=== PATIENT | male | born 1970 | race Caucasian/White ===

== ENCOUNTER 2017-11-09 10:47 | Inpatient (IN) | payer SELFPAY ==
[~2017-11-09] VITALS: Ht 175.3 cm; Wt 60.7 kg
--- NOTE | ~2017-11-09 | OP ---
PATIENT NAME: ELIE MARIA MEDICAL RECORD: [id number] :66 LOCATION:D.M2 D.2106 ADMISSION DATE:11/09/17 SURGEON: NOÉ VILLALTA MD DATE OF OPERATION: 11/14/2017 PREOPERATIVE DIAGNOSES: 1. Right foot necrosis with cellulitis. 2. Diabetes mellitus. 3. Tobacco-dependence syndrome. POSTOPERATIVE DIAGNOSES: 1. Right foot necrosis with cellulitis. 2. Diabetes mellitus. 3. Tobacco-dependence syndrome. PROCEDURE: Right BKA. SURGEON: Noé Villalta MD REPORT OF PROCEDURE: The patient's right lower extremity was prepped and draped in sterile fashion. The area was marked on the right mid calf. Using sharp dissection, we came through the skin, and then using electrocautery we came through the fascia and subcutaneous tissue. We removed any of the muscle tissue, which was present leaving a posterior flap of the gastrocnemius muscle. The three vascular bundles were found and these were ligated with 3-0 silk ties. Once the bone was completely exposed and it was transected using an oscillating saw. There was no sign of any active bleeding anywhere from the wound. We then irrigated out the wound with normal saline. The posterior flap was sutured to the anterior fascial layer using interrupted 2-0 Vicryls. A Clari drain was then placed in the subcutaneous tissue overlying the muscle. The subcutaneous tissues were then reapproximated with interrupted 3-0 Vicryls and the skin was closed with laila. COMPLICATIONS: None. CONDITION: Stable. ANESTHESIA: General endotracheal. BLOOD LOSS: 100 mL. TRANSINT:[id number] Voice Confirmation ID: [id number] DOCUMENT ID: [id number] NOÉ VILLALTA MD at 1539 CC: [id number] DICTATION DATE: 11/14/17 1335 CERTIFIED ORTHOTIST PRACTICE MANAGER: 11/14/17 1403 ADM IN [place] [id number] [place] [address]
[~2017-11-09 10:47] MED LIST: GLIMEPIRIDE4 MG PO; GLUCOPHAGE500 MG PO; HYDROCODONE-APA1 TAB PO; LEVAQUIN500 MG PO; TUMS500 MG PO
[2017-11-09] MEDS ORDERED: IBUPROFEN800 MG PO (11:46)
[2017-11-09 11:47] VITALS: BP 132/73; BMI 17.6
[2017-11-09 12:07] LABS: BASOPHILS 0.1 % (0-2); EOSINOPHILS 0.4 % (0-7); HEMATOCRIT 37.4 % (42.0-54.0); HEMOGLOBIN 12.9 g/dL (13.5-17.5); IMMATURE GRANULOCYTES 0.3 % (0-5); LYMPHOCYTES 7.5 % (15-50); MCH 32.9 pg (26.0-34.0); MCHC 34.5 g/dL (31.0-37.0); MCV 95.4 fL (80.0-100.0); MEAN PLATELET VOLUME 9.3 fL (7.4-10.4); MONOCYTES 7.8 % (2-11); NEUTROPHILS 83.9 % (40-80); PLATELET COUNT 284 10x3/uL (130-400); RBC 3.92 10x6/uL (4.20-6.10); RDW 12.4 % (11.5-14.5)
[2017-11-09 12:29] LABS: ALBUMIN 2.1 g/dL (3.4-5.0); ALKALINE PHOSPHATASE 172 U/L (46-116); ALT (SGPT) 20 U/L (10-68); CALCIUM 8.6 mg/dL (8.5-10.1); CARBON DIOXIDE 27.3 mmol/L (21.0-32.0); CHLORIDE - SERUM 91 mmol/L (98-107); CREATININE - SERUM 0.8 mg/dL (0.6-1.3); POTASSIUM - SERUM 3.8 mmol/L (3.5-5.1); PROTEIN - SERUM 6.5 g/dL (6.4-8.2); SODIUM 131 mmol/L (136-145); UREA NITROGEN 11 mg/dL (7-18); eGFR NON AFRICAN AMERICAN > 90 mL/min (90-120)
[2017-11-09 12:33] LABS: CALC OSMOLALITY 289 mosm/kg (275-300)
[2017-11-09 12:35] LABS: GLUCOSE 602 mg/dL (74-106)
[2017-11-09 19:00] VITALS: BP 91/62
[2017-11-10 04:00] VITALS: BP 103/62
[2017-11-10 05:25] LABS: BASOPHILS 0.2 % (0-2); EOSINOPHILS 2.2 % (0-7); HEMATOCRIT 34.4 % (42.0-54.0); HEMOGLOBIN 12.1 g/dL (13.5-17.5); IMMATURE GRANULOCYTES 0.6 % (0-5); LYMPHOCYTES 15.3 % (15-50); MCH 32.9 pg (26.0-34.0); MCHC 35.2 g/dL (31.0-37.0); MCV 93.5 fL (80.0-100.0); MEAN PLATELET VOLUME 9.3 fL (7.4-10.4); MONOCYTES 10.1 % (2-11); NEUTROPHILS 71.6 % (40-80); PLATELET COUNT 261 10x3/uL (130-400); RBC 3.68 10x6/uL (4.20-6.10); RDW 12.2 % (11.5-14.5); WBC 16.3 10x3/uL (4.8-10.8)
[2017-11-10 06:33] LABS: ALBUMIN 1.8 g/dL (3.4-5.0); ALKALINE PHOSPHATASE 170 U/L (46-116); ALT (SGPT) 24 U/L (10-68); CALCIUM 8.2 mg/dL (8.5-10.1); CARBON DIOXIDE 30.6 mmol/L (21.0-32.0); CHLORIDE - SERUM 95 mmol/L (98-107); SODIUM 132 mmol/L (136-145); UREA NITROGEN 11 mg/dL (7-18)
[2017-11-10 06:36] LABS: CALC OSMOLALITY 265 mosm/kg (275-300); CREATININE - SERUM 0.4 mg/dL (0.6-1.3); GLUCOSE 142 mg/dL (74-106); POTASSIUM - SERUM 3.1 mmol/L (3.5-5.1); eGFR NON AFRICAN AMERICAN > 90 mL/min (90-120)
[2017-11-10 08:55] VITALS: BP 116/71
[2017-11-10 11:46] VITALS: BP 112/74
[2017-11-10 13:09] VITALS: Ht 175.3 cm; Wt 60.7 kg
[2017-11-10 15:46] VITALS: BP 99/59
[2017-11-10 21:04] VITALS: BP 98/59
[2017-11-11 00:52] VITALS: BP 100/64
[2017-11-11 05:21] VITALS: BP 103/60
[2017-11-11 06:55] LABS: BASOPHILS 0.1 % (0-2); EOSINOPHILS 0.7 % (0-7); HEMATOCRIT 35.8 % (42.0-54.0); HEMOGLOBIN 12.3 g/dL (13.5-17.5); IMMATURE GRANULOCYTES 0.6 % (0-5); LYMPHOCYTES 10.3 % (15-50); MCH 32.5 pg (26.0-34.0); MCHC 34.4 g/dL (31.0-37.0); MCV 94.7 fL (80.0-100.0); MEAN PLATELET VOLUME 9.7 fL (7.4-10.4); MONOCYTES 9.1 % (2-11); NEUTROPHILS 79.2 % (40-80); PLATELET COUNT 318 10x3/uL (130-400); RBC 3.78 10x6/uL (4.20-6.10); RDW 12.4 % (11.5-14.5); WBC 16.3 10x3/uL (4.8-10.8)
[2017-11-11 07:28] LABS: ALBUMIN 1.8 g/dL (3.4-5.0); ALKALINE PHOSPHATASE 182 U/L (46-116); ALT (SGPT) 25 U/L (10-68); BILIRUBIN - TOTAL 0.38 mg/dL (0.2-1.3); CALC OSMOLALITY 267 mosm/kg (275-300); CALCIUM 8.1 mg/dL (8.5-10.1); CARBON DIOXIDE 30.9 mmol/L (21.0-32.0); CHLORIDE - SERUM 96 mmol/L (98-107); GLUCOSE 144 mg/dL (74-106); POTASSIUM - SERUM 3.3 mmol/L (3.5-5.1); SODIUM 133 mmol/L (136-145); UREA NITROGEN 11 mg/dL (7-18)
[2017-11-11 07:31] LABS: CREATININE - SERUM 0.6 mg/dL (0.6-1.3); eGFR NON AFRICAN AMERICAN > 90 mL/min (90-120)
[2017-11-11 08:00] VITALS: BP 102/61
[2017-11-11 12:00] VITALS: BP 105/78
[2017-11-11 20:00] VITALS: BP 103/63
[2017-11-12 04:00] VITALS: BP 114/78
[2017-11-12 05:38] LABS: BASOPHILS 0.1 % (0-2); EOSINOPHILS 0.8 % (0-7); HEMATOCRIT 34.4 % (42.0-54.0); HEMOGLOBIN 11.8 g/dL (13.5-17.5); IMMATURE GRANULOCYTES 0.6 % (0-5); LYMPHOCYTES 9.7 % (15-50); MCH 32.6 pg (26.0-34.0); MCHC 34.3 g/dL (31.0-37.0); MEAN PLATELET VOLUME 9.4 fL (7.4-10.4); MONOCYTES 8.3 % (2-11); NEUTROPHILS 80.5 % (40-80); PLATELET COUNT 303 10x3/uL (130-400); RBC 3.62 10x6/uL (4.20-6.10); RDW 12.5 % (11.5-14.5); WBC 16.4 10x3/uL (4.8-10.8)
[2017-11-12 06:01] LABS: ALBUMIN 1.7 g/dL (3.4-5.0); ALKALINE PHOSPHATASE 191 U/L (46-116); ALT (SGPT) 25 U/L (10-68); CALCIUM 8.4 mg/dL (8.5-10.1); CARBON DIOXIDE 28.8 mmol/L (21.0-32.0); CHLORIDE - SERUM 98 mmol/L (98-107); CREATININE - SERUM 0.5 mg/dL (0.6-1.3); POTASSIUM - SERUM 3.9 mmol/L (3.5-5.1); SODIUM 134 mmol/L (136-145); UREA NITROGEN 11 mg/dL (7-18); eGFR NON AFRICAN AMERICAN > 90 mL/min (90-120)
[2017-11-12 06:04] LABS: CALC OSMOLALITY 273 mosm/kg (275-300); GLUCOSE 230 mg/dL (74-106)
[2017-11-12 08:00] VITALS: BP 109/72
[2017-11-12 12:00] VITALS: BP 118/80
[2017-11-12 16:00] VITALS: BP 109/68
[2017-11-12 20:00] VITALS: BP 99/65
[2017-11-13] VITALS: BP 102/58; BP 93/57
[2017-11-13 05:48] LABS: BASOPHILS 0.2 % (0-2); EOSINOPHILS 1.6 % (0-7); HEMATOCRIT 33.7 % (42.0-54.0); HEMOGLOBIN 11.4 g/dL (13.5-17.5); IMMATURE GRANULOCYTES 0.6 % (0-5); LYMPHOCYTES 11.5 % (15-50); MCH 32.3 pg (26.0-34.0); MCHC 33.8 g/dL (31.0-37.0); MCV 95.5 fL (80.0-100.0); MEAN PLATELET VOLUME 9.2 fL (7.4-10.4); MONOCYTES 8.3 % (2-11); NEUTROPHILS 77.8 % (40-80); PLATELET COUNT 329 10x3/uL (130-400); RBC 3.53 10x6/uL (4.20-6.10); RDW 12.4 % (11.5-14.5); WBC 14.7 10x3/uL (4.8-10.8)
[2017-11-13 06:16] LABS: ALBUMIN 1.6 g/dL (3.4-5.0); ALKALINE PHOSPHATASE 189 U/L (46-116); ALT (SGPT) 21 U/L (10-68); CALC OSMOLALITY 271 mosm/kg (275-300); CALCIUM 8.1 mg/dL (8.5-10.1); CHLORIDE - SERUM 99 mmol/L (98-107); CREATININE - SERUM 0.5 mg/dL (0.6-1.3); POTASSIUM - SERUM 3.7 mmol/L (3.5-5.1); PROTEIN - SERUM 5.9 g/dL (6.4-8.2); SODIUM 134 mmol/L (136-145); UREA NITROGEN 10 mg/dL (7-18); eGFR NON AFRICAN AMERICAN > 90 mL/min (90-120)
[2017-11-13 06:17] LABS: GLUCOSE 180 mg/dL (74-106)
[2017-11-13 07:58] VITALS: BP 104/70
[2017-11-13 12:22] VITALS: BP 114/75
[2017-11-13 16:35] VITALS: BP 109/70
[2017-11-13 22:39] VITALS: BP 110/63
[2017-11-14 05:20] LABS: BASOPHILS 0.1 % (0-2); HEMOGLOBIN 10.8 g/dL (13.5-17.5); IMMATURE GRANULOCYTES 0.6 % (0-5); LYMPHOCYTES 13.7 % (15-50); MCH 32.4 pg (26.0-34.0); MCHC 33.8 g/dL (31.0-37.0); MCV 96.1 fL (80.0-100.0); MEAN PLATELET VOLUME 9.4 fL (7.4-10.4); MONOCYTES 10.1 % (2-11); NEUTROPHILS 73.5 % (40-80); PLATELET COUNT 362 10x3/uL (130-400); RBC 3.33 10x6/uL (4.20-6.10); RDW 12.5 % (11.5-14.5); WBC 13.8 10x3/uL (4.8-10.8)
[2017-11-14 05:38] LABS: ALBUMIN 1.6 g/dL (3.4-5.0); ALKALINE PHOSPHATASE 181 U/L (46-116); ALT (SGPT) 20 U/L (10-68); CALC OSMOLALITY 272 mosm/kg (275-300); CALCIUM 8.3 mg/dL (8.5-10.1); CARBON DIOXIDE 29.2 mmol/L (21.0-32.0); CHLORIDE - SERUM 99 mmol/L (98-107); CREATININE - SERUM 0.5 mg/dL (0.6-1.3); GLUCOSE 161 mg/dL (74-106); POTASSIUM - SERUM 3.8 mmol/L (3.5-5.1); PROTEIN - SERUM 5.8 g/dL (6.4-8.2); SODIUM 135 mmol/L (136-145); UREA NITROGEN 12 mg/dL (7-18); eGFR NON AFRICAN AMERICAN > 90 mL/min (90-120)
[2017-11-14 06:16] VITALS: BP 95/59
[2017-11-14 07:54] VITALS: BP 112/73
[2017-11-14 14:36] VITALS: BP 115/74
[2017-11-14 21:12] VITALS: BP 104/68
[2017-11-15 00:48] VITALS: BP 108/68
[2017-11-15 05:33] VITALS: BP 109/73
[2017-11-15 07:46] VITALS: BP 112/67
[2017-11-15 12:51] VITALS: BP 123/83
[2017-11-15 15:48] VITALS: BP 120/83
[2017-11-15 21:02] VITALS: BP 109/71
[2017-11-16 00:13] VITALS: BP 102/63
[2017-11-16 06:19] LABS: BASOPHILS 0.3 % (0-2); EOSINOPHILS 1.6 % (0-7); HEMATOCRIT 30.7 % (42.0-54.0); HEMOGLOBIN 10.3 g/dL (13.5-17.5); IMMATURE GRANULOCYTES 0.9 % (0-5); LYMPHOCYTES 14.6 % (15-50); MCH 31.9 pg (26.0-34.0); MCHC 33.6 g/dL (31.0-37.0); MEAN PLATELET VOLUME 8.8 fL (7.4-10.4); MONOCYTES 8.9 % (2-11); NEUTROPHILS 73.7 % (40-80); RBC 3.23 10x6/uL (4.20-6.10); RDW 12.1 % (11.5-14.5); WBC 11.6 10x3/uL (4.8-10.8)
[2017-11-16 06:24] LABS: CALC OSMOLALITY 268 mosm/kg (275-300); CALCIUM 7.7 mg/dL (8.5-10.1); CARBON DIOXIDE 28.3 mmol/L (21.0-32.0); CHLORIDE - SERUM 100 mmol/L (98-107); CREATININE - SERUM 0.5 mg/dL (0.6-1.3); GLUCOSE 182 mg/dL (74-106); POTASSIUM - SERUM 3.4 mmol/L (3.5-5.1); SODIUM 132 mmol/L (136-145); UREA NITROGEN 9 mg/dL (7-18); eGFR NON AFRICAN AMERICAN > 90 mL/min (90-120)
[2017-11-16 06:43] LABS: PLATELET COUNT 459 10x3/uL (130-400)
[2017-11-16 12:09] VITALS: BP 107/72
[2017-11-16] MEDS ORDERED: LISINOPRIL5 MG PO (13:40)
== END 2017-11-16 18:08 | disposition home health service (06) | DRG 617 ==
LOC: D.SDCHOLD 10:47 → D.M2 10:47
PROVIDERS: Emergency Medicine; Family Medicine; Surgery
PROC: 0Y6H0Z2 Detachment at Right Lower Leg, Mid, Open Approach (ICD-10-PCS; principal; 2017-11-14 12:30)
DX: E11.628 Type 2 diabetes mellitus with other skin complications (principal); L03.115 Cellulitis of right lower limb; F17.203 Nicotine dependence unspecified, with withdrawal; E11.65 Type 2 diabetes mellitus with hyperglycemia; Z91.14 Patient's other noncompliance with medication regimen; G54.6 Phantom limb syndrome with pain

== ENCOUNTER → 2018-01-15 18:14 | Outpatient (CLI) | payer SELFPAY ==
[2017-11-10 13:09] VITALS: BMI 17.5
[~2018-01-15 18:14] MED LIST changes: +IBUPROFEN800 MG PO; +LISINOPRIL5 MG PO
== END | disposition home or self-care (01) ==
LOC: D.LABREF 18:14
DX: Z89.511 Acquired absence of right leg below knee (principal)

== ENCOUNTER → 2018-02-26 14:54 | Outpatient (CLI) | payer MEDICAID ==
[2017-11-10 13:09] VITALS: BMI 17.5
[~2018-02-26 14:54] MED LIST changes: +BAYER CHEWABLE81 MG PO; +COLACE100 MG PO; +K-DUR20 MEQ PO; +LASIX40 MG PO; +LEVAQUIN750 MG PO; +PERCOCET 10/3251 TA1 PO; +PROTONIX I40 MG/VIAL IV; +QUESTRAN PACK4 G/PKT PO; +SYNTHROID50 MCG PO
== END | disposition home or self-care (01) ==
LOC: D.LABREF 14:54
DX: L02.91 Cutaneous abscess, unspecified (principal); Z98.890 Other specified postprocedural states

== ENCOUNTER 2018-03-13 09:57 | Inpatient (IN) | payer MEDICAID ==
[~2018-03-13] VITALS: Ht 175.3 cm; Wt 53.6 kg
--- NOTE | ~2018-03-13 | OP ---
PATIENT NAME: ELIE MARIA MEDICAL RECORD: [id number] :68 LOCATION:D.MS Fleming2230 ADMISSION DATE:03/13/18 SURGEON: NOÉ VILLALTA MD DATE OF OPERATION: 03/20/2018 PREOPERATIVE DIAGNOSES: 1. Osteomyelitis of the right lower extremity. 2. Right below-knee amputation stump abscess. 3. Sepsis. 4. Diabetes mellitus. 5. Tobacco dependence syndrome. POSTOPERATIVE DIAGNOSES: 1. Osteomyelitis of the right lower extremity. 2. Right below-knee amputation stump abscess. 3. Sepsis. 4. Diabetes mellitus. 5. Tobacco dependence syndrome. PROCEDURE: 1. Left upper extremity PICC line placement with fluoroscopic interpretation. 2. Incision and debridement of right lower extremity abscess. SURGEON: Noé Villalta MD REPORT OF PROCEDURE: The patient's left upper extremity was prepped and draped in sterile fashion. Using ultrasound guidance, a needle was used to cannulate the left brachial vein and a guidewire was advanced with ease. Fluoro was used to note that the wire was in good position in the venous system. The dilator trocar device was placed over the wire. The PICC line was then cut with a beveled tip at 42 cm. The catheter was advanced over the wire and resting in good position at the right atrial superior vena caval junction. The dilator was then removed. The catheter aspirated nonpulsatile dark blood and flushed easily with heparinized saline. This was sutured into place with 3-0 Prolenes and dressed appropriately. The right lower extremity was then prepped and draped in sterile fashion. We began irrigating out the wound with peroxide and saline solution and there was not still noted to be purulent material present. I did a digital manipulation of the tissue and was never able to find any other pockets present. Eventually just extended the incisions on the posterior aspect of the thigh and calf. This allowed me to see more clearly inside the wound and performed debridement of some of the surrounding fatty tissue, no robbie purulent pockets were noted, and the underlying fascia and muscular tissues all appeared to be viable. We irrigated out the wound again with peroxide solution and then packed the wound with Kerlix dipped in peroxide. We then dressed the area with 4 x 4s and Felice Souzax. COMPLICATIONS: None. CONDITION: Stable. ANESTHESIA: General endotracheal. BLOOD LOSS: 30 mL. TRANSINT:[id number] Voice Confirmation ID: [id number] DOCUMENT ID: [id number] OPERATIVE REPORT [id number] ELIE MARIA CHRISTIAN MD at 0804 CC: [id number] DICTATION DATE: 03/20/18 1541 VFX ARTIST: 03/20/18 1605 DIS IN 03/21/18 [place] [address] [place] [id number]
--- NOTE | ~2018-03-13 | OP ---
PATIENT NAME: ELIE MARIA MEDICAL RECORD: [id number] :68 LOCATION:D.MS Fleming2230 ADMISSION DATE:03/13/18 SURGEON: NOÉ VILLALTA MD DATE OF OPERATION: 03/15/2018 PREOPERATIVE DIAGNOSES: 1. Right BKA stump infection. 2. Right lower extremity abscess. 3. Diabetes mellitus. 4. Tobacco dependence syndrome. 5. Sepsis. POSTOPERATIVE DIAGNOSES: 1. Right BKA stump infection. 2. Right lower extremity abscess. 3. Diabetes mellitus. 4. Tobacco dependence syndrome. 5. Sepsis. PROCEDURE: I&D of the right lower extremity. SURGEON: Noé Villalta MD REPORT OF PROCEDURE: The patient's right lower extremity was prepped and draped in sterile fashion. The patient had an opening at the stump incision where pus was draining. We probed this area or able to extend a suction catheter into the posterior aspect of the leg. A longitudinal incision was made in this area and we found a large amount of pus. We continued to probe up the leg and on the posterior aspect of the thigh, we reached the extent of the abscess pocket. Another opening was made over this area and there was a large amount of pus, there are 2. We irrigated out these areas with normal saline followed by peroxide and saline solution. At the conclusion of the case, we packed the wound with a 2-inch Kerlix had been dipped in peroxide and dressed it with 4 x 4's and Kerlix. COMPLICATIONS: None. CONDITION: Stable. ANESTHESIA: General endotracheal. BLOOD LOSS: Minimal. TRANSINT:[id number] Voice Confirmation ID: [id number] DOCUMENT ID: [id number] NOÉ VILLALTA MD at 0804 CC: SUSAN CASTELAN MD [id number] DICTATION DATE: 03/15/18 1237 CATHEAD WORKER: 03/15/18 1248 DIS IN 03/21/18 [place] [id number]
[~2018-03-13 09:57] MED LIST changes: -BAYER CHEWABLE81 MG PO; -COLACE100 MG PO; -K-DUR20 MEQ PO; -LASIX40 MG PO; -LEVAQUIN750 MG PO; -PERCOCET 10/3251 TA1 PO; -PROTONIX I40 MG/VIAL IV; -QUESTRAN PACK4 G/PKT PO; -SYNTHROID50 MCG PO
[2018-03-13 12:34] LABS: HEMATOCRIT 38.6 % (42.0-54.0); HEMOGLOBIN 13.8 g/dL (13.5-17.5); MCH 32.6 pg (26.0-34.0); MCHC 35.8 g/dL (31.0-37.0); MCV 91.3 fL (80.0-100.0); MEAN PLATELET VOLUME 9.5 fL (7.4-10.4); PLATELET COUNT 375 10x3/uL (130-400); RBC 4.23 10x6/uL (4.20-6.10); RDW 13.4 % (11.5-14.5); WBC 22.3 10x3/uL (4.8-10.8)
[2018-03-13 12:41] LABS: CALC OSMOLALITY 277 mosm/kg (275-300); CALCIUM 8.5 mg/dL (8.5-10.1); CARBON DIOXIDE 29.8 mmol/L (21.0-32.0); CHLORIDE - SERUM 90 mmol/L (98-107); CREATININE - SERUM 0.4 mg/dL (0.6-1.3); POTASSIUM - SERUM 5.9 mmol/L (3.5-5.1); SODIUM 129 mmol/L (136-145); UREA NITROGEN 12 mg/dL (7-18); eGFR NON AFRICAN AMERICAN > 90 mL/min (90-120)
[2018-03-13 12:42] LABS: GLUCOSE 432 mg/dL (74-106)
[2018-03-13 13:10] LABS: LYMPHOCYTES 13 % (15-50); MONOCYTES 3 % (2-11); NEUTROPHILS 62 % (40-80); PLATELET ESTIMATE NORMAL
[2018-03-13 13:43] LABS: ERYTHROCYTE SEDIMENTATION RATE 61 mm/hr (0-20)
[2018-03-13] MEDS ORDERED: GLIMEPIRIDE4 MG PO (16:17)
[2018-03-13] MEDS ORDERED: PERCOCET 10/3251 TA1 PO (16:19)
[2018-03-13 18:18] VITALS: BP 114/75
[2018-03-13 20:00] VITALS: BP 100/57
[2018-03-14 04:00] VITALS: BP 96/56
[2018-03-14 07:00] LABS: BASOPHILS 0.1 % (0-2); EOSINOPHILS 0.5 % (0-7); HEMATOCRIT 37.7 % (42.0-54.0); HEMOGLOBIN 13.2 g/dL (13.5-17.5); IMMATURE GRANULOCYTES 0.4 % (0-5); LYMPHOCYTES 9.7 % (15-50); MCH 31.5 pg (26.0-34.0); MONOCYTES 6.7 % (2-11); NEUTROPHILS 82.6 % (40-80); RBC 4.19 10x6/uL (4.20-6.10); RDW 13.3 % (11.5-14.5); WBC 19.5 10x3/uL (4.8-10.8)
[2018-03-14 07:01] LABS: PLATELET COUNT 289 10x3/uL (130-400)
[2018-03-14 07:33] LABS: CALC OSMOLALITY 267 mosm/kg (275-300); CALCIUM 7.9 mg/dL (8.5-10.1); CARBON DIOXIDE 32.8 mmol/L (21.0-32.0); CHLORIDE - SERUM 95 mmol/L (98-107); CREATININE - SERUM 0.4 mg/dL (0.6-1.3); GLUCOSE 139 mg/dL (74-106); POTASSIUM - SERUM 3.2 mmol/L (3.5-5.1); SODIUM 133 mmol/L (136-145); UREA NITROGEN 13 mg/dL (7-18); eGFR NON AFRICAN AMERICAN > 90 mL/min (90-120)
[2018-03-14 08:46] VITALS: BP 111/70
[2018-03-14 13:37] VITALS: BMI 17.5
[2018-03-14 16:33] VITALS: BP 124/84
[2018-03-14 20:00] VITALS: BP 109/60
[2018-03-15] VITALS (13 sets, daily range): BP systolic 90–134; BP diastolic 54–86
[2018-03-15] MEDS ORDERED: SYNTHROID50 MCG PO ×2 (01:10→01:12)
[2018-03-15] MEDS ORDERED: BAYER CHEWABLE81 MG PO (01:12)
[2018-03-15] MEDS ORDERED: COLACE100 MG PO (01:14)
[2018-03-15 05:18] LABS: BASOPHILS 0.1 % (0-2); EOSINOPHILS 0.8 % (0-7); HEMATOCRIT 34.5 % (42.0-54.0); HEMOGLOBIN 11.8 g/dL (13.5-17.5); IMMATURE GRANULOCYTES 0.4 % (0-5); LYMPHOCYTES 10.9 % (15-50); MCH 30.9 pg (26.0-34.0); MCHC 34.2 g/dL (31.0-37.0); MCV 90.3 fL (80.0-100.0); MEAN PLATELET VOLUME 8.9 fL (7.4-10.4); MONOCYTES 7.5 % (2-11); NEUTROPHILS 80.3 % (40-80); PLATELET COUNT 275 10x3/uL (130-400); RBC 3.82 10x6/uL (4.20-6.10); RDW 13.3 % (11.5-14.5)
[2018-03-15 05:33] LABS: WBC 13.7 10x3/uL (4.8-10.8)
[2018-03-15 05:36] LABS: ALBUMIN 1.6 g/dL (3.4-5.0); ALKALINE PHOSPHATASE 169 U/L (46-116); ALT (SGPT) 16 U/L (10-68); CALCIUM 7.5 mg/dL (8.5-10.1); CARBON DIOXIDE 29.4 mmol/L (21.0-32.0); CHLORIDE - SERUM 98 mmol/L (98-107); CREATININE - SERUM 0.5 mg/dL (0.6-1.3); GLUCOSE 181 mg/dL (74-106); PROTEIN - SERUM 5.4 g/dL (6.4-8.2); SODIUM 135 mmol/L (136-145); eGFR NON AFRICAN AMERICAN > 90 mL/min (90-120)
[2018-03-15 05:43] LABS: CALC OSMOLALITY 273 mosm/kg (275-300); UREA NITROGEN 9 mg/dL (7-18)
[2018-03-15 05:44] LABS: POTASSIUM - SERUM 2.9 mmol/L (3.5-5.1)
[2018-03-15 11:15] LABS: MAGNESIUM - SERUM 1.6 mg/dL (1.8-2.4); PHOSPHOROUS 2.9 mg/dL (2.5-4.9)
[2018-03-16] VITALS (7 sets, daily range): BP systolic 93–115; BP diastolic 55–76; Ht 175.3 cm; Wt 53.6 kg
[2018-03-16 05:32] LABS: BASOPHILS 0.1 % (0-2); EOSINOPHILS 0.7 % (0-7); HEMATOCRIT 34.1 % (42.0-54.0); HEMOGLOBIN 11.5 g/dL (13.5-17.5); IMMATURE GRANULOCYTES 0.6 % (0-5); LYMPHOCYTES 9.8 % (15-50); MCH 30.7 pg (26.0-34.0); MCHC 33.7 g/dL (31.0-37.0); MCV 91.2 fL (80.0-100.0); MEAN PLATELET VOLUME 8.8 fL (7.4-10.4); MONOCYTES 6.8 % (2-11); PLATELET COUNT 274 10x3/uL (130-400); RBC 3.74 10x6/uL (4.20-6.10); RDW 13.5 % (11.5-14.5); WBC 13.6 10x3/uL (4.8-10.8)
[2018-03-16 05:56] LABS: ALBUMIN 1.4 g/dL (3.4-5.0); ALKALINE PHOSPHATASE 156 U/L (46-116); ALT (SGPT) 14 U/L (10-68); CALCIUM 7.3 mg/dL (8.5-10.1); CARBON DIOXIDE 27.4 mmol/L (21.0-32.0); CHLORIDE - SERUM 100 mmol/L (98-107); CREATININE - SERUM 0.6 mg/dL (0.6-1.3); PROTEIN - SERUM 5.2 g/dL (6.4-8.2); SODIUM 134 mmol/L (136-145); UREA NITROGEN 8 mg/dL (7-18); eGFR NON AFRICAN AMERICAN > 90 mL/min (90-120)
[2018-03-16 05:57] LABS: CALC OSMOLALITY 277 mosm/kg (275-300); GLUCOSE 312 mg/dL (74-106); POTASSIUM - SERUM 3.5 mmol/L (3.5-5.1)
[2018-03-17 04:36] VITALS: BP 109/70
[2018-03-17 04:40] VITALS: BP 129/67
[2018-03-17 07:14] LABS: BASOPHILS 0.1 % (0-2); EOSINOPHILS 1.3 % (0-7); HEMATOCRIT 33.6 % (42.0-54.0); HEMOGLOBIN 11.3 g/dL (13.5-17.5); IMMATURE GRANULOCYTES 0.5 % (0-5); LYMPHOCYTES 10.9 % (15-50); MCH 30.7 pg (26.0-34.0); MCHC 33.6 g/dL (31.0-37.0); MCV 91.3 fL (80.0-100.0); MEAN PLATELET VOLUME 8.7 fL (7.4-10.4); MONOCYTES 6.8 % (2-11); NEUTROPHILS 80.4 % (40-80); PLATELET COUNT 261 10x3/uL (130-400); RBC 3.68 10x6/uL (4.20-6.10); RDW 13.8 % (11.5-14.5); WBC 12.8 10x3/uL (4.8-10.8)
[2018-03-17 07:53] LABS: ALBUMIN 1.4 g/dL (3.4-5.0); ALKALINE PHOSPHATASE 184 U/L (46-116); ALT (SGPT) 16 U/L (10-68); BILIRUBIN - TOTAL 0.34 mg/dL (0.2-1.3); CALC OSMOLALITY 276 mosm/kg (275-300); CALCIUM 7.3 mg/dL (8.5-10.1); CARBON DIOXIDE 27.7 mmol/L (21.0-32.0); CHLORIDE - SERUM 100 mmol/L (98-107); CREATININE - SERUM 0.5 mg/dL (0.6-1.3); GLUCOSE 269 mg/dL (74-106); PROTEIN - SERUM 5.3 g/dL (6.4-8.2); SODIUM 135 mmol/L (136-145); UREA NITROGEN 7 mg/dL (7-18); eGFR NON AFRICAN AMERICAN > 90 mL/min (90-120)
[2018-03-17 08:03] LABS: POTASSIUM - SERUM 3.6 mmol/L (3.5-5.1)
[2018-03-17 09:09] VITALS: BP 114/75
[2018-03-17 12:30] VITALS: BP 130/85
[2018-03-17 15:58] VITALS: BP 93/60
[2018-03-17 20:00] VITALS: BP 108/69
[2018-03-18] VITALS: BP 105/72
[2018-03-18 04:00] VITALS: BP 117/76
[2018-03-18 05:42] LABS: BASOPHILS 0.1 % (0-2); EOSINOPHILS 1.4 % (0-7); HEMATOCRIT 33.6 % (42.0-54.0); HEMOGLOBIN 11.3 g/dL (13.5-17.5); IMMATURE GRANULOCYTES 0.6 % (0-5); LYMPHOCYTES 14.5 % (15-50); MCH 30.5 pg (26.0-34.0); MCHC 33.6 g/dL (31.0-37.0); MCV 90.8 fL (80.0-100.0); MEAN PLATELET VOLUME 8.4 fL (7.4-10.4); MONOCYTES 8.1 % (2-11); NEUTROPHILS 75.3 % (40-80); PLATELET COUNT 279 10x3/uL (130-400); RDW 13.7 % (11.5-14.5); WBC 10.8 10x3/uL (4.8-10.8)
[2018-03-18 06:09] LABS: ALBUMIN 1.4 g/dL (3.4-5.0); ALKALINE PHOSPHATASE 166 U/L (46-116); ALT (SGPT) 12 U/L (10-68); BILIRUBIN - TOTAL 0.33 mg/dL (0.2-1.3); CALC OSMOLALITY 272 mosm/kg (275-300); CALCIUM 7.5 mg/dL (8.5-10.1); CARBON DIOXIDE 26.7 mmol/L (21.0-32.0); CHLORIDE - SERUM 100 mmol/L (98-107); CREATININE - SERUM 0.4 mg/dL (0.6-1.3); POTASSIUM - SERUM 3.9 mmol/L (3.5-5.1); PROTEIN - SERUM 5.4 g/dL (6.4-8.2); SODIUM 134 mmol/L (136-145); UREA NITROGEN 7 mg/dL (7-18); eGFR NON AFRICAN AMERICAN > 90 mL/min (90-120)
[2018-03-18 06:10] LABS: GLUCOSE 221 mg/dL (74-106)
[2018-03-18 08:57] VITALS: BP 119/71
[2018-03-18 12:22] VITALS: BP 108/71
[2018-03-18 16:39] VITALS: BP 120/83
[2018-03-18 20:00] VITALS: BP 100/63
[2018-03-19] VITALS: BP 98/59
[2018-03-19 04:00] VITALS: BP 105/64
[2018-03-19 06:12] LABS: BASOPHILS 0.1 % (0-2); EOSINOPHILS 1.2 % (0-7); HEMOGLOBIN 11.2 g/dL (13.5-17.5); IMMATURE GRANULOCYTES 0.6 % (0-5); LYMPHOCYTES 16.9 % (15-50); MCH 30.9 pg (26.0-34.0); MCHC 33.9 g/dL (31.0-37.0); MCV 90.9 fL (80.0-100.0); MEAN PLATELET VOLUME 8.5 fL (7.4-10.4); MONOCYTES 10.4 % (2-11); NEUTROPHILS 70.8 % (40-80); RBC 3.63 10x6/uL (4.20-6.10); RDW 13.7 % (11.5-14.5); WBC 10.5 10x3/uL (4.8-10.8)
[2018-03-19 06:29] LABS: PLATELET COUNT 346 10x3/uL (130-400)
[2018-03-19 07:24] LABS: ALBUMIN 1.3 g/dL (3.4-5.0); ALKALINE PHOSPHATASE 150 U/L (46-116); ALT (SGPT) 9 U/L (10-68); BILIRUBIN - TOTAL 0.32 mg/dL (0.2-1.3); CALCIUM 7.5 mg/dL (8.5-10.1); CARBON DIOXIDE 29.3 mmol/L (21.0-32.0); CHLORIDE - SERUM 101 mmol/L (98-107); CREATININE - SERUM 0.4 mg/dL (0.6-1.3); PROTEIN - SERUM 5.5 g/dL (6.4-8.2); SODIUM 137 mmol/L (136-145); UREA NITROGEN 8 mg/dL (7-18); eGFR NON AFRICAN AMERICAN > 90 mL/min (90-120)
[2018-03-19 07:25] LABS: CALC OSMOLALITY 270 mosm/kg (275-300); GLUCOSE 87 mg/dL (74-106); POTASSIUM - SERUM 3.2 mmol/L (3.5-5.1)
[2018-03-19 08:27] VITALS: BP 127/71
[2018-03-19 12:29] VITALS: BP 119/82
[2018-03-19 16:48] VITALS: BP 102/63
[2018-03-19 20:00] VITALS: BP 92/64
[2018-03-20 04:00] VITALS: BP 118/76
[2018-03-20 07:30] LABS: BASOPHILS 0.2 % (0-2); EOSINOPHILS 1.1 % (0-7); HEMATOCRIT 32.5 % (42.0-54.0); LYMPHOCYTES 16.2 % (15-50); MCH 30.6 pg (26.0-34.0); MCHC 33.8 g/dL (31.0-37.0); MCV 90.5 fL (80.0-100.0); MEAN PLATELET VOLUME 8.3 fL (7.4-10.4); MONOCYTES 6.7 % (2-11); NEUTROPHILS 74.8 % (40-80); PLATELET COUNT 370 10x3/uL (130-400); RBC 3.59 10x6/uL (4.20-6.10); RDW 13.5 % (11.5-14.5)
[2018-03-20 07:38] LABS: ALBUMIN 1.4 g/dL (3.4-5.0); ALKALINE PHOSPHATASE 151 U/L (46-116); ALT (SGPT) 9 U/L (10-68); C-REACTIVE PROTEIN 7.2 mg/dL (0.0-0.9); CALCIUM 7.6 mg/dL (8.5-10.1); CARBON DIOXIDE 28.4 mmol/L (21.0-32.0); CHLORIDE - SERUM 102 mmol/L (98-107); CREATININE - SERUM 0.5 mg/dL (0.6-1.3); POTASSIUM - SERUM 3.7 mmol/L (3.5-5.1); PROTEIN - SERUM 5.6 g/dL (6.4-8.2); SODIUM 136 mmol/L (136-145); UREA NITROGEN 9 mg/dL (7-18); eGFR NON AFRICAN AMERICAN > 90 mL/min (90-120)
[2018-03-20 07:44] LABS: CALC OSMOLALITY 275 mosm/kg (275-300); GLUCOSE 192 mg/dL (74-106)
[2018-03-20 08:34] LABS: ERYTHROCYTE SEDIMENTATION RATE 60 mm/hr (0-20)
[2018-03-20 09:15] VITALS: BP 117/72
[2018-03-20 14:25] VITALS: BP 96/60
[2018-03-20 20:00] VITALS: BP 92/60
[2018-03-21 04:00] VITALS: BP 93/54
[2018-03-21 07:25] LABS: ALBUMIN 1.3 g/dL (3.4-5.0); ALKALINE PHOSPHATASE 120 U/L (46-116); CALCIUM 7.6 mg/dL (8.5-10.1); CHLORIDE - SERUM 105 mmol/L (98-107); CREATININE - SERUM 0.5 mg/dL (0.6-1.3); GLUCOSE 152 mg/dL (74-106); POTASSIUM - SERUM 3.3 mmol/L (3.5-5.1); PROTEIN - SERUM 5.3 g/dL (6.4-8.2); SODIUM 140 mmol/L (136-145); eGFR NON AFRICAN AMERICAN > 90 mL/min (90-120)
[2018-03-21 07:32] LABS: ALT (SGPT) 12 U/L (10-68); CALC OSMOLALITY 281 mosm/kg (275-300); UREA NITROGEN 12 mg/dL (7-18)
[2018-03-21 07:40] LABS: BASOPHILS 0.2 % (0-2); EOSINOPHILS 0.6 % (0-7); HEMATOCRIT 30.4 % (42.0-54.0); HEMOGLOBIN 10.1 g/dL (13.5-17.5); IMMATURE GRANULOCYTES 0.9 % (0-5); LYMPHOCYTES 22.1 % (15-50); MCH 30.6 pg (26.0-34.0); MCHC 33.2 g/dL (31.0-37.0); MCV 92.1 fL (80.0-100.0); MEAN PLATELET VOLUME 8.4 fL (7.4-10.4); MONOCYTES 5.9 % (2-11); NEUTROPHILS 70.3 % (40-80); PLATELET COUNT 390 10x3/uL (130-400); RDW 13.6 % (11.5-14.5); WBC 11.1 10x3/uL (4.8-10.8)
[2018-03-21] MEDS ORDERED: PERCOCET 10/3251 TA1 PO (08:53)
[2018-03-21 09:30] VITALS: BP 127/87
== END 2018-03-21 11:00 | disposition home health service (06) | DRG 500 ==
LOC: D.SDCHOLD 09:57 → D.MS 09:57
PROVIDERS: Family Medicine; Surgery
PROC: 0JDN0ZZ Extraction of Right Lower Leg Subcutaneous Tissue and Fascia, Open Approach (ICD-10-PCS; principal; 2018-03-15 14:00)
PROC: 02HV33Z Insertion of Infusion Device into Superior Vena Cava, Percutaneous Approach (ICD-10-PCS; 2018-03-20)
PROC: B5181ZA Fluoroscopy of Superior Vena Cava using Low Osmolar Contrast, Guidance (ICD-10-PCS; 2018-03-20)
PROC: 0JDN0ZZ Extraction of Right Lower Leg Subcutaneous Tissue and Fascia, Open Approach (ICD-10-PCS; 2018-03-20 14:15)
DX: T87.43 Infection of amputation stump, right lower extremity (principal); A41.9 Sepsis, unspecified organism; M86.9 Osteomyelitis, unspecified; L03.115 Cellulitis of right lower limb; E87.1 Hypo-osmolality and hyponatremia; F17.203 Nicotine dependence unspecified, with withdrawal; Z68.1 Body mass index [BMI] 19.9 or less, adult; L02.415 Cutaneous abscess of right lower limb; E11.69 Type 2 diabetes mellitus with other specified complication; E11.65 Type 2 diabetes mellitus with hyperglycemia; Z91.19 Patient's noncompliance with other medical treatment and regimen; E87.5 Hyperkalemia; R63.6 Underweight

== ENCOUNTER → 2018-03-26 21:54 | Outpatient (CLI) | payer MEDICAID ==
[2018-03-16 03:56] VITALS: BMI 17.4
[~2018-03-26 21:54] MED LIST changes: +BAYER CHEWABLE81 MG PO; +COLACE100 MG PO; +K-DUR20 MEQ PO; +LASIX40 MG PO; +LEVAQUIN750 MG PO; +PERCOCET 10/3251 TA1 PO; +PROTONIX I40 MG/VIAL IV; +QUESTRAN PACK4 G/PKT PO; +SYNTHROID50 MCG PO
[2018-03-26 23:41] LABS: BASOPHILS 0.4 % (0-2); EOSINOPHILS 0.8 % (0-7); HEMOGLOBIN 10.4 g/dL (13.5-17.5); IMMATURE GRANULOCYTES 0.5 % (0-5); LYMPHOCYTES 15.6 % (15-50); MCH 31.7 pg (26.0-34.0); MCHC 33.5 g/dL (31.0-37.0); MCV 94.5 fL (80.0-100.0); MEAN PLATELET VOLUME 8.4 fL (7.4-10.4); MONOCYTES 6.9 % (2-11); NEUTROPHILS 75.8 % (40-80); PLATELET COUNT 434 10x3/uL (130-400); RBC 3.28 10x6/uL (4.20-6.10); RDW 14.1 % (11.5-14.5); WBC 13.1 10x3/uL (4.8-10.8)
[2018-03-26 23:53] LABS: C-REACTIVE PROTEIN 6.4 mg/dL (0.0-0.9); CREATININE - SERUM 0.6 mg/dL (0.6-1.3)
[2018-03-27 00:45] LABS: ERYTHROCYTE SEDIMENTATION RATE 55 mm/hr (0-20)
== END | disposition home or self-care (01) ==
LOC: D.LAB 21:54
PROVIDERS: Surgery
DX: T87.89 Other complications of amputation stump (principal)

== ENCOUNTER 2018-03-27 21:48 | Inpatient (IN) | payer MEDICAID ==
[~2018-03-27] VITALS: Ht 175.3 cm; Wt 66.8 kg
[~2018-03-27 21:48] MED LIST changes: -K-DUR20 MEQ PO; -LASIX40 MG PO; -LEVAQUIN750 MG PO; -PROTONIX I40 MG/VIAL IV; -QUESTRAN PACK4 G/PKT PO
[2018-03-27 23:42] LABS: HEMATOCRIT 30.3 % (42.0-54.0); HEMOGLOBIN 10.5 g/dL (13.5-17.5); LYMPHOCYTES 16.3 % (15-50); MCH 31.7 pg (26.0-34.0); MCHC 34.7 g/dL (31.0-37.0); MCV 91.5 fL (80.0-100.0); MEAN PLATELET VOLUME 7.3 fL (7.4-10.4); NEUTROPHILS 74.5 % (40-80); PLATELET COUNT 561 10x3/uL (130-400); RBC 3.31 10x6/uL (4.20-6.10); RDW 15.3 % (11.5-14.5); WBC 12.6 10x3/uL (4.8-10.8)
[2018-03-27 23:50] LABS: ALBUMIN 1.3 g/dL (3.4-5.0); ALKALINE PHOSPHATASE 135 U/L (46-116); ALT (SGPT) 10 U/L (10-68); CALC OSMOLALITY 287 mosm/kg (275-300); CALCIUM 7.3 mg/dL (8.5-10.1); CARBON DIOXIDE 28.9 mmol/L (21.0-32.0); CHLORIDE - SERUM 104 mmol/L (98-107); CREATININE - SERUM 0.5 mg/dL (0.6-1.3); GLUCOSE 373 mg/dL (74-106); POTASSIUM - SERUM 3.2 mmol/L (3.5-5.1); PROTEIN - SERUM 5.7 g/dL (6.4-8.2); SODIUM 138 mmol/L (136-145); eGFR NON AFRICAN AMERICAN > 90 mL/min (90-120)
[2018-03-27 23:51] LABS: UREA NITROGEN 4 mg/dL (7-18)
[2018-03-27 23:57] LABS: PRO BNP 3270 pg/mL (0-125)
[2018-03-28 19:00] VITALS: BP 114/68
[2018-03-29 02:22] VITALS: Ht 175.3 cm; Wt 66.8 kg
[2018-03-29 04:00] VITALS: BP 119/75
[2018-03-29 06:56] LABS: BASOPHILS 0.3 % (0-2); HEMATOCRIT 29.5 % (42.0-54.0); HEMOGLOBIN 9.9 g/dL (13.5-17.5); IMMATURE GRANULOCYTES 0.5 % (0-5); LYMPHOCYTES 12.9 % (15-50); MCHC 33.6 g/dL (31.0-37.0); MCV 92.5 fL (80.0-100.0); MEAN PLATELET VOLUME 8.2 fL (7.4-10.4); NEUTROPHILS 79.3 % (40-80); RBC 3.19 10x6/uL (4.20-6.10); RDW 14.6 % (11.5-14.5); WBC 11.6 10x3/uL (4.8-10.8)
[2018-03-29 07:03] LABS: ALBUMIN 1.2 g/dL (3.4-5.0); ALKALINE PHOSPHATASE 99 U/L (46-116); ALT (SGPT) 8 U/L (10-68); CALCIUM 7.4 mg/dL (8.5-10.1); CARBON DIOXIDE 25.7 mmol/L (21.0-32.0); CHLORIDE - SERUM 103 mmol/L (98-107); CREATININE - SERUM 0.6 mg/dL (0.6-1.3); PROTEIN - SERUM 5.4 g/dL (6.4-8.2); SODIUM 138 mmol/L (136-145); eGFR NON AFRICAN AMERICAN > 90 mL/min (90-120)
[2018-03-29 07:05] LABS: CALC OSMOLALITY 279 mosm/kg (275-300); GLUCOSE 215 mg/dL (74-106); UREA NITROGEN 7 mg/dL (7-18)
[2018-03-29 07:09] LABS: PLATELET COUNT 404 10x3/uL (130-400)
[2018-03-29 08:44] VITALS: BP 121/65
[2018-03-29 11:50] VITALS: BP 140/71
[2018-03-29] MEDS ORDERED: LEVAQUIN750 MG PO (13:29)
== END 2018-03-29 17:41 | disposition home or self-care (01) | DRG 564 ==
LOC: D.ER 21:48 → D.EDHOLD 23:04 → D.M2 23:04
PROVIDERS: Family Medicine; Physician Assistant Medical
DX: T87.43 Infection of amputation stump, right lower extremity (principal); J18.9 Pneumonia, unspecified organism; F17.203 Nicotine dependence unspecified, with withdrawal; M86.661 Other chronic osteomyelitis, right tibia and fibula; Y83.8 Other surgical procedures as the cause of abnormal reaction of the patient, or of later complication, without mention of misadventure at the time of the procedure; E11.65 Type 2 diabetes mellitus with hyperglycemia; E87.6 Hypokalemia; E11.69 Type 2 diabetes mellitus with other specified complication

== ENCOUNTER → 2018-04-02 19:10 | Outpatient (CLI) | payer MEDICAID ==
[2018-03-29 02:22] VITALS: BMI 19.1
[~2018-04-02 19:10] MED LIST changes: +K-DUR20 MEQ PO; +LASIX40 MG PO; +LEVAQUIN750 MG PO; +PROTONIX I40 MG/VIAL IV; +QUESTRAN PACK4 G/PKT PO
[2018-04-02 20:10] LABS: BASOPHILS 0.5 % (0-2); EOSINOPHILS 2.2 % (0-7); HEMATOCRIT 25.7 % (42.0-54.0); HEMOGLOBIN 8.8 g/dL (13.5-17.5); IMMATURE GRANULOCYTES 0.3 % (0-5); LYMPHOCYTES 25.7 % (15-50); MCH 32.1 pg (26.0-34.0); MCHC 34.2 g/dL (31.0-37.0); MCV 93.8 fL (80.0-100.0); MEAN PLATELET VOLUME 8.7 fL (7.4-10.4); MONOCYTES 7.5 % (2-11); NEUTROPHILS 63.8 % (40-80); RBC 2.74 10x6/uL (4.20-6.10); WBC 5.9 10x3/uL (4.8-10.8)
[2018-04-02 20:13] LABS: PLATELET COUNT 197 10x3/uL (130-400)
[2018-04-02 20:20] LABS: CREATININE - SERUM 0.4 mg/dL (0.6-1.3)
[2018-04-02 21:47] LABS: ERYTHROCYTE SEDIMENTATION RATE 38 mm/hr (0-20)
== END | disposition home or self-care (01) ==
LOC: D.LABREF 19:10
PROVIDERS: Surgery
DX: T87.40 Infection of amputation stump, unspecified extremity (principal)

== ENCOUNTER 2018-04-09 12:02 | Inpatient (IN) | payer MEDICAID ==
[~2018-04-09] VITALS: Ht 175.3 cm; Wt 65.0 kg
--- NOTE | ~2018-04-09 | CN ---
PATIENT NAME:ELIE MARIA MEDICAL RECORD: [id number] : 66 LOCATION:D.MS Fleming2230 ADMIT DATE: 04/09/18 ACCOUNT: [id number] CONSULTING PHYSICIAN: SHAUN TOMLINSON MD REFERRING PHYSICIAN: JEY HUNTER MD DATE OF CONSULTATION: 04/11/2018 REQUESTING PHYSICIAN: Dr. Jey Hunter REASON FOR CONSULTATION: Questionable pneumonia, pleural effusion. HISTORY OF PRESENT ILLNESS: Mr. Maria is a 48-year-old gentleman who was just admitted in February over here, he was visited by the home health care nurse and noted that he is gaining weight and he was swollen all over. He got some shortness of breath. Denies any fever and chill. There is cough with very little sputum production. The patient came into the ER. Workup showed that he has a positive D-dimer and the CTA was negative for PE. He has generalized anasarca and with pleural effusion and atelectasis, possible pneumonia. REVIEW OF SYSTEMS: As in the history of present illness. PAST MEDICAL HISTORY: 1. Diabetes mellitus. 2. Hypothyroidism. PAST SURGICAL HISTORY: He had left below-knee amputation. ALLERGIES: No known drug allergies. MEDICATIONS: Summay is reviewed. PERSONAL AND SOCIAL HISTORY: He is a drinker. FAMILY HISTORY: Not known. PHYSICAL EXAMINATION: GENERAL: Now, the patient is sitting in bed. He is not in acute distress. VITAL SIGNS: The blood pressure is 106/67, pulse is 117, respiration is 20, temperature 99.9, SpO2 is 97% on 6 liters nasal cannula. HEENT: Conjunctivae are pink. Sclerae are not icteric. NECK: Supple, no JVD. CHEST: The chest excursion is minimal on both sides. Dullness on percussion at the right base. There are crackles. HEART: Rhythm regular, normal sound, no murmur. ABDOMEN: Soft, bowel sounds present. No hepatosplenomegaly. RECTAL: Deferred. EXTREMITIES: No cyanosis, no clubbing, no pedal edema. SKIN: Warm, normal turgor. CENTRAL NERVOUS SYSTEM: The patient is awake and alert. There are no obvious skin abnormalities. The gait was not tested. IMAGING: CTA Of The Chest: There are no pulmonary embolisms, but there are bilateral pleural effusions with compressive atelectasis. There is septal thickening, ground-glass attenuation in the lungs secondary to edema. There were also a generalized anasarca and chest wall thickening due to edema. CONSULT REPORT [id number] ELIE MARIA LABORATORY DATA: CBC: WBC is 11.2, hemoglobin is 10, hematocrit is 30.6 with a platelet count of 282. Chemistry: Sodium 140, potassium 3.5, BUN is 8, creatinine 0.5. The proBNP is 3482. ABG on admission, the pH was 7.42, pCO2 is 40.2, the pO2 was 48. IMPRESSION: 1. Acute hypoxic respiratory failure secondary to pulmonary edema. 2. Pulmonary edema. 3. Bilateral pleural effusions, right more than the left lung. 4. Congestive heart failure, possible chronic diastolic dysfunction. 5. Pneumonia, possible compressive atelectasis. 6. Tobacco dependence syndrome, suspect chronic obstructive pulmonary disease. 7. Leukocytosis. RECOMMENDATIONS: 1. Start on Levaquin, continue albuterol and ipratropium nebulizer. Start on Brovana and budesonide nebulizer. 2. We will proceed with thoracentesis and start him on Lasix. 3. Follow up labs and chest radiographs. Dr. Hunter thank you for involving me in the care of Mr. Maria. TRANSINT:[id number] Voice Confirmation ID: [id number] DOCUMENT ID: [id number] SHAUN TOMLINSON MD CC: JEY HUNTER [id number] DICTATION DATE: 04/11/181700 WATER PUMPER: 04/12/18 0156 ADM IN [address] [place] [id number]
--- NOTE | ~2018-04-09 | EC ---
PATIENT:ELIE MAIRA DATE OF SERVICE: 04/09/18 SEX: M MEDICAL RECORD: [id number] DATE OF : 66 LOCATION:D.MS Head AGE OF PATIENT: 48 ADMISSION DATE: 04/09/18 REFERRING PHYSICIAN: INTERPRETING PHYSICIAN: PRERNA PABON MD ECHOCARDIOGRAM REPORT ECHO CHARGES 4 ECHO COMPLETE Date: 04/12 CLINICAL DIAGNOSIS: CHF,PLEURAL EFFUISON ECHOCARDIOGRAPHIC MEASUREMENTS (adult normal given) AC root (d.<3.7cm) 3.3 cm LV Septum d (<1.2 cm> 1.0 cm Valve Excursion 2.1 cm LV Septum (systole) 1.1 cm Left Atria (s.<4.0cm> 3.7 cm LVPW d(<1.2cm) 1.1 cm RV (d.<2.3cm) 3.0 cm LVPW (sytole) 1.6 cm LV diastole(<5.6CM) 5.8 cm MV E-F(>70mm/sec) cm LV systole 4.6 cm LVOT Diameter cm MV exc.(>10mm) cm Est.ejection fraction (50-75%) % DOPPLER: LVIT cm/sec A 112 cm/sec E 74.0 cm/sec LA cm/sec RVSP 20 mmHg LVOT 84 cm/sec AOP1/2T m/s Asc. Ao 131 cm/sec RVOT 80 cm/sec RA cm/sec PA 100 cm/sec AV Gradient Peak 6.86 mmHg AV Mean 3.64 mmHg AV Area 1.9 cm MV Gradient Peak 6.02 mmHg MV Mean 2.31 mmHg MV Area cm COMMENTS: Blast Furnace Checker: Walter FERGUSON Cover Operator: 1 Dr. Pabon TAPE# PACS Pericardial Effusion Y DATE OF SERVICE: 04/12/2018 PROCEDURE: Echocardiogram. FINDINGS: 1. Left ventricular chamber size is mildly dilated. Left ventricular systolic function is mild to moderately reduced, overall ejection fraction 35% to 40%. 2. Left atrium is within normal limits at 3.7 cm. Right atrium and right ventricle chamber sizes are mildly dilated. 3. Valvular structures have normal structure and motion. ECHOCARDIOGRAM REPORT [id number] ELIE MARIA 4. Doppler interrogation reveals mild mitral regurgitation, trace tricuspid regurgitation, no other valvular insufficiency or stenosis. Pulmonary systolic pressure is estimated at 20 mmHg. 5. No evidence of pericardial effusion or left ventricular thrombus. TRANSINT:[id number] Voice Confirmation ID: [id number] DOCUMENT ID: [id number] PRERNA PABON MD at 1445 CC: [id number] DICTATION DATE: 04/12/18 1130 SPREADER OPERATOR: 04/12/18 1502 ADM IN [facility] [address] [place] [id number]
--- NOTE | ~2018-04-09 | EC ---
PATIENT:ELIE MARIA DATE OF SERVICE: 04/09/18 SEX: M MEDICAL RECORD: [id number] DATE OF : 66 LOCATION:D.MS Head AGE OF PATIENT: 48 ADMISSION DATE: 04/09/18 REFERRING PHYSICIAN: INTERPRETING PHYSICIAN: LUKE TARANGO MD ECHOCARDIOGRAM REPORT ECHO CHARGES 7 ECHO w/CONTRAST Date: 04/16 CLINICAL DIAGNOSIS: CHF ECHOCARDIOGRAPHIC MEASUREMENTS (adult normal given) AC root (d.<3.7cm) 0 cm LV Septum d (<1.2 cm> 0 cm Valve Excursion 0 cm LV Septum (systole) 0 cm Left Atria (s.<4.0cm> 0 cm LVPW d(<1.2cm) 0 cm RV (d.<2.3cm) 0 cm LVPW (sytole) 0 cm LV diastole(<5.6CM) 0 cm MV E-F(>70mm/sec) 0 cm LV systole 0 cm LVOT Diameter 0 cm MV exc.(>10mm) 0 cm Est.ejection fraction (50-75%) 0 % DOPPLER: LVIT 0 cm/sec A 0 cm/sec E 0 cm/sec LA 0 cm/sec RVSP 0 mmHg LVOT 0 cm/sec AOP1/2T 0 m/s Asc. Ao 0 cm/sec RVOT 0 cm/sec RA 0 cm/sec PA 0 cm/sec AV Gradient Peak 0 mmHg AV Mean 0 mmHg AV Area 0 cm MV Gradient Peak 0 mmHg MV Mean 0 mmHg MV Area 0 cm COMMENTS: LIMITED ECHO WITH CONTRAST Drafter Mechanical: Oni OROZCOOE Media Director: 4 Dr. Tarango TAPE# PACS Pericardial Effusion Y DATE OF SERVICE: The patient had a contrast enhanced echocardiogram limited to her LV function. There is regional wall motion abnormalities demonstrated. The anterior and anterior septal wall is hypokinetic. There is dilatation of the left ventricular structure. There is hyperdynamic function in the lateral wall. Overall, ejection fraction appears to be 20% to 25%. TRANSINT:[id number] Voice Confirmation ID: [id number] DOCUMENT ID: [id number] ECHOCARDIOGRAM REPORT [id number] ELIE MARIA LUKE TARANGO MD at 3721 CC: [id number] DICTATION DATE: 04/17/18 0654 TELEMEDICINE PHYSICIAN: 04/17/18 1330 DIS IN 04/18/18 [place] [id number] [facility]
[~2018-04-09 12:02] MED LIST changes: -K-DUR20 MEQ PO; -LASIX40 MG PO; -PROTONIX I40 MG/VIAL IV; -QUESTRAN PACK4 G/PKT PO
[2018-04-09 14:12] LABS: BASOPHILS 0.6 % (0-2); HEMATOCRIT 34.1 % (42.0-54.0); HEMOGLOBIN 11.5 g/dL (13.5-17.5); IMMATURE GRANULOCYTES 0.3 % (0-5); LYMPHOCYTES 13.1 % (15-50); MCH 31.8 pg (26.0-34.0); MCHC 33.7 g/dL (31.0-37.0); MCV 94.2 fL (80.0-100.0); MEAN PLATELET VOLUME 8.5 fL (7.4-10.4); MONOCYTES 7.4 % (2-11); NEUTROPHILS 76.6 % (40-80); PLATELET COUNT 443 10x3/uL (130-400); RBC 3.62 10x6/uL (4.20-6.10); RDW 15.3 % (11.5-14.5); WBC 10.7 10x3/uL (4.8-10.8)
[2018-04-09 14:21] LABS: ALBUMIN 1.5 g/dL (3.4-5.0); ALKALINE PHOSPHATASE 111 U/L (46-116); ALT (SGPT) 9 U/L (10-68); BILIRUBIN - TOTAL 0.25 mg/dL (0.2-1.3); CALC OSMOLALITY 287 mosm/kg (275-300); CALCIUM 8.1 mg/dL (8.5-10.1); CARBON DIOXIDE 31.5 mmol/L (21.0-32.0); CHLORIDE - SERUM 101 mmol/L (98-107); CREATININE - SERUM 0.5 mg/dL (0.6-1.3); POTASSIUM - SERUM 3.5 mmol/L (3.5-5.1); PROTEIN - SERUM 6.3 g/dL (6.4-8.2); SODIUM 138 mmol/L (136-145); UREA NITROGEN 8 mg/dL (7-18); eGFR NON AFRICAN AMERICAN > 90 mL/min (90-120)
[2018-04-09 14:22] LABS: GLUCOSE 345 mg/dL (74-106)
[2018-04-09 14:27] LABS: PRO BNP 3482 pg/mL (0-125)
[2018-04-09 21:51] VITALS: BP 130/90
[2018-04-10 01:43] VITALS: BP 133/93
[2018-04-10 07:41] VITALS: BMI 17.7
[2018-04-10 07:48] LABS: BASOPHILS 0.4 % (0-2); EOSINOPHILS 2.5 % (0-7); HEMATOCRIT 36.6 % (42.0-54.0); HEMOGLOBIN 12.2 g/dL (13.5-17.5); IMMATURE GRANULOCYTES 0.2 % (0-5); LYMPHOCYTES 15.7 % (15-50); MCH 31.4 pg (26.0-34.0); MCHC 33.3 g/dL (31.0-37.0); MCV 94.1 fL (80.0-100.0); MEAN PLATELET VOLUME 8.6 fL (7.4-10.4); MONOCYTES 7.6 % (2-11); NEUTROPHILS 73.6 % (40-80); PLATELET COUNT 450 10x3/uL (130-400); RBC 3.89 10x6/uL (4.20-6.10); RDW 15.4 % (11.5-14.5); WBC 11.8 10x3/uL (4.8-10.8)
[2018-04-10 08:03] LABS: CALC OSMOLALITY 283 mosm/kg (275-300); CARBON DIOXIDE 33.3 mmol/L (21.0-32.0); CHLORIDE - SERUM 101 mmol/L (98-107); CREATININE - SERUM 0.5 mg/dL (0.6-1.3); POTASSIUM - SERUM 3.4 mmol/L (3.5-5.1); SODIUM 140 mmol/L (136-145); UREA NITROGEN 7 mg/dL (7-18); eGFR NON AFRICAN AMERICAN > 90 mL/min (90-120)
[2018-04-10 08:09] LABS: GLUCOSE 230 mg/dL (74-106)
[2018-04-10 15:25] VITALS: Ht 175.3 cm; Wt 65.0 kg
[2018-04-10 22:24] VITALS: BP 92/57
[2018-04-11 06:01] VITALS: BP 122/81
[2018-04-11 08:24] VITALS: BP 128/84
[2018-04-11 11:07] LABS: BASOPHILS 0.4 % (0-2); EOSINOPHILS 3.1 % (0-7); HEMATOCRIT 30.6 % (42.0-54.0); IMMATURE GRANULOCYTES 0.2 % (0-5); LYMPHOCYTES 14.8 % (15-50); MCH 31.1 pg (26.0-34.0); MCHC 32.7 g/dL (31.0-37.0); MEAN PLATELET VOLUME 8.4 fL (7.4-10.4); MONOCYTES 8.8 % (2-11); NEUTROPHILS 72.7 % (40-80); PLATELET COUNT 382 10x3/uL (130-400); RBC 3.22 10x6/uL (4.20-6.10); RDW 15.4 % (11.5-14.5); WBC 11.2 10x3/uL (4.8-10.8)
[2018-04-11 11:15] LABS: ALBUMIN 1.2 g/dL (3.4-5.0); ALKALINE PHOSPHATASE 102 U/L (46-116); ALT (SGPT) 9 U/L (10-68); BILIRUBIN - TOTAL 0.28 mg/dL (0.2-1.3); CALC OSMOLALITY 285 mosm/kg (275-300); CALCIUM 7.6 mg/dL (8.5-10.1); CHLORIDE - SERUM 103 mmol/L (98-107); CREATININE - SERUM 0.5 mg/dL (0.6-1.3); GLUCOSE 258 mg/dL (74-106); POTASSIUM - SERUM 3.5 mmol/L (3.5-5.1); PROTEIN - SERUM 5.6 g/dL (6.4-8.2); SODIUM 140 mmol/L (136-145); UREA NITROGEN 8 mg/dL (7-18); eGFR NON AFRICAN AMERICAN > 90 mL/min (90-120)
[2018-04-11 12:02] VITALS: BP 131/82
[2018-04-11 16:29] VITALS: BP 106/67
[2018-04-11 21:54] VITALS: BP 95/58
[2018-04-12] VITALS (15 sets, daily range): BP systolic 94–169; BP diastolic 53–109
[2018-04-12 07:08] LABS: BASOPHILS 0.3 % (0-2); EOSINOPHILS 3.9 % (0-7); HEMATOCRIT 31.7 % (42.0-54.0); HEMOGLOBIN 10.3 g/dL (13.5-17.5); IMMATURE GRANULOCYTES 0.2 % (0-5); LYMPHOCYTES 18.9 % (15-50); MCH 31.1 pg (26.0-34.0); MCHC 32.5 g/dL (31.0-37.0); MCV 95.8 fL (80.0-100.0); MEAN PLATELET VOLUME 8.2 fL (7.4-10.4); NEUTROPHILS 66.7 % (40-80); PLATELET COUNT 340 10x3/uL (130-400); RBC 3.31 10x6/uL (4.20-6.10); RDW 15.5 % (11.5-14.5); WBC 12.4 10x3/uL (4.8-10.8)
[2018-04-12 07:25] LABS: ALBUMIN 1.3 g/dL (3.4-5.0); ALKALINE PHOSPHATASE 100 U/L (46-116); ALT (SGPT) 9 U/L (10-68); BILIRUBIN - TOTAL 0.25 mg/dL (0.2-1.3); CALC OSMOLALITY 282 mosm/kg (275-300); CALCIUM 7.6 mg/dL (8.5-10.1); CARBON DIOXIDE 34.3 mmol/L (21.0-32.0); CHLORIDE - SERUM 105 mmol/L (98-107); CREATININE - SERUM 0.5 mg/dL (0.6-1.3); POTASSIUM - SERUM 3.2 mmol/L (3.5-5.1); PROTEIN - SERUM 5.8 g/dL (6.4-8.2); SODIUM 143 mmol/L (136-145); UREA NITROGEN 10 mg/dL (7-18); eGFR NON AFRICAN AMERICAN > 90 mL/min (90-120)
[2018-04-12 07:33] LABS: GLUCOSE 89 mg/dL (74-106)
[2018-04-12 08:00] LABS: INR 1.01 (0.85-1.17); PROTIME 12.9 SECONDS (11.6-15.0)
[2018-04-12 08:01] LABS: APTT 37.2 SECONDS (22.8-39.4)
[2018-04-12 09:47] LABS: MAGNESIUM - SERUM 1.6 mg/dL (1.8-2.4); PHOSPHOROUS 3.4 mg/dL (2.5-4.9)
[2018-04-12 10:10] LABS: PROTEIN - BODY FLUID 1.4 G/DL
[2018-04-12 10:37] LABS: EOS BF 3 %; MACROPHAGES BF 38 %; MESOTHELIALS BF 11 %; NEUT - BF 18 %
[2018-04-13] VITALS (12 sets, daily range): BP systolic 99–125; BP diastolic 58–83
[2018-04-13 06:53] LABS: BASOPHILS 0.6 % (0-2); EOSINOPHILS 2.8 % (0-7); HEMATOCRIT 31.5 % (42.0-54.0); HEMOGLOBIN 10.2 g/dL (13.5-17.5); IMMATURE GRANULOCYTES 0.3 % (0-5); LYMPHOCYTES 17.8 % (15-50); MCH 30.7 pg (26.0-34.0); MCHC 32.4 g/dL (31.0-37.0); MCV 94.9 fL (80.0-100.0); MEAN PLATELET VOLUME 8.4 fL (7.4-10.4); MONOCYTES 9.7 % (2-11); NEUTROPHILS 68.8 % (40-80); PLATELET COUNT 338 10x3/uL (130-400); RBC 3.32 10x6/uL (4.20-6.10); RDW 15.1 % (11.5-14.5); WBC 11.6 10x3/uL (4.8-10.8)
[2018-04-13 07:25] LABS: INR 1.08 (0.85-1.17); PROTIME 13.6 SECONDS (11.6-15.0)
[2018-04-13 07:46] LABS: ALBUMIN 1.1 g/dL (3.4-5.0); ALKALINE PHOSPHATASE 87 U/L (46-116); ALT (SGPT) 7 U/L (10-68); CALC OSMOLALITY 280 mosm/kg (275-300); CALCIUM 7.5 mg/dL (8.5-10.1); CARBON DIOXIDE 33.3 mmol/L (21.0-32.0); CHLORIDE - SERUM 106 mmol/L (98-107); CREATININE - SERUM 0.4 mg/dL (0.6-1.3); GLUCOSE 63 mg/dL (74-106); POTASSIUM - SERUM 3.1 mmol/L (3.5-5.1); PROTEIN - SERUM 5.3 g/dL (6.4-8.2); SODIUM 142 mmol/L (136-145); UREA NITROGEN 12 mg/dL (7-18); eGFR NON AFRICAN AMERICAN > 90 mL/min (90-120)
[2018-04-13 11:58] LABS: PROTEIN - BODY FLUID 2.3 G/DL
[2018-04-13 13:48] LABS: EOS BF 1 %; MACROPHAGES BF 20 %; MESOTHELIALS BF 5 %; NEUT - BF 63 %
[2018-04-13 14:25] LABS: ACID FAST SMEAR Negative (()); AFB SPECIMEN PROCESSING Not Indicated (())
[2018-04-14 01:03] VITALS: BP 96/57
[2018-04-14 05:33] VITALS: BP 103/63
[2018-04-14 05:35] LABS: BASOPHILS 0.6 % (0-2); EOSINOPHILS 4.1 % (0-7); HEMATOCRIT 30.3 % (42.0-54.0); HEMOGLOBIN 9.7 g/dL (13.5-17.5); IMMATURE GRANULOCYTES 0.3 % (0-5); LYMPHOCYTES 16.5 % (15-50); MCH 30.7 pg (26.0-34.0); MCV 95.9 fL (80.0-100.0); MEAN PLATELET VOLUME 8.9 fL (7.4-10.4); MONOCYTES 10.9 % (2-11); NEUTROPHILS 67.6 % (40-80); PLATELET COUNT 348 10x3/uL (130-400); RBC 3.16 10x6/uL (4.20-6.10); RDW 14.7 % (11.5-14.5); WBC 11.7 10x3/uL (4.8-10.8)
[2018-04-14 06:03] LABS: ALBUMIN 1.1 g/dL (3.4-5.0); ALKALINE PHOSPHATASE 84 U/L (46-116); ALT (SGPT) 7 U/L (10-68); BILIRUBIN - TOTAL 0.28 mg/dL (0.2-1.3); CALCIUM 7.8 mg/dL (8.5-10.1); CARBON DIOXIDE 32.6 mmol/L (21.0-32.0); CHLORIDE - SERUM 104 mmol/L (98-107); CREATININE - SERUM 0.5 mg/dL (0.6-1.3); PROTEIN - SERUM 5.5 g/dL (6.4-8.2); SODIUM 142 mmol/L (136-145); eGFR NON AFRICAN AMERICAN > 90 mL/min (90-120)
[2018-04-14 06:04] LABS: CALC OSMOLALITY 287 mosm/kg (275-300); GLUCOSE 166 mg/dL (74-106); POTASSIUM - SERUM 3.7 mmol/L (3.5-5.1); UREA NITROGEN 16 mg/dL (7-18)
[2018-04-14 09:10] VITALS: BP 105/64
[2018-04-14 13:25] VITALS: BP 101/63
[2018-04-14 17:10] VITALS: BP 103/61
[2018-04-14 19:08] LABS: ACID FAST SMEAR Negative (()); AFB SPECIMEN PROCESSING Concentration (())
[2018-04-14 20:00] VITALS: BP 123/79
[2018-04-15] VITALS: BP 101/55
[2018-04-15 04:00] VITALS: BP 103/60
[2018-04-15 04:56] LABS: BASOPHILS 0.4 % (0-2); EOSINOPHILS 5.6 % (0-7); HEMATOCRIT 31.2 % (42.0-54.0); HEMOGLOBIN 9.9 g/dL (13.5-17.5); IMMATURE GRANULOCYTES 0.2 % (0-5); LYMPHOCYTES 13.9 % (15-50); MCH 30.4 pg (26.0-34.0); MCHC 31.7 g/dL (31.0-37.0); MCV 95.7 fL (80.0-100.0); MEAN PLATELET VOLUME 8.7 fL (7.4-10.4); MONOCYTES 8.1 % (2-11); NEUTROPHILS 71.8 % (40-80); PLATELET COUNT 324 10x3/uL (130-400); RBC 3.26 10x6/uL (4.20-6.10); RDW 14.4 % (11.5-14.5); WBC 11.1 10x3/uL (4.8-10.8)
[2018-04-15 06:10] LABS: ALBUMIN 1.1 g/dL (3.4-5.0); ALKALINE PHOSPHATASE 91 U/L (46-116); ALT (SGPT) 8 U/L (10-68); BILIRUBIN - TOTAL 0.14 mg/dL (0.2-1.3); CALC OSMOLALITY 284 mosm/kg (275-300); CALCIUM 7.6 mg/dL (8.5-10.1); CHLORIDE - SERUM 103 mmol/L (98-107); CREATININE - SERUM 0.4 mg/dL (0.6-1.3); GLUCOSE 195 mg/dL (74-106); POTASSIUM - SERUM 4.2 mmol/L (3.5-5.1); PROTEIN - SERUM 4.9 g/dL (6.4-8.2); SODIUM 140 mmol/L (136-145); UREA NITROGEN 16 mg/dL (7-18); eGFR NON AFRICAN AMERICAN > 90 mL/min (90-120)
[2018-04-15 09:15] VITALS: BP 105/69
[2018-04-15 11:33] VITALS: BP 101/63
[2018-04-15 22:40] VITALS: BP 99/65
[2018-04-16 05:32] LABS: BASOPHILS 0.4 % (0-2); EOSINOPHILS 6.1 % (0-7); HEMATOCRIT 28.6 % (42.0-54.0); HEMOGLOBIN 9.3 g/dL (13.5-17.5); IMMATURE GRANULOCYTES 0.3 % (0-5); LYMPHOCYTES 15.5 % (15-50); MCH 30.8 pg (26.0-34.0); MCHC 32.5 g/dL (31.0-37.0); MCV 94.7 fL (80.0-100.0); MEAN PLATELET VOLUME 8.7 fL (7.4-10.4); MONOCYTES 7.9 % (2-11); NEUTROPHILS 69.8 % (40-80); PLATELET COUNT 334 10x3/uL (130-400); RBC 3.02 10x6/uL (4.20-6.10); RDW 14.1 % (11.5-14.5); WBC 11.1 10x3/uL (4.8-10.8)
[2018-04-16 05:48] LABS: ALBUMIN 1.1 g/dL (3.4-5.0); ALKALINE PHOSPHATASE 96 U/L (46-116); BILIRUBIN - TOTAL 0.27 mg/dL (0.2-1.3); CALCIUM 7.8 mg/dL (8.5-10.1); CARBON DIOXIDE 30.9 mmol/L (21.0-32.0); CHLORIDE - SERUM 103 mmol/L (98-107); POTASSIUM - SERUM 3.9 mmol/L (3.5-5.1); PROTEIN - SERUM 5.5 g/dL (6.4-8.2); SODIUM 139 mmol/L (136-145); UREA NITROGEN 16 mg/dL (7-18)
[2018-04-16 05:52] LABS: ALT (SGPT) 13 U/L (10-68); CALC OSMOLALITY 296 mosm/kg (275-300); CREATININE - SERUM 0.6 mg/dL (0.6-1.3); GLUCOSE 429 mg/dL (74-106); eGFR NON AFRICAN AMERICAN > 90 mL/min (90-120)
[2018-04-16 08:23] VITALS: BP 111/63
[2018-04-16 12:09] VITALS: BP 110/63
[2018-04-16 14:18] LABS: FUNGUS STAIN Final report (())
[2018-04-16 16:49] VITALS: BP 104/62
[2018-04-16 20:20] VITALS: BP 92/63
[2018-04-17 01:02] VITALS: BP 101/64
[2018-04-17 04:22] VITALS: BP 106/63
[2018-04-17 04:57] LABS: BASOPHILS 0.5 % (0-2); HEMATOCRIT 27.6 % (42.0-54.0); HEMOGLOBIN 9.1 g/dL (13.5-17.5); IMMATURE GRANULOCYTES 0.4 % (0-5); LYMPHOCYTES 14.8 % (15-50); MCH 30.8 pg (26.0-34.0); MCV 93.6 fL (80.0-100.0); MEAN PLATELET VOLUME 8.7 fL (7.4-10.4); MONOCYTES 8.4 % (2-11); NEUTROPHILS 68.9 % (40-80); PLATELET COUNT 353 10x3/uL (130-400); RBC 2.95 10x6/uL (4.20-6.10); RDW 14.1 % (11.5-14.5); WBC 11.6 10x3/uL (4.8-10.8)
[2018-04-17 05:15] LABS: ALBUMIN 1.1 g/dL (3.4-5.0); ALKALINE PHOSPHATASE 86 U/L (46-116); CALCIUM 7.5 mg/dL (8.5-10.1); CARBON DIOXIDE 31.6 mmol/L (21.0-32.0); CHLORIDE - SERUM 105 mmol/L (98-107); CREATININE - SERUM 0.7 mg/dL (0.6-1.3); POTASSIUM - SERUM 3.4 mmol/L (3.5-5.1); PROTEIN - SERUM 5.4 g/dL (6.4-8.2); SODIUM 142 mmol/L (136-145); UREA NITROGEN 14 mg/dL (7-18); eGFR NON AFRICAN AMERICAN > 90 mL/min (90-120)
[2018-04-17 05:18] LABS: ALT (SGPT) 7 U/L (10-68); CALC OSMOLALITY 292 mosm/kg (275-300); GLUCOSE 256 mg/dL (74-106)
[2018-04-17 07:00] VITALS: BP 105/68
[2018-04-17 12:25] VITALS: BP 112/74
[2018-04-17 20:53] VITALS: BP 103/62
[2018-04-18 01:13] VITALS: BP 124/64
[2018-04-18 04:45] VITALS: BP 116/62
[2018-04-18 06:18] LABS: BASOPHILS 0.6 % (0-2); EOSINOPHILS 6.6 % (0-7); HEMOGLOBIN 8.9 g/dL (13.5-17.5); IMMATURE GRANULOCYTES 0.3 % (0-5); LYMPHOCYTES 15.6 % (15-50); MCH 30.2 pg (26.0-34.0); MCHC 31.8 g/dL (31.0-37.0); MCV 94.9 fL (80.0-100.0); MEAN PLATELET VOLUME 8.8 fL (7.4-10.4); MONOCYTES 9.5 % (2-11); NEUTROPHILS 67.4 % (40-80); PLATELET COUNT 362 10x3/uL (130-400); RBC 2.95 10x6/uL (4.20-6.10); RDW 14.3 % (11.5-14.5); WBC 12.2 10x3/uL (4.8-10.8)
[2018-04-18 06:33] LABS: ALBUMIN 1.2 g/dL (3.4-5.0); ALKALINE PHOSPHATASE 91 U/L (46-116); BILIRUBIN - TOTAL 0.14 mg/dL (0.2-1.3); CALCIUM 7.5 mg/dL (8.5-10.1); CARBON DIOXIDE 31.2 mmol/L (21.0-32.0); CHLORIDE - SERUM 105 mmol/L (98-107); POTASSIUM - SERUM 3.6 mmol/L (3.5-5.1); PROTEIN - SERUM 5.1 g/dL (6.4-8.2); SODIUM 142 mmol/L (136-145); UREA NITROGEN 13 mg/dL (7-18)
[2018-04-18 06:40] LABS: ALT (SGPT) 10 U/L (10-68); CALC OSMOLALITY 288 mosm/kg (275-300); CREATININE - SERUM 0.5 mg/dL (0.6-1.3); GLUCOSE 201 mg/dL (74-106); eGFR NON AFRICAN AMERICAN > 90 mL/min (90-120)
[2018-04-18 07:43] VITALS: BP 95/60
[2018-04-18] MEDS ORDERED: LASIX40 MG PO (12:29)
[2018-04-18] MEDS ORDERED: QUESTRAN PACK4 G/PKT PO (12:30)
[2018-04-18] MEDS ORDERED: PROTONIX I40 MG/VIAL IV (12:31)
[2018-04-18] MEDS ORDERED: K-DUR20 MEQ PO (12:31)
[2018-04-18 13:19] LABS: FUNGUS STAIN Final report (())
[2018-04-19 17:12] LABS: FUNGUS MYCOLOGY CULTURE Preliminary report (())
[2018-04-20 12:17] LABS: FUNGUS MYCOLOGY CULTURE Preliminary report (())
[2018-04-27 18:10] LABS: OVA + PARASITE EXAM Final report (())
== END 2018-04-18 15:00 | disposition home health service (06) | DRG 291 ==
LOC: D.ER 12:02 → D.EDHOLD 15:50 → D.MS 15:50 → D.EDHOLD 20:58 → D.MS 04-10 14:25 → D.EDHOLD 04-10 14:41 → D.MS 04-10 15:20
PROVIDERS: Emergency Medicine; Family Medicine; General Practice; Internal Medicine Pulmonary Disease; Physician Assistant; Specialist
PROC: 0W993ZZ Drainage of Right Pleural Cavity, Percutaneous Approach (ICD-10-PCS; principal; 2018-04-11)
PROC: 0W9930Z Drainage of Right Pleural Cavity with Drainage Device, Percutaneous Approach (ICD-10-PCS; 2018-04-13)
DX: I50.21 Acute systolic (congestive) heart failure (principal); J18.1 Lobar pneumonia, unspecified organism; J96.01 Acute respiratory failure with hypoxia; E43 Unspecified severe protein-calorie malnutrition; E87.1 Hypo-osmolality and hyponatremia; F17.203 Nicotine dependence unspecified, with withdrawal; Z68.1 Body mass index [BMI] 19.9 or less, adult; E11.65 Type 2 diabetes mellitus with hyperglycemia; Z79.4 Long term (current) use of insulin; E87.6 Hypokalemia; Z89.511 Acquired absence of right leg below knee; E11.21 Type 2 diabetes mellitus with diabetic nephropathy; Z91.19 Patient's noncompliance with other medical treatment and regimen

== ENCOUNTER → 2018-04-24 17:00 | Outpatient (CLI) | payer MEDICAID ==
[2018-04-10 15:25] VITALS: BMI 17.7
[~2018-04-24 17:00] MED LIST changes: +FLAGYL500 MG PO; +K-DUR20 MEQ PO; +LASIX40 MG PO; +NICODERM C1 PATCH .1 TRANSDERM; +PROTONIX I40 MG/VIAL IV; +QUESTRAN PACK4 G/PKT PO
[2018-04-24 17:30] LABS: BASOPHILS 0.4 % (0-2); EOSINOPHILS 2.9 % (0-7); HEMOGLOBIN 9.4 g/dL (13.5-17.5); IMMATURE GRANULOCYTES 0.4 % (0-5); LYMPHOCYTES 11.2 % (15-50); MCH 30.6 pg (26.0-34.0); MCHC 31.3 g/dL (31.0-37.0); MCV 97.7 fL (80.0-100.0); MEAN PLATELET VOLUME 9.3 fL (7.4-10.4); MONOCYTES 6.4 % (2-11); NEUTROPHILS 78.7 % (40-80); RBC 3.07 10x6/uL (4.20-6.10); RDW 14.1 % (11.5-14.5); WBC 16.9 10x3/uL (4.8-10.8)
[2018-04-24 17:31] LABS: PLATELET COUNT 593 10x3/uL (130-400)
[2018-04-24 17:46] LABS: CREATININE - SERUM 0.6 mg/dL (0.6-1.3)
[2018-04-24 18:36] LABS: ERYTHROCYTE SEDIMENTATION RATE 1 mm/hr (0-20)
== END | disposition home or self-care (01) ==
LOC: D.LABREF 17:00
PROVIDERS: Surgery
DX: M86.8X6 Other osteomyelitis, lower leg (principal)

== ENCOUNTER → 2018-04-30 16:41 | Outpatient (CLI) | payer MEDICAID ==
[2018-04-10 15:25] VITALS: BMI 17.7
[2018-04-30 16:53] LABS: BASOPHILS 0.4 % (0-2); EOSINOPHILS 4.8 % (0-7); HEMATOCRIT 31.5 % (42.0-54.0); HEMOGLOBIN 9.8 g/dL (13.5-17.5); IMMATURE GRANULOCYTES 0.6 % (0-5); MCH 30.2 pg (26.0-34.0); MCHC 31.1 g/dL (31.0-37.0); MCV 96.9 fL (80.0-100.0); MEAN PLATELET VOLUME 8.9 fL (7.4-10.4); MONOCYTES 6.8 % (2-11); NEUTROPHILS 72.4 % (40-80); PLATELET COUNT 596 10x3/uL (130-400); RBC 3.25 10x6/uL (4.20-6.10); RDW 15.3 % (11.5-14.5); WBC 14.1 10x3/uL (4.8-10.8)
[2018-04-30 17:32] LABS: CREATININE - SERUM 0.6 mg/dL (0.6-1.3)
[2018-04-30 17:41] LABS: C-REACTIVE PROTEIN 21.1 mg/dL (0.0-0.9)
[2018-04-30 18:09] LABS: ERYTHROCYTE SEDIMENTATION RATE 49 mm/hr (0-20)
== END | disposition home or self-care (01) ==
LOC: D.LABREF 16:41
PROVIDERS: Student in an Organized Health Care Education/Training Program
DX: M86.8X6 Other osteomyelitis, lower leg (principal)

== ENCOUNTER 2018-05-08 12:16 | Inpatient (IN) | payer MEDICAID ==
[~2018-05-08] VITALS: Ht 175.3 cm; Wt 68.0 kg
--- NOTE | ~2018-05-08 | CN ---
PATIENT NAME:ELIE MARIA MEDICAL RECORD: [id number] : 66 LOCATION:D.MS Fleming2240 ADMIT DATE: 05/08/18 ACCOUNT: [id number] CONSULTING PHYSICIAN: SHAUN TOMLINSON MD REFERRING PHYSICIAN: VERA GARCIA MD DATE OF CONSULTATION: 05/08/2018 CONSULT REQUESTING PHYSICIAN: Vera Garcia MD REASON FOR CONSULTATION: Bilateral pneumonia, pleural effusion. HISTORY OF PRESENT ILLNESS: Mr. Merida is a 48-year-old gentleman who was just discharged from hospital a couple of weeks ago when he was admitted with bilateral pleural effusion, congestive heart failure, and generalized anasarca. The patient was seen by the home visiting team today, found out the patient has fever, diaphoretic, and he has cellulitis and ulcer of the left heel as well as sacral area pressure sore. The patient denies any coughing. There are no significant sputum production. Chest radiograph showed he has bilateral pneumonia and left pleural effusion. REVIEW OF SYSTEMS: Mainly in the history of present illness. PAST MEDICAL HISTORY: 1. Diabetes mellitus. 2. Pneumonia. 3. Congestive heart failure. PAST SURGICAL HISTORY: 1. He has amputation below-knee of the right lower extremity. 2. Thumb infection surgery. ALLERGIES: No known drug allergy. PRESENT MEDICATIONS: Conecte Link is reviewed. PERSONAL AND SOCIAL HISTORY: The patient is a nondrinker, nonsmoker. FAMILY HISTORY: None known. PHYSICAL EXAMINATION: GENERAL: Now, the patient is lying comfortably in bed. He is not in acute distress. VITAL SIGNS: The blood pressure 122/64, pulse is 121, respiration 19, temperature 98.6, SpO2 97% on room air. HEENT: Conjunctivae are pink. Sclerae are not icteric. NECK: Supple, no JVD. CHEST: There are bilateral crackles. No wheezing. HEART: Rhythm regular, normal sound, no murmur. ABDOMEN: Soft, bowel sounds present. No hepatosplenomegaly. RECTAL: Deferred. EXTREMITIES: There is cellulitis and sore on the left heel. CHEST RADIOGRAPH: There is bilateral infiltrate. There is small left pleural effusion. There is right lower lobe airspace consolidation. There is a lingular infiltrate. CONSULT REPORT [id number] ELIE MARIA OTHER LABORATORY DATA: CBC: WBC 16,000, hemoglobin 10.6, hematocrit 32.7, and platelet count is 491. Chemistry: Sodium is 137, potassium 3.9, chloride 103, bicarb is 27.8, BUN is 6, creatinine 0.6. Glucose 471. IMPRESSION: 1. Bilateral pneumonia, most likely hospital-acquired pneumonia with the patient recent hospitalization. 2. Leukocytosis secondary to pneumonia and cellulitis. There was cellulitis of the left heel and ulcer in the sacral area. 3. Fever and chills. 4. Left pleural effusion, possible parapneumonic, possible secondary to congestive heart failure. 5. Congestive heart failure with a chronic systolic dysfunction. The EF is 20% to 25%. RECOMMENDATION: 1. Continue the Merrem 1 gram IV q.12 hourly. 2. Start vancomycin 1 gram q.12 hourly, the pharmacy to dose. 3. Albuterol and ipratropium nebulizer. 4. Continue diuresis. Follow up labs and chest radiograph. Dr. Garcia, thank you for involving me in the care of Ms. Maria. TRANSINT:[id number] Voice Confirmation ID: [id number] DOCUMENT ID: [id number] SHAUN TOMLINSON MD at 1806 CC: VERA GARCIA [id number] DICTATION DATE: 05/08/18 1833 VP DATA: 05/08/18 1900 ADM IN [place] [id number] [place] [id number]
[~2018-05-08 12:16] MED LIST changes: -FLAGYL500 MG PO; -NICODERM C1 PATCH .1 TRANSDERM
[2018-05-08 13:08] LABS: BASOPHILS 0.6 % (0-2); EOSINOPHILS 3.6 % (0-7); HEMATOCRIT 32.7 % (42.0-54.0); HEMOGLOBIN 10.6 g/dL (13.5-17.5); IMMATURE GRANULOCYTES 0.3 % (0-5); LYMPHOCYTES 13.7 % (15-50); MCH 30.7 pg (26.0-34.0); MCHC 32.4 g/dL (31.0-37.0); MCV 94.8 fL (80.0-100.0); MEAN PLATELET VOLUME 8.5 fL (7.4-10.4); MONOCYTES 7.1 % (2-11); NEUTROPHILS 74.7 % (40-80); PLATELET COUNT 491 10x3/uL (130-400); RBC 3.45 10x6/uL (4.20-6.10); RDW 15.4 % (11.5-14.5)
[2018-05-08 13:17] LABS: INR 1.1 (0.85-1.17); PROTIME 13.8 SECONDS (11.6-15.0)
[2018-05-08 13:19] LABS: D-DIMER-QUANTITATIVE 1.09 ug/mLFEU (0.20-0.54)
[2018-05-08 13:45] LABS: ALBUMIN 1.1 g/dL (3.4-5.0); ALKALINE PHOSPHATASE 157 U/L (46-116); ALT (SGPT) 4 U/L (10-68); CALC OSMOLALITY 292 mosm/kg (275-300); CALCIUM 7.8 mg/dL (8.5-10.1); CARBON DIOXIDE 27.8 mmol/L (21.0-32.0); CHLORIDE - SERUM 103 mmol/L (98-107); CKMB 1.5 U/L (0.0-3.6); CREATINE KINASE 29 UL (21-232); CREATININE - SERUM 0.6 mg/dL (0.6-1.3); POTASSIUM - SERUM 3.9 mmol/L (3.5-5.1); PRO BNP 3833 pg/mL (0-125); PROTEIN - SERUM 5.7 g/dL (6.4-8.2); SODIUM 137 mmol/L (136-145); TROPONIN-I 0.037 ng/mL (0.000-0.060); UREA NITROGEN 6 mg/dL (7-18); eGFR NON AFRICAN AMERICAN > 90 mL/min (90-120)
[2018-05-08 13:53] LABS: GLUCOSE 471 mg/dL (74-106)
[2018-05-08 21:12] VITALS: BP 109/60
[2018-05-09] VITALS (7 sets, daily range): BP systolic 101–139; BP diastolic 41–69; Ht 175.3 cm; Wt 68.0 kg
[2018-05-09 04:52] LABS: BASOPHILS 0.6 % (0-2); EOSINOPHILS 6.9 % (0-7); HEMATOCRIT 30.2 % (42.0-54.0); HEMOGLOBIN 9.6 g/dL (13.5-17.5); IMMATURE GRANULOCYTES 0.2 % (0-5); MCH 29.7 pg (26.0-34.0); MCHC 31.8 g/dL (31.0-37.0); MCV 93.5 fL (80.0-100.0); MEAN PLATELET VOLUME 8.6 fL (7.4-10.4); MONOCYTES 8.4 % (2-11); NEUTROPHILS 63.9 % (40-80); PLATELET COUNT 534 10x3/uL (130-400); RBC 3.23 10x6/uL (4.20-6.10); RDW 15.4 % (11.5-14.5); WBC 12.3 10x3/uL (4.8-10.8)
[2018-05-09 05:07] LABS: ALKALINE PHOSPHATASE 128 U/L (46-116); ALT (SGPT) 4 U/L (10-68); CALC OSMOLALITY 284 mosm/kg (275-300); CALCIUM 7.3 mg/dL (8.5-10.1); CARBON DIOXIDE 27.4 mmol/L (21.0-32.0); CHLORIDE - SERUM 106 mmol/L (98-107); CREATININE - SERUM 0.5 mg/dL (0.6-1.3); POTASSIUM - SERUM 3.8 mmol/L (3.5-5.1); PROTEIN - SERUM 5.3 g/dL (6.4-8.2); SODIUM 140 mmol/L (136-145); UREA NITROGEN 6 mg/dL (7-18); eGFR NON AFRICAN AMERICAN > 90 mL/min (90-120)
[2018-05-09 05:10] LABS: GLUCOSE 240 mg/dL (74-106)
[2018-05-10 04:53] LABS: BASOPHILS 0.7 % (0-2); EOSINOPHILS 8.9 % (0-7); HEMATOCRIT 30.5 % (42.0-54.0); HEMOGLOBIN 9.7 g/dL (13.5-17.5); IMMATURE GRANULOCYTES 0.3 % (0-5); LYMPHOCYTES 24.6 % (15-50); MCH 29.8 pg (26.0-34.0); MCHC 31.8 g/dL (31.0-37.0); MCV 93.6 fL (80.0-100.0); MEAN PLATELET VOLUME 8.5 fL (7.4-10.4); MONOCYTES 9.7 % (2-11); NEUTROPHILS 55.8 % (40-80); PLATELET COUNT 495 10x3/uL (130-400); RBC 3.26 10x6/uL (4.20-6.10); RDW 15.3 % (11.5-14.5); WBC 11.9 10x3/uL (4.8-10.8)
[2018-05-10 04:55] VITALS: BP 88/50
[2018-05-10 05:23] LABS: ALKALINE PHOSPHATASE 119 U/L (46-116); ALT (SGPT) 4 U/L (10-68); CALCIUM 7.3 mg/dL (8.5-10.1); CARBON DIOXIDE 28.5 mmol/L (21.0-32.0); CHLORIDE - SERUM 107 mmol/L (98-107); CREATININE - SERUM 0.6 mg/dL (0.6-1.3); POTASSIUM - SERUM 3.3 mmol/L (3.5-5.1); PROTEIN - SERUM 5.3 g/dL (6.4-8.2); SODIUM 140 mmol/L (136-145); UREA NITROGEN 6 mg/dL (7-18); eGFR NON AFRICAN AMERICAN > 90 mL/min (90-120)
[2018-05-10 05:25] LABS: CALC OSMOLALITY 277 mosm/kg (275-300); GLUCOSE 124 mg/dL (74-106)
[2018-05-10 07:58] VITALS: BP 106/65
[2018-05-10 09:17] LABS: APPEARANCE CLEAR (CLEAR); BILIRUBIN NEGATIVE (NEGATIVE); COLOR YELLOW (YELLOW); GLUCOSE NEGATIVE (NEGATIVE); KETONE NEGATIVE (NEGATIVE); NITRITE NEGATIVE (NEGATIVE); PROTEIN NEGATIVE (NEGATIVE); UROBILINOGEN NORMAL (NORMAL)
[2018-05-10 12:21] VITALS: BP 109/68
[2018-05-10 15:55] VITALS: BP 99/58
[2018-05-10 20:00] VITALS: BP 99/62
[2018-05-11] VITALS: BP 122/74
[2018-05-11 04:00] VITALS: BP 94/54
[2018-05-11 05:30] LABS: BASOPHILS 0.7 % (0-2); EOSINOPHILS 8.3 % (0-7); HEMATOCRIT 29.2 % (42.0-54.0); HEMOGLOBIN 9.3 g/dL (13.5-17.5); IMMATURE GRANULOCYTES 0.2 % (0-5); LYMPHOCYTES 19.5 % (15-50); MCH 29.6 pg (26.0-34.0); MCHC 31.8 g/dL (31.0-37.0); MEAN PLATELET VOLUME 8.5 fL (7.4-10.4); MONOCYTES 11.5 % (2-11); NEUTROPHILS 59.8 % (40-80); PLATELET COUNT 453 10x3/uL (130-400); RBC 3.14 10x6/uL (4.20-6.10); RDW 15.4 % (11.5-14.5)
[2018-05-11 05:43] LABS: ALBUMIN 0.9 g/dL (3.4-5.0); ALKALINE PHOSPHATASE 114 U/L (46-116); BILIRUBIN - TOTAL 0.15 mg/dL (0.2-1.3); CALCIUM 7.5 mg/dL (8.5-10.1); CARBON DIOXIDE 29.3 mmol/L (21.0-32.0); CHLORIDE - SERUM 104 mmol/L (98-107); CREATININE - SERUM 0.6 mg/dL (0.6-1.3); GLUCOSE 155 mg/dL (74-106); PROTEIN - SERUM 5.1 g/dL (6.4-8.2); SODIUM 137 mmol/L (136-145); eGFR NON AFRICAN AMERICAN > 90 mL/min (90-120)
[2018-05-11 05:44] LABS: ALT (SGPT) 5 U/L (10-68); CALC OSMOLALITY 274 mosm/kg (275-300); POTASSIUM - SERUM 3.9 mmol/L (3.5-5.1); UREA NITROGEN 8 mg/dL (7-18)
[2018-05-11 08:58] VITALS: BP 115/70
[2018-05-11 16:46] VITALS: BP 95/58
[2018-05-11 20:00] VITALS: BP 91/49
[2018-05-12] VITALS: BP 95/49
[2018-05-12 04:00] VITALS: BP 80/51
[2018-05-12 06:38] LABS: BASOPHILS 0.9 % (0-2); HEMATOCRIT 28.6 % (42.0-54.0); HEMOGLOBIN 9.3 g/dL (13.5-17.5); IMMATURE GRANULOCYTES 0.3 % (0-5); LYMPHOCYTES 13.5 % (15-50); MCHC 32.5 g/dL (31.0-37.0); MCV 92.3 fL (80.0-100.0); MEAN PLATELET VOLUME 8.5 fL (7.4-10.4); MONOCYTES 10.4 % (2-11); NEUTROPHILS 63.9 % (40-80); PLATELET COUNT 424 10x3/uL (130-400); RDW 15.3 % (11.5-14.5); WBC 10.7 10x3/uL (4.8-10.8)
[2018-05-12 07:01] LABS: ALKALINE PHOSPHATASE 114 U/L (46-116); ALT (SGPT) 6 U/L (10-68); CALC OSMOLALITY 272 mosm/kg (275-300); CALCIUM 7.4 mg/dL (8.5-10.1); CARBON DIOXIDE 28.2 mmol/L (21.0-32.0); CHLORIDE - SERUM 101 mmol/L (98-107); CREATININE - SERUM 0.6 mg/dL (0.6-1.3); POTASSIUM - SERUM 4.2 mmol/L (3.5-5.1); PROTEIN - SERUM 4.9 g/dL (6.4-8.2); SODIUM 134 mmol/L (136-145); UREA NITROGEN 10 mg/dL (7-18); eGFR NON AFRICAN AMERICAN > 90 mL/min (90-120)
[2018-05-12 07:04] LABS: GLUCOSE 210 mg/dL (74-106)
[2018-05-12 08:45] VITALS: BP 88/49
[2018-05-12 12:30] VITALS: BP 102/60
[2018-05-12 16:45] VITALS: BP 107/52
[2018-05-12 20:00] VITALS: BP 98/58
[2018-05-13] VITALS: BP 92/49
[2018-05-13 04:00] VITALS: BP 96/51
[2018-05-13 06:41] LABS: BASOPHILS 1.2 % (0-2); EOSINOPHILS 10.6 % (0-7); HEMATOCRIT 28.4 % (42.0-54.0); HEMOGLOBIN 9.1 g/dL (13.5-17.5); IMMATURE GRANULOCYTES 0.3 % (0-5); LYMPHOCYTES 18.4 % (15-50); MCH 29.7 pg (26.0-34.0); MCV 92.8 fL (80.0-100.0); MEAN PLATELET VOLUME 8.3 fL (7.4-10.4); MONOCYTES 11.1 % (2-11); NEUTROPHILS 58.4 % (40-80); PLATELET COUNT 427 10x3/uL (130-400); RBC 3.06 10x6/uL (4.20-6.10); WBC 10.9 10x3/uL (4.8-10.8)
[2018-05-13 07:04] LABS: ALKALINE PHOSPHATASE 108 U/L (46-116); ALT (SGPT) 6 U/L (10-68); BILIRUBIN - TOTAL 0.19 mg/dL (0.2-1.3); CALC OSMOLALITY 273 mosm/kg (275-300); CALCIUM 7.4 mg/dL (8.5-10.1); CARBON DIOXIDE 28.2 mmol/L (21.0-32.0); CHLORIDE - SERUM 104 mmol/L (98-107); CREATININE - SERUM 0.6 mg/dL (0.6-1.3); GLUCOSE 117 mg/dL (74-106); POTASSIUM - SERUM 3.6 mmol/L (3.5-5.1); SODIUM 137 mmol/L (136-145); UREA NITROGEN 10 mg/dL (7-18); eGFR NON AFRICAN AMERICAN > 90 mL/min (90-120)
[2018-05-13 08:43] VITALS: BP 117/60
[2018-05-13 11:38] VITALS: BP 120/62
[2018-05-13 15:42] VITALS: BP 118/64
[2018-05-13 21:03] VITALS: BP 103/58
[2018-05-14 04:00] VITALS: BP 102/63
[2018-05-14 05:46] LABS: BASOPHILS 1.5 % (0-2); EOSINOPHILS 12.5 % (0-7); HEMATOCRIT 29.1 % (42.0-54.0); HEMOGLOBIN 9.3 g/dL (13.5-17.5); IMMATURE GRANULOCYTES 0.2 % (0-5); LYMPHOCYTES 24.9 % (15-50); MCH 29.6 pg (26.0-34.0); MCV 92.7 fL (80.0-100.0); MEAN PLATELET VOLUME 8.4 fL (7.4-10.4); MONOCYTES 9.7 % (2-11); NEUTROPHILS 51.2 % (40-80); PLATELET COUNT 441 10x3/uL (130-400); RBC 3.14 10x6/uL (4.20-6.10); RDW 14.9 % (11.5-14.5); WBC 8.9 10x3/uL (4.8-10.8)
[2018-05-14 06:14] LABS: ALKALINE PHOSPHATASE 113 U/L (46-116); BILIRUBIN - TOTAL 0.16 mg/dL (0.2-1.3); CALCIUM 7.4 mg/dL (8.5-10.1); CARBON DIOXIDE 32.2 mmol/L (21.0-32.0); CHLORIDE - SERUM 100 mmol/L (98-107); CREATININE - SERUM 0.7 mg/dL (0.6-1.3); POTASSIUM - SERUM 3.4 mmol/L (3.5-5.1); PROTEIN - SERUM 5.6 g/dL (6.4-8.2); SODIUM 137 mmol/L (136-145); UREA NITROGEN 10 mg/dL (7-18); eGFR NON AFRICAN AMERICAN > 90 mL/min (90-120)
[2018-05-14 06:22] LABS: ALT (SGPT) 8 U/L (10-68); CALC OSMOLALITY 280 mosm/kg (275-300); GLUCOSE 245 mg/dL (74-106)
[2018-05-14 08:25] VITALS: BP 98/55
[2018-05-14 11:49] VITALS: BP 98/62
[2018-05-14 16:43] VITALS: BP 96/63
[2018-05-14 20:00] VITALS: BP 106/65
[2018-05-15 00:08] VITALS: BP 92/56
[2018-05-15 04:00] VITALS: BP 101/64
[2018-05-15 05:31] LABS: BASOPHILS 1.6 % (0-2); EOSINOPHILS 9.6 % (0-7); HEMATOCRIT 28.9 % (42.0-54.0); HEMOGLOBIN 9.4 g/dL (13.5-17.5); IMMATURE GRANULOCYTES 0.4 % (0-5); LYMPHOCYTES 29.2 % (15-50); MCH 30.2 pg (26.0-34.0); MCHC 32.5 g/dL (31.0-37.0); MCV 92.9 fL (80.0-100.0); MEAN PLATELET VOLUME 8.6 fL (7.4-10.4); MONOCYTES 13.5 % (2-11); NEUTROPHILS 45.7 % (40-80); PLATELET COUNT 451 10x3/uL (130-400); RBC 3.11 10x6/uL (4.20-6.10); RDW 14.6 % (11.5-14.5)
[2018-05-15 05:59] LABS: ALBUMIN 1.1 g/dL (3.4-5.0); ALKALINE PHOSPHATASE 139 U/L (46-116); ALT (SGPT) 7 U/L (10-68); CALC OSMOLALITY 269 mosm/kg (275-300); CALCIUM 7.4 mg/dL (8.5-10.1); CARBON DIOXIDE 32.9 mmol/L (21.0-32.0); CHLORIDE - SERUM 100 mmol/L (98-107); CREATININE - SERUM 0.7 mg/dL (0.6-1.3); GLUCOSE 195 mg/dL (74-106); POTASSIUM - SERUM 3.6 mmol/L (3.5-5.1); PROTEIN - SERUM 5.6 g/dL (6.4-8.2); SODIUM 132 mmol/L (136-145); UREA NITROGEN 12 mg/dL (7-18); eGFR NON AFRICAN AMERICAN > 90 mL/min (90-120)
[2018-05-15 08:11] VITALS: BP 96/65
[2018-05-15 13:04] VITALS: BP 115/71
[2018-05-15] MEDS ORDERED: NICODERM C1 PATCH .1 TRANSDERM (15:01)
[2018-05-15] MEDS ORDERED: FLAGYL500 MG PO (15:01)
== END 2018-05-15 17:18 | disposition home health service (06) | DRG 371 ==
LOC: D.ER 12:16 → D.MS 16:36 → D.EDHOLD 16:36 → D.MS 18:00
PROVIDERS: Emergency Medicine; Family Medicine
DX: A04.72 Enterocolitis due to Clostridium difficile, not specified as recurrent (principal); J18.9 Pneumonia, unspecified organism; L89.213 Pressure ulcer of right hip, stage 3; E43 Unspecified severe protein-calorie malnutrition; J96.01 Acute respiratory failure with hypoxia; F17.203 Nicotine dependence unspecified, with withdrawal; I50.32 Chronic diastolic (congestive) heart failure; L03.115 Cellulitis of right lower limb; T87.43 Infection of amputation stump, right lower extremity; E87.1 Hypo-osmolality and hyponatremia; M86.9 Osteomyelitis, unspecified; E11.628 Type 2 diabetes mellitus with other skin complications; E11.65 Type 2 diabetes mellitus with hyperglycemia; L89.622 Pressure ulcer of left heel, stage 2; L89.152 Pressure ulcer of sacral region, stage 2; R15.9 Full incontinence of feces; E11.69 Type 2 diabetes mellitus with other specified complication

== ENCOUNTER 2018-11-08 12:36 | Day surgery (SDC) | payer MEDICAID ==
[~2018-11-08] VITALS: Ht 175.3 cm; Wt 54.5 kg
--- NOTE | ~2018-11-08 | OP ---
PATIENT NAME: ELIE MARIA MEDICAL RECORD: [id number] :66 [facility]ATION:[facility] ADMISSION DATE: SURGEON: BRISSA BENITEZ MD DATE OF OPERATION: 11/08/2018 PROCEDURE: Colonoscopy with biopsy. SHOT TUBE MACHINE TENDER: Brissa Benitez MD SCOPE: Olympus video colonoscope. MEDICATIONS: Per TIVA anesthesia. The patient received 350 mg of propofol for this procedure, O2 at 4 liters. INDICATION FOR THE PROCEDURE: Abnormal weight loss; diarrhea; Clostridium difficile infection, status post treatment with Flagyl on 08/15/2018; also with Strep bovis infection. FINDINGS: Informed consent was given. The patient was made comfortable with the above medications. After reaching an adequate level of sedation by slow IV push, the patient was placed on his left side. The rectal exam revealed poor sphincter tone. No fissures or fistulas were appreciated. No external skin tags were seen. The colonoscope was advanced to the cecum where the ileocecal valve and the appendiceal orifice were identified. On withdrawal of the scope, mucosa was carefully inspected. Unfortunately, the patient had an extremely poor and inadequate prep, and for this reason, polyps and even masses could have been missed during our inspection. On the ileocecal valve, some mild inflammation was noted and biopsies were obtained. We also collected stool for viruses, parasites, and bacteria to include CDT colitis. Within the left side of the colon, the patient had very mild left-sided diverticulosis without any evidence of diverticulitis. He also had significant spasm, which could be associated with irritable bowel syndrome. Within the rectal anal area, a 2.5-cm polyp was seen and cold biopsies were taken. This will need to be removed with Dr. Casey at a later date with laser treatment. The patient will require a double prep for this procedure. It is dangerous to remove polyps in the rectum with hot cautery when the prep is this poor. We will discuss our recommendations and findings with the patient after the procedure and will then schedule a procedure with Dr. Casey for the near future. PLAN: 1. Referral with Dr. Casey as reported above. 2. No anti-inflammatory drugs or aspirin for 14 days. 3. High-fiber diet. 4. Probiotics. 5. We will check the path report as well as the stool studies to see if additional treatment is necessary. TRANSINT:[id number] Voice Confirmation ID: [id number] DOCUMENT ID: [id number] OPERATIVE REPORT [id number] ELIE MARIA BRENDA MD CC: SUSAN CASTELAN MD [id number] DICTATION DATE: 11/08/18 1506 LOAN REVIEW ANALYST: 11/08/18 1807 [facility] 11/08/18 [place] [id number] [place] [id number]
[~2018-11-08 12:36] MED LIST changes: +FLAGYL500 MG PO; +NICODERM C1 PATCH .1 TRANSDERM
[2018-11-08 13:14] VITALS: Ht 175.3 cm; Wt 54.5 kg
== END 2018-11-08 16:00 | disposition home or self-care (01) ==
LOC: D.OPS 12:36
DX: R63.4 Abnormal weight loss (principal); K62.1 Rectal polyp; A04.72 Enterocolitis due to Clostridium difficile, not specified as recurrent; Z01.812 Encounter for preprocedural laboratory examination

== ENCOUNTER 2019-01-02 08:00 | Outpatient (CLI) | payer MEDICAID ==
[2018-11-08 13:14] VITALS: Ht 175.3 cm; Wt 54.4 kg
[~2019-01-02] VITALS: Ht 175.3 cm; Wt 54.4 kg
[~2019-01-02 08:00] MED LIST changes: +LEVEMIR FLEXTOUCH 10 SQ
[2019-01-02 10:56] LABS: BASOPHILS 0.9 % (0-2); EOSINOPHILS 5.7 % (0-7); HEMATOCRIT 37.2 % (42.0-54.0); IMMATURE GRANULOCYTES 0.1 % (0-5); MCH 30.6 pg (26.0-34.0); MCHC 34.9 g/dL (31.0-37.0); MCV 87.5 fL (80.0-100.0); NEUTROPHILS 45.3 % (40-80); RBC 4.25 10x6/uL (4.20-6.10); RDW 14.3 % (11.5-14.5); WBC 7.6 10x3/uL (4.8-10.8)
[2019-01-02 10:59] LABS: CALC OSMOLALITY 280 mosm/kg (275-300); CALCIUM 8.5 mg/dL (8.5-10.1); CARBON DIOXIDE 24.3 mmol/L (21.0-32.0); CHLORIDE - SERUM 106 mmol/L (98-107); CREATININE - SERUM 0.7 mg/dL (0.6-1.3); PLATELET COUNT 247 10x3/uL (130-400); POTASSIUM - SERUM 3.8 mmol/L (3.5-5.1); SODIUM 141 mmol/L (136-145); UREA NITROGEN 16 mg/dL (7-18); eGFR NON AFRICAN AMERICAN > 90 mL/min (90-120)
[2019-01-02 11:00] LABS: GLUCOSE 83 mg/dL (74-106)
== END 2019-01-02 08:01 | disposition home or self-care (01) ==
LOC: D.OPS 08:00 → EDSTATUS 01-04 08:00 → D.OPS 01-04 08:00
PROVIDERS: ATTEND Surgery
DX: R22.9 Localized swelling, mass and lump, unspecified (principal); Z01.810 Encounter for preprocedural cardiovascular examination; Z01.811 Encounter for preprocedural respiratory examination; Z01.812 Encounter for preprocedural laboratory examination

== ENCOUNTER 2019-04-11 08:57 | Day surgery (SDC) | payer MEDICAID ==
[~2019-04-11] VITALS: Ht 175.3 cm; Wt 57.2 kg
[~2019-04-11 08:57] MED LIST changes: +GABAPENTIN100 MG PO; +LEVEMIR IN100 UNITS/; +LEVEMIR IN100 UNITS/ SC; +PERCOCET 10-321 EAC1 PO
[2019-04-11 09:46] LABS: BASOPHILS 0.3 % (0-2); EOSINOPHILS 1.7 % (0-7); HEMATOCRIT 34.7 % (42.0-54.0); HEMOGLOBIN 12.1 g/dL (13.5-17.5); IMMATURE GRANULOCYTES 0.3 % (0-5); LYMPHOCYTES 12.7 % (15-50); MCHC 34.9 g/dL (31.0-37.0); MCV 86.1 fL (80.0-100.0); MEAN PLATELET VOLUME 9.3 fL (7.4-10.4); MONOCYTES 8.3 % (2-11); NEUTROPHILS 76.7 % (40-80); RBC 4.03 10x6/uL (4.20-6.10); RDW 13.3 % (11.5-14.5); WBC 14.5 10x3/uL (4.8-10.8)
[2019-04-11 09:48] LABS: CALC OSMOLALITY 280 mosm/kg (275-300); CALCIUM 8.7 mg/dL (8.5-10.1); CARBON DIOXIDE 21.7 mmol/L (21.0-32.0); CHLORIDE - SERUM 96 mmol/L (98-107); CREATININE - SERUM 1.1 mg/dL (0.6-1.3); POTASSIUM - SERUM 4.4 mmol/L (3.5-5.1); SODIUM 133 mmol/L (136-145); UREA NITROGEN 21 mg/dL (7-18); eGFR NON AFRICAN AMERICAN 75 mL/min (90-120)
[2019-04-11 09:49] LABS: GLUCOSE 320 mg/dL (74-106)
[2019-04-11] MEDS ORDERED: PERCOCET 10-321 EAC1 PO ×2 (09:51→12:24)
[2019-04-11 09:53] VITALS: BP 141/86; Ht 175.3 cm; Wt 57.2 kg
[2019-04-11 09:56] LABS: PLATELET COUNT 339 10x3/uL (130-400)
--- NOTE | 2019-04-12 09:41 | OP ---
PATIENT NAME: ELIE MARIA MEDICAL RECORD: [id number] :66 LOCATION:D.OPS ADMISSION DATE: SURGEON: NOÉ VILLALTA MD DATE OF OPERATION: 04/11/2019 PREOPERATIVE DIAGNOSES: 1. Rectal mass. 2. Diabetes mellitus. 3. Peripheral vascular disease. 4. Tobacco dependence syndrome. POSTOPERATIVE DIAGNOSES: 1. Rectal mass. 2. Diabetes mellitus. 3. Peripheral vascular disease. 4. Tobacco dependence syndrome. PROCEDURE: Transanal excision of rectal mass. SURGEON: Noé Villalta MD REPORT OF PROCEDURE: The patient was placed in the jackknife prone position. An anoscope was inserted and a 360 degree inspection was performed. There were no distinct ulcerations present, but there was a pedunculated polyp on the anterior aspect of the most distal rectum near the dentate line. This was approximately 1 cm in greatest diameter. We elevated this mass and excised it at its base using electrocautery. We sent this off for permanent specimen. The base was then treated with electrocautery and the mucosal opening was closed off using a running 2-0 chromic. The wound noted to have a little bit of bleeding and this was oversewn with a [id number] 2-0 chromic, which discontinued bleeding. We then irrigated out the wound with normal saline and infused a total of 2 mL of 0.25% Marcaine with epinephrine. We then applied a piece of Gelfoam dipped in Americaine. COMPLICATIONS: None. CONDITION: Stable. ANESTHESIA: General endotracheal and local. BLOOD LOSS: Minimal. TRANSINT:[id number] Voice Confirmation ID: [id number] DOCUMENT ID: [id number] NOÉ VILLALTA MD at 0941 CC: Nile BRISENO JODI MD [id number] DICTATION DATE: 04/11/19 1233 OIL BOILER: 04/11/[address] [facility] 04/11/19 [place] [id number] [place] [address]
== END 2019-04-11 14:13 | disposition home or self-care (01) ==
LOC: D.OPS 08:57 → D.PAN 10:45 → D.OPS 10:45
PROVIDERS: ATTEND Surgery
DX: D12.8 Benign neoplasm of rectum (principal); E11.9 Type 2 diabetes mellitus without complications; I73.9 Peripheral vascular disease, unspecified; F17.200 Nicotine dependence, unspecified, uncomplicated; Z01.812 Encounter for preprocedural laboratory examination

== ENCOUNTER → 2019-05-10 10:39 | Outpatient (CLI) | payer MEDICAID ==
[2019-04-11 09:53] VITALS: BMI 18.6
== END | disposition home or self-care (01) ==
LOC: D.RAD 10:39
PROVIDERS: ATTEND Surgery
DX: R13.10 Dysphagia, unspecified (principal)

== ENCOUNTER 2019-05-24 16:26 | Inpatient (IN) | payer MEDICAID ==
[~2019-05-24] VITALS: Ht 175.3 cm; Wt 54.4 kg
[2019-05-24 16:57] LABS: BASOPHILS 0.4 % (0-2); EOSINOPHILS 2.8 % (0-7); HEMATOCRIT 35.3 % (42.0-54.0); HEMOGLOBIN 12.2 g/dL (13.5-17.5); IMMATURE GRANULOCYTES 0.3 % (0-5); LYMPHOCYTES 13.9 % (15-50); MCH 29.2 pg (26.0-34.0); MCHC 34.6 g/dL (31.0-37.0); MCV 84.4 fL (80.0-100.0); MEAN PLATELET VOLUME 8.9 fL (7.4-10.4); MONOCYTES 9.9 % (2-11); NEUTROPHILS 72.7 % (40-80); PLATELET COUNT 304 10x3/uL (130-400); RBC 4.18 10x6/uL (4.20-6.10); RDW 16.3 % (11.5-14.5); WBC 11.5 10x3/uL (4.8-10.8)
[2019-05-24 17:06] LABS: APTT 36.4 SECONDS (22.8-39.4); INR 1.13 (0.85-1.17)
[2019-05-24 17:13] LABS: ALBUMIN 2.1 g/dL (3.4-5.0); ALKALINE PHOSPHATASE 124 U/L (46-116); ALT (SGPT) 12 U/L (10-68); BILIRUBIN - TOTAL 0.32 mg/dL (0.2-1.3); CALC OSMOLALITY 274 mosm/kg (275-300); CALCIUM 8.9 mg/dL (8.5-10.1); CARBON DIOXIDE 25.7 mmol/L (21.0-32.0); CHLORIDE - SERUM 104 mmol/L (98-107); CREATININE - SERUM 0.9 mg/dL (0.6-1.3); POTASSIUM - SERUM 3.9 mmol/L (3.5-5.1); SODIUM 138 mmol/L (136-145); UREA NITROGEN 16 mg/dL (7-18); eGFR NON AFRICAN AMERICAN > 90 mL/min (90-120)
[2019-05-24 17:15] LABS: GLUCOSE 64 mg/dL (74-106)
--- NOTE | 2019-05-24 17:16 | NUR ---
CRITICAL LAB GLUCOSE 64 EDP ESTEFANIA NOTIFIED.
[2019-05-24 17:23] LABS: CKMB 0.7 U/L (0.0-3.6); CREATINE KINASE 26 UL (21-232); TROPONIN-I < 0.017 ng/mL (0.000-0.060)
--- NOTE | 2019-05-24 17:41 | NUR ---
PATIENT GIVEN URINAL TO COLLECT URINE SPECIMEN
--- NOTE | 2019-05-24 18:10 | NUR ---
POC GLUCOSE 129
[2019-05-24 18:32] VITALS: BP 126/78
[2019-05-24 18:43] LABS: APPEARANCE HAZY (CLEAR); COLOR YELLOW (YELLOW); NITRITE POSITIVE (NEGATIVE); SPECIFIC GRAVITY 1.015 (1.005-1.020)
[2019-05-24 18:53] LABS: BILIRUBIN NEGATIVE (NEGATIVE); GLUCOSE 100 mg/dL (NEGATIVE); KETONE NEGATIVE (NEGATIVE); PROTEIN 2+ mg/dL (NEGATIVE); UROBILINOGEN NORMAL (NORMAL)
[2019-05-24 18:54] LABS: BACTERIA MANY /hpf (NONE SEEN); RED CELLS - URINE 25-50 /hpf (0-5); WHITE CELLS - URINE >50 /hpf (0-5)
--- NOTE | 2019-05-24 20:15 | NUR ---
PT ARRIVED TO MED SURG UNIT WITH HOSPITAL STAFF AND FAMILY MEMBER, PT ALERT AND ORIENTED.
--- NOTE | 2019-05-24 21:45 | NUR ---
REMIND PT EAT SNACKS.
--- NOTE | 2019-05-24 22:01 | NUR ---
PT FINISHED SHOWER AND REST QUIETLY IN BED. CALL LIGHT IN REACH.
[2019-05-24 23:38] VITALS: BP 113/64; BMI 17.7
[2019-05-25 05:19] LABS: BASOPHILS 0.5 % (0-2); EOSINOPHILS 3.2 % (0-7); HEMATOCRIT 29.9 % (42.0-54.0); HEMOGLOBIN 10.3 g/dL (13.5-17.5); IMMATURE GRANULOCYTES 0.2 % (0-5); MCH 28.9 pg (26.0-34.0); MCHC 34.4 g/dL (31.0-37.0); MEAN PLATELET VOLUME 8.9 fL (7.4-10.4); MONOCYTES 9.6 % (2-11); NEUTROPHILS 69.5 % (40-80); PLATELET COUNT 293 10x3/uL (130-400); RBC 3.56 10x6/uL (4.20-6.10); RDW 16.3 % (11.5-14.5); WBC 10.7 10x3/uL (4.8-10.8)
[2019-05-25 05:26] VITALS: BP 94/51
[2019-05-25 05:49] LABS: ALBUMIN 1.8 g/dL (3.4-5.0); ALKALINE PHOSPHATASE 106 U/L (46-116); ALT (SGPT) 12 U/L (10-68); BILIRUBIN - TOTAL 0.23 mg/dL (0.2-1.3); CARBON DIOXIDE 23.6 mmol/L (21.0-32.0); CHLORIDE - SERUM 105 mmol/L (98-107); CREATININE - SERUM 0.8 mg/dL (0.6-1.3); PROTEIN - SERUM 6.7 g/dL (6.4-8.2); SODIUM 138 mmol/L (136-145); UREA NITROGEN 13 mg/dL (7-18); eGFR NON AFRICAN AMERICAN > 90 mL/min (90-120)
[2019-05-25 05:50] LABS: CALC OSMOLALITY 273 mosm/kg (275-300); GLUCOSE 57 mg/dL (74-106); POTASSIUM - SERUM 3.1 mmol/L (3.5-5.1)
--- NOTE | 2019-05-25 08:30 | NUR ---
AWAKE AND ALERT, ON ROOM AIR, PLACED ON TEMPORARY CONTACT ISOLATION FOR POSSIBLE MRSA, RIGHT FOREARM IV TO RIGHT FOREARM, SALINE LOCKED, RIGHT BKA, DENIES ANY CURRENT NEEDS OR DISCOMFORTS, BED LOWERED AND LOCKED, CALL LIGHT WITHIN REACH. CPOC
[2019-05-25 08:42] VITALS: BP 113/64
[2019-05-25 12:37] VITALS: BP 161/83
[2019-05-25 14:20] VITALS: BMI 17.7
[2019-05-25 18:21] VITALS: BP 121/64
[2019-05-25 21:43] VITALS: BP 103/55
[2019-05-26 00:56] VITALS: BP 106/64
--- NOTE | 2019-05-26 03:24 | NUR ---
I have reviewed this patient and I concur with the Shift Assessment completed by the Licensed Practical Nurse today this shift.
[2019-05-26 04:00] VITALS: BP 103/54
[2019-05-26 05:25] LABS: BASOPHILS 0.6 % (0-2); EOSINOPHILS 3.4 % (0-7); HEMATOCRIT 28.9 % (42.0-54.0); HEMOGLOBIN 9.7 g/dL (13.5-17.5); IMMATURE GRANULOCYTES 0.2 % (0-5); LYMPHOCYTES 17.9 % (15-50); MCH 28.5 pg (26.0-34.0); MCHC 33.6 g/dL (31.0-37.0); MEAN PLATELET VOLUME 8.7 fL (7.4-10.4); MONOCYTES 10.9 % (2-11); PLATELET COUNT 311 10x3/uL (130-400); RDW 16.5 % (11.5-14.5); WBC 10.8 10x3/uL (4.8-10.8)
[2019-05-26 05:43] LABS: ALBUMIN 1.8 g/dL (3.4-5.0); ALKALINE PHOSPHATASE 117 U/L (46-116); ALT (SGPT) 11 U/L (10-68); BILIRUBIN - TOTAL 0.24 mg/dL (0.2-1.3); CALCIUM 8.1 mg/dL (8.5-10.1); CARBON DIOXIDE 24.9 mmol/L (21.0-32.0); CHLORIDE - SERUM 106 mmol/L (98-107); CREATININE - SERUM 0.8 mg/dL (0.6-1.3); POTASSIUM - SERUM 3.3 mmol/L (3.5-5.1); PROTEIN - SERUM 6.7 g/dL (6.4-8.2); SODIUM 139 mmol/L (136-145); UREA NITROGEN 15 mg/dL (7-18); eGFR NON AFRICAN AMERICAN > 90 mL/min (90-120)
[2019-05-26 05:46] LABS: CALC OSMOLALITY 276 mosm/kg (275-300); GLUCOSE 64 mg/dL (74-106)
[2019-05-26 07:48] VITALS: Ht 175.3 cm; Wt 54.4 kg
[2019-05-26 09:25] VITALS: BP 125/76
--- NOTE | 2019-05-26 14:23 | NUR ---
OBSERVED RASH COVERING BOTH UPPER ARMS AND BACK. SENSITIVE TO TOUCH, NO FEVER, DENIES ANY ITCHING. STATED THE LAST TIME HE WAS IN THE HOSPTIAL HIS "SKIN WOULD PEEL RIGHT OFF AFTER HIS ANTIBIOTICS". STATED HE COULDN'T REMEMBER WHAT THE MEDICATION WAS, WILL SPEAK WITH TO SEE IF SHE CAN REMEMBER, UNAVAILABLE TO SPEAK TO ON PHONE AT CURRENT TIME (WORK).
[2019-05-26 17:39] VITALS: BP 110/66
--- NOTE | 2019-05-26 19:08 | NUR ---
aaox4 on room air, iv to right forearm patent, saline locked, right bka, bm x2, uses wheelchair for mobility, denies any current needs or discomforts, bed lowered and locked, call light within reach. cpoc
--- NOTE | 2019-05-26 19:25 | NUR ---
LYING IN BED. ALERT AND ORIENTED X4. C/O PAIN IN LT FLANK 3. RESP EVEN AND NONLABORED. RT BKA NOTED. TRANSFERS TO W/C. LUISANA ALARM ON FOR PT SAFETY. RED RASH NOTED TO TORSO. SCABS NOTED TO BUE AND BLE. SALINE LOCK NOTED TO RT FOREARM. NO DISTRESS. SR ELEVATED X2. CL IN REACH.
[2019-05-26 20:59] VITALS: BP 91/51
--- NOTE | 2019-05-27 01:10 | NUR ---
HAS SLEPT WELL SO FAR THIS SHIFT. NO DISTRESS. LUISANA ALARM IN USE. CL IN REACH. RESP EVEN AND NONLABORED.
--- NOTE | 2019-05-27 02:00 | NUR ---
INCONT OF BOWELS. BED BATH AND LINEN CHANGE DONE AT THIS TIME. CL IN REACH.
--- NOTE | 2019-05-27 05:37 | NUR ---
FSBS 390. PT NONCOMPLIANT. ATE CUPCAKES DURING NIGHT, PACKAGE WAS OBSERVED ON BEDSIDE TABLE. DISCOURAGED FROM EATING SWEETS. HE VERBALIZED UNDERSTANDING.
[2019-05-27 05:53] VITALS: BP 108/53
[2019-05-27 06:39] LABS: BASOPHILS 0.5 % (0-2); EOSINOPHILS 5.2 % (0-7); HEMATOCRIT 29.7 % (42.0-54.0); HEMOGLOBIN 9.9 g/dL (13.5-17.5); IMMATURE GRANULOCYTES 0.3 % (0-5); LYMPHOCYTES 9.8 % (15-50); MCH 28.6 pg (26.0-34.0); MCHC 33.3 g/dL (31.0-37.0); MCV 85.8 fL (80.0-100.0); MEAN PLATELET VOLUME 9.2 fL (7.4-10.4); MONOCYTES 7.9 % (2-11); NEUTROPHILS 76.3 % (40-80); PLATELET COUNT 354 10x3/uL (130-400); RBC 3.46 10x6/uL (4.20-6.10); RDW 16.6 % (11.5-14.5); WBC 13.2 10x3/uL (4.8-10.8)
[2019-05-27 06:56] LABS: ALBUMIN 1.7 g/dL (3.4-5.0); ALKALINE PHOSPHATASE 131 U/L (46-116); ALT (SGPT) 12 U/L (10-68); BILIRUBIN - TOTAL 0.24 mg/dL (0.2-1.3); CALCIUM 7.9 mg/dL (8.5-10.1); CARBON DIOXIDE 22.8 mmol/L (21.0-32.0); CHLORIDE - SERUM 104 mmol/L (98-107); CREATININE - SERUM 0.9 mg/dL (0.6-1.3); PROTEIN - SERUM 6.7 g/dL (6.4-8.2); SODIUM 137 mmol/L (136-145); UREA NITROGEN 14 mg/dL (7-18); eGFR NON AFRICAN AMERICAN > 90 mL/min (90-120)
[2019-05-27 07:02] LABS: CALC OSMOLALITY 283 mosm/kg (275-300); GLUCOSE 267 mg/dL (74-106); POTASSIUM - SERUM 3.5 mmol/L (3.5-5.1)
[2019-05-27 08:29] LABS: APTT 44.2 SECONDS (22.8-39.4); INR 1.26 (0.85-1.17); PROTIME 15.2 SECONDS (11.6-15.0)
[2019-05-27 09:00] VITALS: BP 90/46
[2019-05-27 13:45] VITALS: BP 98/58
[2019-05-27 15:26] LABS: % SATURATION 14 % (15-55); IRON 18 ug/dl (35-150); TOTAL IRON BIND CAPACITY 124 ug/dl (260-445); UNSAT IRON BIND CAPACITY 106 ug/dl (150-375)
--- NOTE | 2019-05-27 15:40 | MORECARE ---
CASE MANAGEMENT DISCHARGE SUMMARY PATIENT: ELIE MARIA UNIT: [id number] ADM DATE: 05/24/19 AGE: 49 : 66 SEX: M ROOM/BED: D.2228 AUTHOR: DHEERAJ ELIZABETH PHYSICIAN: REFERRING PHYSICIAN: ALEENA TORRES DO DATE OF SERVICE: 05/27/19 Discharge Plan Patient Name: ELIE MARIA Facility: [facility]:[place] : 1970 Planned Disposition: Home with Home Health Anticipated Discharge Date: Discharge Date: Expected LOS: Initial Reviewer: [email or web address] Initial Review Date: 05/27/2019 Generated: 05/27/19 4:40 pm Comments DCP- Discharge Planning Updated by [id number]: Amy Scherer on 05/27/19 2:[address] Patient Name: ELIE MARIA Admission Status: ER Accout number: [id number] Admission Date: 05-24-2019 : 1970 Admission Diagnosis:PSOAS MUSCLE ABSCESS Attending: ALEENA TORRES Current LOS: 3 Anticipated DC Date: Planned Disposition: Home with Home Health Primary Insurance: MEDICAID [place] Discharge Planning Comments: CM met with patient to complete initial dc planning assessment. CM educated patient on the CM role and verbal consent given by patient to complete assessment. Patient lives at home with his girlfriend (Maria Victoria). At discharge patient plans to return and feels this is a safe discharge. CM discussed availability of home health, rehab services, and medical equipment. Patient denied known discharge needs at this time. He has had home health with [facility] in the past and IV infusions with [facility] in the past. He states if he needs home health or IV infusions, he would like to use them again, MADHAVI form signed by his girlfriend per his request. CM will continue to follow and will assist as needed with dc plans/needs. Director Apparel: Amy Scherer DCPIA - Discharge Planning Initial Assessment Updated by [id number]: Amy Scherer on 05/27/19 3:37 pm * Is the patient Alert and Oriented? Yes * How many steps to enter\exit or inside your home? 3/0 * PCP Dr. Pedro * Pharm[facility] on [address] * Preadmission Environment Home with Family * ADLs Partial Dependent * Partial ADLs (Assistance needed) Ambulation Medication Management * Equipment Other Rolling Walker Walker Wheelchair * Other Equipment Leg Prosthesis * List name and contact numbers for known caregivers / representatives who currently or will assist patient after discharge: Maria Victoria Encarnacion - girlfriend - [phone] * Verbal permission to speak to the caregivers and representatives has been obtained from the patient. Yes * Community resources currently utilized None * Please name any agencies selected above. [facility] is prosthesis provider * Additional services required to return to the preadmission environment? Yes * Can the patient safely return to the preadmission environment? Yes * Has this patient been hospitalized within the prior 30 days at any hospital? No Patient Name: ELIE MARIA Page [phone] at 1540 All edits/amendments must be made on the electronic document DICTATION DATE: 05/27/19 1540 STAVE LOG RIPSAW OPERATOR: SHAUN 05/27/19 1540 RPT#: [id number] DC DATE: STATUS: ADM IN [facility] [address] [place] [address] END OF REPORT
--- NOTE | 2019-05-27 18:48 | NUR ---
I have reviewed this patient and I concur with the Shift Assessment completed by the Licensed Practical Nurse today this shift.
--- NOTE | 2019-05-27 19:45 | NUR ---
PT LYING IN BED RESTING, ALERT AND ORIENTED. DENIES NEEDS OR PAIN. STATES SOME SORENESS DRAIN IN LEFT HIP. PT INCONTINENT OF BOWEL AND BLADDER. PROVIDED MACHELLE CARE AND CHANGED LINENS. IV RIGHT FA SL, NO REDNESS OR SWELLING AT INSERTION SITE. CL IN REACH, WILL CTM
[2019-05-27 20:00] VITALS: BP 105/58
--- NOTE | 2019-05-27 22:00 | NUR ---
CORBY WILLOUGHBY APN NOTIFIED OF POSITIVE CDIFF. CHANGED CONTACT ISOLATION TO ENTERIC.
[2019-05-28 04:00] VITALS: BP 94/52
[2019-05-28 05:45] LABS: BASOPHILS 0.4 % (0-2); HEMATOCRIT 27.4 % (42.0-54.0); HEMOGLOBIN 9.1 g/dL (13.5-17.5); IMMATURE GRANULOCYTES 0.3 % (0-5); LYMPHOCYTES 11.1 % (15-50); MCH 28.6 pg (26.0-34.0); MCHC 33.2 g/dL (31.0-37.0); MCV 86.2 fL (80.0-100.0); MEAN PLATELET VOLUME 8.9 fL (7.4-10.4); MONOCYTES 6.8 % (2-11); NEUTROPHILS 77.4 % (40-80); PLATELET COUNT 377 10x3/uL (130-400); RBC 3.18 10x6/uL (4.20-6.10); RDW 16.7 % (11.5-14.5); WBC 15.3 10x3/uL (4.8-10.8)
[2019-05-28 06:06] LABS: ALBUMIN 1.6 g/dL (3.4-5.0); ALKALINE PHOSPHATASE 124 U/L (46-116); ALT (SGPT) 11 U/L (10-68); BILIRUBIN - TOTAL 0.39 mg/dL (0.2-1.3); CALC OSMOLALITY 276 mosm/kg (275-300); CARBON DIOXIDE 24.1 mmol/L (21.0-32.0); CHLORIDE - SERUM 104 mmol/L (98-107); CREATININE - SERUM 0.9 mg/dL (0.6-1.3); POTASSIUM - SERUM 3.4 mmol/L (3.5-5.1); PROTEIN - SERUM 6.6 g/dL (6.4-8.2); SODIUM 139 mmol/L (136-145); UREA NITROGEN 15 mg/dL (7-18); eGFR NON AFRICAN AMERICAN > 90 mL/min (90-120)
[2019-05-28 06:13] LABS: GLUCOSE 60 mg/dL (74-106)
[2019-05-28 09:00] VITALS: BP 102/61; BP 115/75
--- NOTE | 2019-05-28 10:00 | NUR ---
WENT TO ADMINISTER AM MEDS AND PT WAS OUT OF ROOM, PT TENDS TO GET IN WHEELCHAIR AND LEAVE THROUGHOUT THE DAY, ADVISED PT TO STAY IN ROOM. NO NEEDS VOICED, CONTINUE WITH PLAN OF CARE
[2019-05-28 10:15] LABS: FOLATE (FOLIC ACID) - SERUM 6.5 ng/mL (>3.0)
[2019-05-28 12:00] VITALS: BP 108/57
--- NOTE | 2019-05-28 13:43 | NUR ---
NUTRITION F/U PT CDT POSITIVE IN ENTERIC ISOLATION. PO INTAKE REMAINS POOR WITH 25% RECENT MEALS. WILL CONTINUE TO PROVIDE ADA DIET, MONITOR PO INTAKE. RD FOLLOWING
[2019-05-28 17:06] VITALS: BP 95/51
--- NOTE | 2019-05-28 18:55 | NUR ---
I have reviewed this patient and I concur with the Shift Assessment completed by the Licensed Practical Nurse today this shift.
--- NOTE | 2019-05-28 20:01 | NUR ---
REPORT RECIEVED AND ROUNDING COMPLETE. PATIENT LAYING IN BED IN SUPINE POSITION WITH HOB AT A 30% INCLINE. PATIENT HAS A RIGHT FOREARM PIV WITH ABX RUNNIGN AT THIS TIME. PATIENT STATES HE HAS NO NEEDS AT THIS TIME. CALL LIGHT WITHIN REACH AND BED IN LOWEST POSITION.
[2019-05-28 21:07] VITALS: BP 105/55
--- NOTE | 2019-05-28 21:46 | NUR ---
PATIENT LEFT ROOM IN WHEELCHAIR, REFUSED TO WEAR GOWN.
--- NOTE | 2019-05-29 00:16 | NUR ---
I have reviewed this patient and I concur with the Shift Assessment completed by the Licensed Practical Nurse today this shift.
[2019-05-29 01:00] VITALS: BP 109/56
--- NOTE | 2019-05-29 01:26 | NUR ---
PATIENT COMPLAINED OF RASH ON HIS BODY, CONTACTED CORBY IRIZARRY AND HE SAID TO GIVE HIM BENADRYL. I WILL WAIT FOR ORDER AND GIVE MEDS. PATIENT LAYING ON HIS LEFT SIDE RESTING. CALL LIGHT WITHIN REACH AND BED IN LOWEST POSITION.
--- NOTE | 2019-05-29 04:51 | NUR ---
PATIENT LAYING IN BED, DENIES ANY NEEDS AT THIS TIME CALL LIGHT WITHIN REACH AND BED INLOWEST POSITION.
[2019-05-29 05:02] VITALS: BP 104/59
[2019-05-29 06:28] LABS: BASOPHILS 0.5 % (0-2); EOSINOPHILS 5.2 % (0-7); HEMATOCRIT 27.1 % (42.0-54.0); HEMOGLOBIN 9.2 g/dL (13.5-17.5); IMMATURE GRANULOCYTES 0.4 % (0-5); MCH 28.8 pg (26.0-34.0); MCHC 33.9 g/dL (31.0-37.0); MCV 84.7 fL (80.0-100.0); MEAN PLATELET VOLUME 8.8 fL (7.4-10.4); MONOCYTES 11.2 % (2-11); NEUTROPHILS 72.7 % (40-80); PLATELET COUNT 361 10x3/uL (130-400); RDW 16.4 % (11.5-14.5)
[2019-05-29 06:54] LABS: ALBUMIN 1.6 g/dL (3.4-5.0); ALKALINE PHOSPHATASE 177 U/L (46-116); ALT (SGPT) 19 U/L (10-68); BILIRUBIN - TOTAL 0.39 mg/dL (0.2-1.3); CALC OSMOLALITY 272 mosm/kg (275-300); CALCIUM 7.8 mg/dL (8.5-10.1); CARBON DIOXIDE 22.8 mmol/L (21.0-32.0); CHLORIDE - SERUM 106 mmol/L (98-107); CREATININE - SERUM 0.6 mg/dL (0.6-1.3); GLUCOSE 101 mg/dL (74-106); POTASSIUM - SERUM 3.4 mmol/L (3.5-5.1); PROTEIN - SERUM 6.6 g/dL (6.4-8.2); SODIUM 136 mmol/L (136-145); UREA NITROGEN 15 mg/dL (7-18); eGFR NON AFRICAN AMERICAN > 90 mL/min (90-120)
--- NOTE | 2019-05-29 07:15 | NUR ---
PT ALERT AND ORIENTED. ENTERIC ISOLATION FOR CDIFF. ENTIRE BODY COVERED IN RED RASH. PHYSICIAN AWARE. RIGHT AKA. INCONTINENT OF BOWEL. USES WHEELCHAIR. ACHS. IV TO RIGHT SHOULDER, NS INFUSING @ 20ML/HR. SITE PATENT WITHOUT REDNESS OR SWELLING. NO C/O PAIN. NO S/S OF ACUTE DISTRESS NOTED. PT DENIES ANYTHING FURTHER AT THIS TIME. CALL LIGHT IN REACH. WILL CONTINUE TO MONITOR.
--- NOTE | 2019-05-29 07:30 | NUR ---
RESTING WITHOUT NEEDS.CALL LIGHT IN REACH
[2019-05-29 09:10] VITALS: BP 112/69
--- NOTE | 2019-05-29 09:14 | MORECARE ---
CASE MANAGEMENT DISCHARGE SUMMARY PATIENT: ELIE MARIA UNIT: [id number] ADM DATE: 05/24/19 AGE: 49 : 66 SEX: M ROOM/BED: D.2228 AUTHOR: GLENN,DOC PHYSICIAN: REFERRING PHYSICIAN: ALEENA TORRES DO DATE OF SERVICE: 05/29/19 Discharge Plan Patient Name: ELIE MARIA Facility: [facility]:[place] : 1970 Planned Disposition: Home with Home Health Anticipated Discharge Date: Discharge Date: Expected LOS: Initial Reviewer: [email or web address] Initial Review Date: 05/27/2019 Generated: 05/29/19 10:14 am Comments DCP- Discharge Planning Updated by [id number]: Amy Scherer on 05/29/19 8:[address] Clinical faxed to [facility] for home IV antibiotic. I gave an order sheet to Juventino Crooks APN for Dr. Hdz when he knows what antibiotic the patient will likely go home on. CM will continue to follow and assist with discharge planning/needs. DCP- Discharge Planning Updated by [email or web address]: Amy Scherer on 05/27/19 2:[address] Patient Name: ELIE MARIA Admission Status: ER Accout number: [id number] Admission Date: 05-24-2019 : 1970 Admission Diagnosis:PSOAS MUSCLE ABSCESS Attending: ALEENA TORRES Current LOS: 3 Anticipated DC Date: Planned Disposition: Home with Home Health Primary Insurance: MEDICAID [place] Discharge Planning Comments: CM met with patient to complete initial dc planning assessment. CM educated patient on the CM role and verbal consent given by patient to complete assessment. Patient lives at home with his girlfriend (Maria Victoria). At discharge patient plans to return and feels this is a safe discharge. CM discussed availability of home health, rehab services, and medical equipment. Patient denied known discharge needs at this time. He has had home health with [facility] in the past and IV infusions with [facility] in the past. He states if he needs home health or IV infusions, he would like to use them again, MADHAVI form signed by his girlfriend per his request. CM will continue to follow and will assist as needed with dc plans/needs. Road Grader: Amy Mckeonumair DCPIA - Discharge Planning Initial Assessment Updated by [id number]: Amy Scherer on 05/27/19 3:37 pm * Is the patient Alert and Oriented? Yes * How many steps to enter\exit or inside your home? 3/0 * PCP Dr. Pedro * Pharmacy [facility] on [address] * Preadmission Environment Home with Family * ADLs Partial Dependent * Partial ADLs (Assistance needed) Ambulation Medication Management * Equipment Other Rolling Walker Walker Wheelchair * Other Equipment Leg Prosthesis * List name and contact numbers for known caregivers / representatives who currently or will assist patient after discharge: Maria Victoria Encarnacion - girlfriend - [phone] * Verbal permission to speak to the caregivers and representatives has been obtained from the patient. Yes * Community resources currently utilized None * Please name any agencies selected above. [facility] is prosthesis provider * Additional services required to return to the preadmission environment? Yes * Can the patient safely return to the preadmission environment? Yes * Has this patient been hospitalized within the prior 30 days at any hospital? No External Providers External Provider: [facility] Next Contact Date: Service Request Date: Service Type: Resolution: Reviewer: Comments: Coverage Notice Reviewer: [id number] - Amy Scherer Notice Issued Date-Time: 05/27/2019 15:40 Notice Type: Patient Choice Letter Notice Delivered To: Patient Relationship to Patient: Self Quality Associate Name: Delivery Method: HAND - Hand Delivered My Days: Prior Verbal Notification: Recipient Understood Notice: Yes Recipient Signature: Yes Med Rec Note Co-signed by Attending: Coverage Notice Comment: MADHAVI for [facility] and [facility] infusions signed by Maria Victoria Encarnacion (girlfriend) per his request. Last DP export: 05/27/19 2:40 pm Patient Name: ELIE MARIA Page [phone] at 0914 All edits/amendments must be made on the electronic document DICTATION DATE: 05/29/19912 SEWING MACHINE OPERATOR ZIPPER: SHAUN 05/29/19912 RPT#: [id number] DC DATE: STATUS: ADM IN [facility] [address] [place] [address] END OF REPORT
[2019-05-29 13:24] VITALS: BP 100/55
--- NOTE | 2019-05-29 16:33 | NUR ---
I have reviewed this patient and I concur with the Shift Assessment completed by the Licensed Practical Nurse today this shift.
[2019-05-29 17:43] VITALS: BP 133/79
--- NOTE | 2019-05-29 19:35 | NUR ---
PT SITTING UP IN BED WITHOUT DISTRESS. ALERT AND ORIENTED. STATES PAIN IN LEFT HIP 02/03. DRAIN IN PLACE. RED RASH ALL OVER BODY. NO IV ACCESS AT THIS TIME. DENIES NEEDS. CL IN REACH, WILL CTM
[2019-05-29 20:00] VITALS: BP 108/63
--- NOTE | 2019-05-29 21:45 | NUR ---
PT INCONTINENT OF BOWEL AND BLADDER. MACHELLE CARE PROVIDED AND COMPLETE LINEN CHANGE
[2019-05-30 04:00] VITALS: BP 110/68
[2019-05-30 07:27] LABS: BASOPHILS 0.2 % (0-2); EOSINOPHILS 5.6 % (0-7); HEMATOCRIT 26.6 % (42.0-54.0); HEMOGLOBIN 9.1 g/dL (13.5-17.5); IMMATURE GRANULOCYTES 0.2 % (0-5); LYMPHOCYTES 9.3 % (15-50); MCH 29.2 pg (26.0-34.0); MCHC 34.2 g/dL (31.0-37.0); MCV 85.3 fL (80.0-100.0); MEAN PLATELET VOLUME 8.7 fL (7.4-10.4); NEUTROPHILS 74.7 % (40-80); PLATELET COUNT 391 10x3/uL (130-400); RBC 3.12 10x6/uL (4.20-6.10); RDW 16.6 % (11.5-14.5); WBC 12.7 10x3/uL (4.8-10.8)
[2019-05-30 07:54] LABS: ALBUMIN 1.5 g/dL (3.4-5.0); ALKALINE PHOSPHATASE 184 U/L (46-116); ALT (SGPT) 16 U/L (10-68); BILIRUBIN - TOTAL 0.29 mg/dL (0.2-1.3); CALC OSMOLALITY 272 mosm/kg (275-300); CALCIUM 7.6 mg/dL (8.5-10.1); CARBON DIOXIDE 23.4 mmol/L (21.0-32.0); CHLORIDE - SERUM 106 mmol/L (98-107); GLUCOSE 79 mg/dL (74-106); POTASSIUM - SERUM 3.2 mmol/L (3.5-5.1); PROTEIN - SERUM 6.3 g/dL (6.4-8.2); SODIUM 137 mmol/L (136-145); UREA NITROGEN 13 mg/dL (7-18)
[2019-05-30 07:57] LABS: CREATININE - SERUM 0.8 mg/dL (0.6-1.3); eGFR NON AFRICAN AMERICAN > 90 mL/min (90-120)
[2019-05-30 08:47] VITALS: BP 103/54
--- NOTE | 2019-05-30 09:00 | NUR ---
SITTING UP IN BED PLAYING ON HIS PHONE. CHANGED BED PADS AND LINENS FROM BEING SOILED. PATIENTS DENIES PAIN OR ANY NEEDS AT THIS TIME. BED LOW, CALL LIGHT IN REACH, RAILS UP X 3. WILL CONTINUE TO MONITOR.
--- NOTE | 2019-05-30 14:00 | NUR ---
PT SITTING UP IN BED WATCHING TV, REPORTS PAIN 6/10, GAVE HYDROCODONE PER DR.S ORDER, WILL CONTINUE TO MONITOR. FLUSHED DRAIN TO LEFT HIP WITH 10 ML NS.
[2019-05-30 14:10] VITALS: BP 108/72
--- NOTE | 2019-05-30 16:53 | NUR ---
FSBS 195, TREATED WITH 2 UNITS OF INSULIN.
--- NOTE | 2019-05-30 19:30 | NUR ---
PT OFF FLOOR WHEN ATTEMPTING TO MEET AND ASSESS.
--- NOTE | 2019-05-30 19:35 | NUR ---
PT ALERT AND ORIENTED. REQUESTS PAIN MEDICINE WHEN AVAILABLE. LUNGS PRESENT WITH BILATERAL EXPIRATORY WHEEZES WITH DIMINSHED SOUNDS IN THE LOWER LOBES. LEFT CHEST INFUSAPORT THAT IS ACCESSED AND PATENT. DENIES FURTHER NEEDS. HAS CALL LIGHT IN HAND.
[2019-05-30 20:00] VITALS: BP 115/63
--- NOTE | 2019-05-30 21:00 | NUR ---
PT RETURNED TO FLOOR. STATES HE HAS BEEN OUTSIDE. STATES HE IS ABLE TO GO WHEN HE WANTS AND HAS NOT HAD ISSUES PRIOR TO THIS. SPOKE WITH PATIENT ABOUT COMMUNICATION AND TO LET NURSING STAFF KNOW IF PATIENT WILL BE LEAVING UNIT. PT VERBALIZES UNDERSTANDING. PT IS RIGHT BKA. PT HAS GENERALIZED REDDENDED RASH. STATES HE HAS HAD THIS BEFORE IN PAST. HAS LEFT FOREARM IV THAT IS SALINE LOCKED. BILI DRAIN TO THE LEFT LOWER ABDOMEN/HIP AREA THAT CONTAINS CLOUDY GREEN DRAINAGE. PT STATES PAIN ONLY TO TOUCH SKIN IS "SENSITIVE". PT INCONTINENT OF BOWEL AND BLADDER. ASSISTED PATIENT WITH CLEANING UP AND APPLIED CALMOSEPTINE TO BUTTOCKS. EXCORIATION NOTED. DENIES FURTHER NEEDS AT THIS TIME. HAS CALL LIGHT IN HAND. USES WHEN IN NEED OF ASSISTANCE. PT IS ALERT AND ORIENTED. CONTINUE WITH PLAN OF CARE.
[2019-05-31] VITALS: BP 107/58
[2019-05-31 04:00] VITALS: BP 171/50
[2019-05-31 07:06] LABS: CALC OSMOLALITY 278 mosm/kg (275-300); CALCIUM 7.7 mg/dL (8.5-10.1); CARBON DIOXIDE 24.1 mmol/L (21.0-32.0); CHLORIDE - SERUM 106 mmol/L (98-107); CREATININE - SERUM 0.8 mg/dL (0.6-1.3); GLUCOSE 143 mg/dL (74-106); POTASSIUM - SERUM 3.3 mmol/L (3.5-5.1); SODIUM 139 mmol/L (136-145); UREA NITROGEN 11 mg/dL (7-18); eGFR NON AFRICAN AMERICAN > 90 mL/min (90-120)
[2019-05-31 07:23] LABS: BASOPHILS 0.4 % (0-2); EOSINOPHILS 6.9 % (0-7); HEMATOCRIT 28.2 % (42.0-54.0); HEMOGLOBIN 9.4 g/dL (13.5-17.5); IMMATURE GRANULOCYTES 0.6 % (0-5); LYMPHOCYTES 10.8 % (15-50); MCH 28.4 pg (26.0-34.0); MCHC 33.3 g/dL (31.0-37.0); MCV 85.2 fL (80.0-100.0); MEAN PLATELET VOLUME 8.5 fL (7.4-10.4); MONOCYTES 9.1 % (2-11); NEUTROPHILS 72.2 % (40-80); PLATELET COUNT 428 10x3/uL (130-400); RBC 3.31 10x6/uL (4.20-6.10); RDW 16.5 % (11.5-14.5); WBC 11.7 10x3/uL (4.8-10.8)
[2019-05-31 08:29] VITALS: BP 107/63
[2019-05-31 13:32] VITALS: BP 101/64
--- NOTE | 2019-05-31 15:13 | NUR ---
I have reviewed this patient and I concur with the Shift Assessment completed by the Licensed Practical Nurse today this shift.
--- NOTE | 2019-05-31 15:14 | NUR ---
I have reviewed this patient and I concur with the Shift Assessment completed by the Licensed Practical Nurse today this shift.
--- NOTE | 2019-05-31 19:30 | NUR ---
PT ALERT AND ORIENTED. GENERALIZED REDNESS ALL OVER BODY. PT IS RIGHT BKA. TRANSFERS SELF FROM BED TO WHEEL CHAIR. HAS LEFT HIP ABCESS. DRAIN PULLED TODAY. SITE HAS DRESSING WITH MINIAL DRAINAGE NOTED. LEFT FOREARM IV REMAINS PATENT AND WITHOUT REDNESS OR TENDERNESS TO THE INSERTION SITE. PT DENIES NEEDS AT THIS TIME. HAS CALL LIGHT IN HAND. BED LOWERED AND LOCKED. CONTINUE PLAN OF CARE AT THIS TIME.
[2019-05-31 21:13] VITALS: BP 96/55
[2019-06-01 05:10] VITALS: BP 100/57
[2019-06-01 05:45] LABS: BASOPHILS 0.5 % (0-2); EOSINOPHILS 5.6 % (0-7); HEMATOCRIT 25.7 % (42.0-54.0); HEMOGLOBIN 8.6 g/dL (13.5-17.5); IMMATURE GRANULOCYTES 1.1 % (0-5); LYMPHOCYTES 14.4 % (15-50); MCH 28.3 pg (26.0-34.0); MCHC 33.5 g/dL (31.0-37.0); MCV 84.5 fL (80.0-100.0); MEAN PLATELET VOLUME 8.3 fL (7.4-10.4); MONOCYTES 10.2 % (2-11); NEUTROPHILS 68.2 % (40-80); PLATELET COUNT 404 10x3/uL (130-400); RBC 3.04 10x6/uL (4.20-6.10); RDW 16.5 % (11.5-14.5); WBC 12.4 10x3/uL (4.8-10.8)
[2019-06-01 06:06] LABS: CALC OSMOLALITY 282 mosm/kg (275-300); CALCIUM 7.7 mg/dL (8.5-10.1); CARBON DIOXIDE 23.2 mmol/L (21.0-32.0); CHLORIDE - SERUM 107 mmol/L (98-107); CREATININE - SERUM 0.9 mg/dL (0.6-1.3); GLUCOSE 186 mg/dL (74-106); MAGNESIUM - SERUM 1.7 mg/dL (1.8-2.4); POTASSIUM - SERUM 3.5 mmol/L (3.5-5.1); SODIUM 140 mmol/L (136-145); UREA NITROGEN 10 mg/dL (7-18); eGFR NON AFRICAN AMERICAN > 90 mL/min (90-120)
--- NOTE | 2019-06-01 09:00 | NUR ---
ALERT AND ORIENTED X 3. LUNGS CLEAR BILATERALLY IN ALL LOMAX. HEART SOUNDS S1 AND S2 HEARD IN ALL LOMAX. BOWEL SOUNDS ACTIVE X 4. 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 EXCORIATION TO BOTTOM. DENIES PAIN. DENIES NEEDS. BED LOW. CALL HUTCHINSON AND PERSONAL ITEMS IN REACH. WILL CONTINUE TO MONITOR.
[2019-06-01 09:09] VITALS: BP 98/56
--- NOTE | 2019-06-01 11:44 | NUR ---
NO SYMPTOMS HYPOGLYCEMIA. BLOOD SUGAR 50. PEANUT BUTTER AND ORANGE JUICE GIVEN. STATES FEELS FINE AND IS LEAVING FLOOD TO SMOKE. EDUCATION PROVIDED NOT TO LEAVE FLOOR. LEFT FLOOR ANYWAY.
[2019-06-01 13:16] VITALS: BP 110/70
--- NOTE | 2019-06-01 13:51 | NUR ---
RESTING IN BED. DENIES NEEDS. WILL CONTINUE TO MONITOR.
--- NOTE | 2019-06-01 15:30 | NUR ---
PATIENT NOT IN ROOM TO GIVE MEDICATION.
[2019-06-01 16:43] VITALS: BP 89/55
[2019-06-01 19:51] VITALS: BP 114/74
--- NOTE | 2019-06-01 20:00 | NUR ---
ALERT RESTING IN BED NO C/O OR REQUEST, SEE SHIFT ASSESSMENT,CALL JUAN NEGRETE
--- NOTE | 2019-06-01 21:00 | NUR ---
INCONTIENT OF LARGE AMOUT OF SOFT FORMED STOOL, CALASEPTIMINE APPLIED TO MACHELLE AREA DUE TO REDNESS
[2019-06-02] VITALS: BP 128/77
[2019-06-02 04:54] VITALS: BP 111/59
[2019-06-02 06:29] LABS: BASOPHILS 0.7 % (0-2); EOSINOPHILS 6.6 % (0-7); HEMATOCRIT 26.1 % (42.0-54.0); HEMOGLOBIN 8.6 g/dL (13.5-17.5); IMMATURE GRANULOCYTES 0.9 % (0-5); LYMPHOCYTES 18.7 % (15-50); MCH 28.2 pg (26.0-34.0); MCV 85.6 fL (80.0-100.0); MEAN PLATELET VOLUME 8.4 fL (7.4-10.4); NEUTROPHILS 66.1 % (40-80); PLATELET COUNT 443 10x3/uL (130-400); RBC 3.05 10x6/uL (4.20-6.10); RDW 16.8 % (11.5-14.5); WBC 10.7 10x3/uL (4.8-10.8)
[2019-06-02 07:00] LABS: CALC OSMOLALITY 279 mosm/kg (275-300); CALCIUM 7.6 mg/dL (8.5-10.1); CARBON DIOXIDE 22.8 mmol/L (21.0-32.0); CHLORIDE - SERUM 108 mmol/L (98-107); CREATININE - SERUM 0.8 mg/dL (0.6-1.3); GLUCOSE 166 mg/dL (74-106); POTASSIUM - SERUM 3.4 mmol/L (3.5-5.1); SODIUM 139 mmol/L (136-145); UREA NITROGEN 7 mg/dL (7-18); eGFR NON AFRICAN AMERICAN > 90 mL/min (90-120)
[2019-06-02 07:47] VITALS: BP 98/63
--- NOTE | 2019-06-02 09:45 | NUR ---
ALERT AND ORIENTED AND CONTINUED ON ENTERIC ISOLATION. LUNGS CTA AND HRRR. DENIES ANY PAIN OR DISCOMFORT. EXCORIATION NOTED TO PERIAREA WITH LANASEPTIC APPLIED PRN. IVF INFUSING AT PRESCRIBED RATE. ENCOURAGED TO USE CALL LIGHT FOR ASSSIT.
[2019-06-02 13:06] VITALS: BP 99/62
[2019-06-02 17:10] VITALS: BP 122/78
--- NOTE | 2019-06-02 20:00 | NUR ---
ALERT RESTING IN BED INCONTIENT OF SOFT STOOL, PADS CHANGED, DENIES PAIN, SEE SHIFT ASSESSMENT, CALL LIGHT IN REACH
[2019-06-02 20:32] VITALS: BP 100/54
[2019-06-03 04:57] VITALS: BP 107/47
[2019-06-03 05:29] LABS: BASOPHILS 0.5 % (0-2); HEMOGLOBIN 8.8 g/dL (13.5-17.5); IMMATURE GRANULOCYTES 0.8 % (0-5); LYMPHOCYTES 16.7 % (15-50); MCH 28.9 pg (26.0-34.0); MCHC 33.8 g/dL (31.0-37.0); MCV 85.5 fL (80.0-100.0); MEAN PLATELET VOLUME 8.2 fL (7.4-10.4); MONOCYTES 6.6 % (2-11); NEUTROPHILS 70.4 % (40-80); PLATELET COUNT 459 10x3/uL (130-400); RBC 3.04 10x6/uL (4.20-6.10); RDW 16.8 % (11.5-14.5); WBC 12.7 10x3/uL (4.8-10.8)
[2019-06-03 05:51] LABS: CALC OSMOLALITY 275 mosm/kg (275-300); CALCIUM 7.7 mg/dL (8.5-10.1); CARBON DIOXIDE 22.8 mmol/L (21.0-32.0); CHLORIDE - SERUM 107 mmol/L (98-107); CREATININE - SERUM 0.7 mg/dL (0.6-1.3); GLUCOSE 136 mg/dL (74-106); POTASSIUM - SERUM 3.8 mmol/L (3.5-5.1); SODIUM 138 mmol/L (136-145); UREA NITROGEN 6 mg/dL (7-18); eGFR NON AFRICAN AMERICAN > 90 mL/min (90-120)
[2019-06-03 08:39] VITALS: BP 126/79
--- NOTE | 2019-06-03 10:43 | NUR ---
IN ROOM. PATIENT HAD BREAKFAST WITH US AND FOOD FROM [employer]. CL IN REACH. FRESH WATER PROVIDED. NO FURTHER NEEDS AT THIS TIME
[2019-06-03 13:13] VITALS: BP 128/77
--- NOTE | 2019-06-03 14:44 | NUR ---
NUTRITION F/U CHART REVIEWED, PT OOR. TOLERATING DIABETIC DIET WITH ~50% INTAKE RECENT MEALS. WILL CONTINUE TO PROVIDE DIET, MONITOR INTAKE. RD FOLLOWING
[2019-06-03 16:46] VITALS: BP 116/72
--- NOTE | 2019-06-03 21:00 | NUR ---
FSBS 125. PT REQUESTS SANDWICH AFTER LEVIMIR. DENIES PAIN, WILL CONTINUE TO MONITOR.
[2019-06-03 21:13] VITALS: BP 116/77
[2019-06-04 01:24] VITALS: BP 124/78
--- NOTE | 2019-06-04 03:11 | NUR ---
I have reviewed this patient and I concur with the Shift Assessment completed by the Licensed Practical Nurse today this shift.
[2019-06-04 05:28] LABS: BASOPHILS 0.1 % (0-2); EOSINOPHILS 2.8 % (0-7); HEMOGLOBIN 10.5 g/dL (13.5-17.5); IMMATURE GRANULOCYTES 0.7 % (0-5); LYMPHOCYTES 12.8 % (15-50); MCH 28.9 pg (26.0-34.0); MCHC 33.3 g/dL (31.0-37.0); MCV 86.8 fL (80.0-100.0); MEAN PLATELET VOLUME 8.2 fL (7.4-10.4); MONOCYTES 2.1 % (2-11); NEUTROPHILS 81.5 % (40-80); PLATELET COUNT 421 10x3/uL (130-400); RBC 3.63 10x6/uL (4.20-6.10); RDW 16.9 % (11.5-14.5); WBC 14.8 10x3/uL (4.8-10.8)
[2019-06-04 05:35] LABS: HEMATOCRIT 31.5 % (42.0-54.0)
[2019-06-04 05:48] LABS: CALCIUM 7.7 mg/dL (8.5-10.1); CARBON DIOXIDE 23.1 mmol/L (21.0-32.0); CHLORIDE - SERUM 108 mmol/L (98-107); MAGNESIUM - SERUM 1.7 mg/dL (1.8-2.4); POTASSIUM - SERUM 3.5 mmol/L (3.5-5.1); SODIUM 139 mmol/L (136-145); UREA NITROGEN 6 mg/dL (7-18)
[2019-06-04 05:53] LABS: CALC OSMOLALITY 274 mosm/kg (275-300); CREATININE - SERUM 0.9 mg/dL (0.6-1.3); GLUCOSE 87 mg/dL (74-106); eGFR NON AFRICAN AMERICAN > 90 mL/min (90-120)
--- NOTE | 2019-06-04 07:23 | NUR ---
INITIAL ROUNDING, WHITE BOARD UPDATED. PATIENT IS SITTING IN HIS WHEELCHAIR AT BEDSIDE, REQUESTING ME TO HOLD THE CHAIR STILL SO HE CAN GET BACK INTO THE BED, STATES THE CHAIR HAS NO BRAKES. PATIENT IS REPORTING FEELING SOB AND ASKING WHY HE FEELS LIKE THIS, ASKING IF HIS HEART IS QUITTING. THE PATIENT HAS JUST COME BACK INTO THE BUILDING FROM OUTSIDE SMOKING. THIS NURSE INSTRUCTED THE PATIENT ON SAFETY, AND HIS LOW BLOOD PRESSURE. INSTRUCTED THE PATIENT THAT THE LOW BLOOD PRESSURE CAN MAKE HIM FEEL SOB AND BE DANGEROUS WHEN UP WITHOUT ASSISTANCE. PATIENT STATES "THEY LET ME GO OUT WHEN I WANT, I NEED TO GO OUT" THE PATIENT IS WEARING A DEPENDS, CALL LIGHT IN REACH, ASSISTED BACK TO BED.
[2019-06-04 09:30] VITALS: BP 83/50
--- NOTE | 2019-06-04 09:43 | NUR ---
TREASURY MANAGEMENT SALES CONSULTANT AND MYSELF CLAEAND THE PATIENT AFTER STOOL, PATIENT WAS VERY UNCOMFORTABLE, REPORTING PAIN TO THE TOUCH. WARM TOWELS/WIPES USED, UNDER PADS CHANGED. PATIENT INSTRUCTED ON THE IMPORTANCE OF LEAVING THE DEPENDS OFF FOR THE DAY TO ALLOW AIR TO THE MACHELLE AREA, HE AGREED. CALMOSEPTINE APPLIED TO THE THE ENTIRE MACHELLE AREA ORDERED.
--- NOTE | 2019-06-04 10:09 | NUR ---
THE PATIENT CONTINUES TO REFUSE TO ALLOW THIS NURSE TO SECTION HOUSEKEEPER HIS IVF THAT ORDERED, STATING..."NO MY WILL BE HERE AFTER WHILE, ILL WAIT TILL THEN"
--- NOTE | 2019-06-04 11:10 | NUR ---
PATIENT IS OUTSIDE AT THE FRONT DOOR IN A WHEELCHAIR, SPOUSE WITH THE PATIENT, HE IS SMOKING AT THE FRONT DOOR, BLANKET OVER HIS LAP
--- NOTE | 2019-06-04 12:18 | NUR ---
CALLED AND SPOKE TO ALBERTO IN IR TO REPORT RE-CONSULT FOR REOCCURING ABCESS.
--- NOTE | 2019-06-04 12:20 | NUR ---
TRINH FROM [facility] CALLED AND SPOKE TO DR WYMAN RE THE RE CONSULT.
[2019-06-04 13:32] VITALS: BP 96/61
--- NOTE | 2019-06-04 15:19 | NUR ---
THE PATIENT IS EATING A TUNA SANDWICH FROM [employer] THAT HIS SPOUSE BROUGHT HIM. HE IS ASKING TO BE DISCONNECTED FROM THE IV SO THAT HE CAN GO OUT TO SMOKE. IT WAS EXPLAINED TO HIM THAT HE NEEDED THE IV FLUIDS TO BE INFUSING AND HIS BLOOD PRESSURE IS LOW AND THIS COULD CAUSE DIZZINESS, AND OR FALL. HE STATED, "IT WILL ONLY BE FOR 15 MINUTES, BUT I AM GOING TO SMOKE". SPOUSE STATED "I CAN JUST PUSH THE POLE BEHIND YOUR CHAIR, IT IS OK.
[2019-06-04 17:19] VITALS: BP 90/55
[2019-06-05 01:23] VITALS: BP 107/64
[2019-06-05 04:53] VITALS: BP 124/60
[2019-06-05 07:45] LABS: BASOPHILS 0.1 % (0-2); EOSINOPHILS 4.3 % (0-7); HEMATOCRIT 29.1 % (42.0-54.0); HEMOGLOBIN 9.4 g/dL (13.5-17.5); IMMATURE GRANULOCYTES 0.9 % (0-5); LYMPHOCYTES 8.2 % (15-50); MCH 28.3 pg (26.0-34.0); MCHC 32.3 g/dL (31.0-37.0); MCV 87.7 fL (80.0-100.0); MEAN PLATELET VOLUME 8.4 fL (7.4-10.4); MONOCYTES 2.5 % (2-11); PLATELET COUNT 452 10x3/uL (130-400); RBC 3.32 10x6/uL (4.20-6.10); RDW 17.3 % (11.5-14.5); WBC 17.6 10x3/uL (4.8-10.8)
[2019-06-05 07:48] LABS: ALBUMIN 1.4 g/dL (3.4-5.0); ALKALINE PHOSPHATASE 204 U/L (46-116); ALT (SGPT) 12 U/L (10-68); BILIRUBIN - TOTAL 0.26 mg/dL (0.2-1.3); CALCIUM 7.3 mg/dL (8.5-10.1); CARBON DIOXIDE 22.9 mmol/L (21.0-32.0); CHLORIDE - SERUM 107 mmol/L (98-107); CREATININE - SERUM 0.9 mg/dL (0.6-1.3); MAGNESIUM - SERUM 1.9 mg/dL (1.8-2.4); POTASSIUM - SERUM 4.6 mmol/L (3.5-5.1); PROTEIN - SERUM 5.8 g/dL (6.4-8.2); SODIUM 138 mmol/L (136-145); eGFR NON AFRICAN AMERICAN > 90 mL/min (90-120)
[2019-06-05 07:49] LABS: CALC OSMOLALITY 282 mosm/kg (275-300); GLUCOSE 251 mg/dL (74-106); UREA NITROGEN 10 mg/dL (7-18)
[2019-06-05 08:39] VITALS: BP 114/63
--- NOTE | 2019-06-05 13:18 | NUR ---
I have reviewed this patient and I concur with the Shift Assessment completed by the Licensed Practical Nurse today this shift.
--- NOTE | 2019-06-05 21:45 | NUR ---
PT SITTING UP IN BED WITHOUT DISTRESS, ALERT AND ORIENTED. INCONTINENT OF LARGE SOFT STOOL. PT GIVEN BED BATH AND MACHELLE CARE. CALMOSEPTINE APPLIED. BS 175, REFUSED REGULAR INSULIN. TOOK 10 UNITS OF LEVEMIR. IV LEFT FA INFUSING NS @ 75. DRESSING TO LEFT HIP CDI. LINENS CHANGED. REFUSES SCDS. PT HAD TWO OLD SORES ON BACK OF HEEL, HEEL IS RED AND SWOLLEN AND HURTING PT. ENCOURAGED PT TO KEEP HEEL PROPPED OFF OF BED ONTO PILLOW, PT VERBALIZED UNDERSTANDING. DENIES OTHER NEEDS. CL IN REACH, WILL CTM
[2019-06-06 00:50] VITALS: BP 111/66
[2019-06-06 04:47] VITALS: BP 101/54
[2019-06-06 06:49] LABS: ALBUMIN 1.5 g/dL (3.4-5.0); ALKALINE PHOSPHATASE 242 U/L (46-116); BILIRUBIN - TOTAL 0.28 mg/dL (0.2-1.3); CALCIUM 7.5 mg/dL (8.5-10.1); CARBON DIOXIDE 22.7 mmol/L (21.0-32.0); CHLORIDE - SERUM 110 mmol/L (98-107); POTASSIUM - SERUM 4.2 mmol/L (3.5-5.1); PROTEIN - SERUM 5.9 g/dL (6.4-8.2); SODIUM 140 mmol/L (136-145); UREA NITROGEN 9 mg/dL (7-18); eGFR NON AFRICAN AMERICAN 84 mL/min (90-120)
[2019-06-06 06:50] LABS: ALT (SGPT) 19 U/L (10-68); CALC OSMOLALITY 278 mosm/kg (275-300); GLUCOSE 112 mg/dL (74-106)
[2019-06-06 06:59] LABS: BASOPHILS 0.4 % (0-2); EOSINOPHILS 5.2 % (0-7); HEMOGLOBIN 8.9 g/dL (13.5-17.5); IMMATURE GRANULOCYTES 0.6 % (0-5); MCH 28.7 pg (26.0-34.0); MCV 87.1 fL (80.0-100.0); MEAN PLATELET VOLUME 8.2 fL (7.4-10.4); MONOCYTES 3.4 % (2-11); NEUTROPHILS 74.4 % (40-80); PLATELET COUNT 422 10x3/uL (130-400); RDW 17.4 % (11.5-14.5); WBC 14.9 10x3/uL (4.8-10.8)
[2019-06-06 09:48] VITALS: BP 83/53
--- NOTE | 2019-06-06 10:24 | NUR ---
PATIENT HAD A YELLOW GRITTY STOOL. ASSISTED WITH CLEANING HIM UP. APPLIED BABY POWDER TO SCROTUM AND CALMOSEPTINE TO HIS BOTTOM PER EMAR. CL IN REACH URINAL EMPTIED. FRESH WATER SUPPLIED WELL LOTION. SKIN IS RED AND SCALY ALL OVER. TM
--- NOTE | 2019-06-06 12:09 | NUR ---
PATIENT OUT OF ROOM.
--- NOTE | 2019-06-06 13:52 | NUR ---
Nutrition Follow Up: Chart reviewed Diet: ADA PO Intake: 72% meal avg BM: 06/05/19 Labs reviewed Meds noted including Flagyl Rec continue current diet. RD following.
--- NOTE | 2019-06-06 15:21 | NUR ---
PATIENT NOT IN ROOM
[2019-06-06 16:44] VITALS: BP 88/67
--- NOTE | 2019-06-06 19:30 | NUR ---
PT SITTING UP IN WHEELCHAIR LEAVING ROOM TO GO SMOKE. DENIES NEEDS.
[2019-06-06 21:58] VITALS: BP 121/85
--- NOTE | 2019-06-06 22:00 | NUR ---
PT SITTING UP IN BED PLAYING ON THE COMPUTER. FSBS 219, ADMINISTERED 2 UNITS OF REGULAR INSULIN AND 10 UNITS OF LEVEMIR. CLEANED UP AND CHANGED BED PADS FROM BOWEL MOVEMENT. CLEANED OFF PREVIOUSLY APPLIED CALMOSEPTINE AND REAPPLIED. DENIES ANY FURTHER NEEDS. BED LOW, RAILS UP X 2, CALL LIGHT IN REACH.
[2019-06-07 05:37] VITALS: BP 94/48
--- NOTE | 2019-06-07 05:41 | NUR ---
FSBS 46 GAVE ORANGE JUICE, GRAPE JUICE, PEANUT BUTTER AND CRACKERS.
[2019-06-07 08:05] LABS: BASOPHILS 0.5 % (0-2); EOSINOPHILS 5.8 % (0-7); HEMATOCRIT 25.8 % (42.0-54.0); HEMOGLOBIN 8.3 g/dL (13.5-17.5); IMMATURE GRANULOCYTES 0.5 % (0-5); LYMPHOCYTES 17.4 % (15-50); MCH 27.9 pg (26.0-34.0); MCHC 32.2 g/dL (31.0-37.0); MCV 86.9 fL (80.0-100.0); MEAN PLATELET VOLUME 8.3 fL (7.4-10.4); MONOCYTES 4.1 % (2-11); NEUTROPHILS 71.7 % (40-80); PLATELET COUNT 389 10x3/uL (130-400); RBC 2.97 10x6/uL (4.20-6.10); RDW 17.6 % (11.5-14.5); WBC 11.8 10x3/uL (4.8-10.8)
[2019-06-07 08:27] LABS: ALBUMIN 1.5 g/dL (3.4-5.0); ALKALINE PHOSPHATASE 236 U/L (46-116); ALT (SGPT) 20 U/L (10-68); BILIRUBIN - TOTAL 0.19 mg/dL (0.2-1.3); CALCIUM 7.4 mg/dL (8.5-10.1); CARBON DIOXIDE 24.2 mmol/L (21.0-32.0); CHLORIDE - SERUM 111 mmol/L (98-107); CREATININE - SERUM 0.8 mg/dL (0.6-1.3); PROTEIN - SERUM 5.9 g/dL (6.4-8.2); SODIUM 142 mmol/L (136-145); UREA NITROGEN 7 mg/dL (7-18); eGFR NON AFRICAN AMERICAN > 90 mL/min (90-120)
[2019-06-07 08:28] LABS: CALC OSMOLALITY 278 mosm/kg (275-300); GLUCOSE 63 mg/dL (74-106); POTASSIUM - SERUM 3.2 mmol/L (3.5-5.1)
--- NOTE | 2019-06-07 09:00 | NUR ---
ALERT AND ORIENTED WITH DRESSING INTACT TO RT. HIP. IVF INFUSING TO LT. F/A. CONTINUED ISOLATION AND UP ADLIB TO W/C. ERRYTHEMA NOTED TO COCCYX AND SCROTUM WITH CREAM APPLIED. ENCOURAGED TO USE CALLL LIGHT FOR ASSIST.
[2019-06-07 09:51] VITALS: BP 110/51
[2019-06-07 12:00] VITALS: BP 114/64
[2019-06-07] MEDS ORDERED: FLORAJEN3 CAPS460 MG PO (12:56)
[2019-06-07] MEDS ORDERED: LEVAQUIN750 MG PO (12:56)
[2019-06-07] MEDS ORDERED: Nicoderm [PBKC] TRANSDERM (12:57)
[2019-06-07] MEDS ORDERED: FLAGYL500 MG PO (12:57)
--- NOTE | 2019-06-07 14:22 | MORECARE ---
CASE MANAGEMENT DISCHARGE SUMMARY PATIENT: ELIE MARIA UNIT: [id number] ADM DATE: 05/24/19 AGE: 49 : 66 SEX: M ROOM/BED: D.2228 AUTHOR: DHEERAJ ELIZABETH PHYSICIAN: REFERRING PHYSICIAN: ALEENA TORRES DO DATE OF SERVICE: 06/07/19 Discharge Plan Patient Name: ELIE MARIA Facility: [facility]:[place] : 1970 Planned Disposition: Home with Home Health Anticipated Discharge Date: Discharge Date: Expected LOS: Initial Reviewer: [email or web address] Initial Review Date: 05/27/2019 Generated: 06/07/19 3:21 pm Comments DCP- Discharge Planning Updated by [id number]: Amy Scherer on 06/07/19 1:[address] Received order for discharge. Spoke with Susan at [facility] and clinical faxed. He is in agreement to discharge. Home with [facility]. DCP- Discharge Planning Updated by [id number]: Amy Scherer on 05/29/19 8:[address] Clinical faxed to [facility] for home IV antibiotic. I gave an order sheet to Juventino Crooks APN for Dr. Hdz when he knows what antibiotic the patient will likely go home on. CM will continue to follow and assist with discharge planning/needs. DCP- Discharge Planning Updated by [email or web address]: Amy Scherer on 05/27/19 2:[address] Patient Name: ELIE MARIA Admission Status: ER Accout number: [id number] Admission Date: 05-24-2019 : 1970 Admission Diagnosis:PSOAS MUSCLE ABSCESS Attending: ALEENA TORRES Current LOS: 3 Anticipated DC Date: Planned Disposition: Home with Home Health Primary Insurance: MEDICAID [place] Discharge Planning Comments: CM met with patient to complete initial dc planning assessment. CM educated patient on the CM role and verbal consent given by patient to complete assessment. Patient lives at home with his girlfriend (Maria Victoria). At discharge patient plans to return and feels this is a safe discharge. CM discussed availability of home health, rehab services, and medical equipment. Patient denied known discharge needs at this time. He has had home health with [facility] in the past and IV infusions with [facility] in the past. He states if he needs home health or IV infusions, he would like to use them again, MADHAVI form signed by his girlfriend per his request. CM will continue to follow and will assist as needed with dc plans/needs. Cell Pourer: Amy Scherer DCPIA - Discharge Planning Initial Assessment Updated by [email or web address]: Amy Scherer on 05/27/19 3:37 pm * Is the patient Alert and Oriented? Yes * How many steps to enter\exit or inside your home? 3/0 * PCP Dr. Pedro * Pharm[facility] on [address] * Preadmission Environment Home with Family * ADLs Partial Dependent * Partial ADLs (Assistance needed) Ambulation Medication Management * Equipment Other Rolling Walker Walker Wheelchair * Other Equipment Leg Prosthesis * List name and contact numbers for known caregivers / representatives who currently or will assist patient after discharge: Maria Victoria Encarnacion - girlfriend - [phone] * Verbal permission to speak to the caregivers and representatives has been obtained from the patient. Yes * Community resources currently utilized None * Please name any agencies selected above. [facility] is prosthesis provider * Additional services required to return to the preadmission environment? Yes * Can the patient safely return to the preadmission environment? Yes * Has this patient been hospitalized within the prior 30 days at any hospital? No External Providers External Provider: [facility] Next Contact Date: Service Request Date: Service Type: Resolution: Reviewer: Comments: Coverage Notice Reviewer: [id number] - Amy Scherer Notice Issued Date-Time: 05/27/2019 15:40 Notice Type: Patient Choice Letter Notice Delivered To: Patient Relationship to Patient: Self Ring Packer Name: Delivery Method: HAND - Hand Delivered My Days: Prior Verbal Notification: Recipient Understood Notice: Yes Recipient Signature: Yes Med Rec Note Co-signed by Attending: Coverage Notice Comment: MADHAVI for [facility] and [facility] infusions signed by Maria Victoria Encarnacion (girlfriend) per his request. Last DP export: 05/29/19 8:14 am Patient Name: ELIE MARIA Page [id number] at 1422 All edits/amendments must be made on the electronic document DICTATION DATE: 06/07/191420 GUNCOTTON PACKER: DM 06/07/191420 RPT#: [id number] DC DATE: STATUS: ADM IN [facility] [address] [place] [address] END OF REPORT
--- NOTE | 2019-06-07 15:19 | MORECARE ---
CASE MANAGEMENT DISCHARGE SUMMARY PATIENT: ELIE MARIA UNIT: [id number] ADM DATE: 05/24/19 AGE: 49 : 66 SEX: M ROOM/BED: D.2228 AUTHOR: DHEERAJ ELIZABETH PHYSICIAN: REFERRING PHYSICIAN: ALEENA TORRES DO DATE OF SERVICE: 06/07/19 Discharge Plan Patient Name: ELIE MARIA Facility: [facility]:[place] : 1970 Planned Disposition: Home with Home Health Anticipated Discharge Date: Discharge Date: Expected LOS: Initial Reviewer: [email or web address] Initial Review Date: 05/27/2019 Generated: 06/07/19 4:19 pm Comments DCP- Discharge Planning Updated by [id number]: Amy Scherer on 06/07/19 2:[address] I called Susan at [facility]. She states they can accept him but will not be able to see him until Monday. I have called Ray with [facility] to see if they can see him sooner. Home with [facility]. DCP- Discharge Planning Updated by [email or web address]: Amy Scherer on 06/07/19 1:[address] Received order for discharge. Spoke with Susan at [facility] and clinical faxed. He is in agreement to discharge. Home with [facility]. DCP- Discharge Planning Updated by [email or web address]: Amy Scherer on 05/29/19 8:[address] Clinical faxed to [facility] for home IV antibiotic. I gave an order sheet to Juventino Crooks APN for Dr. Hdz when he knows what antibiotic the patient will likely go home on. CM will continue to follow and assist with discharge planning/needs. DCP- Discharge Planning Updated by [email or web address]: Amy Scherer on 05/27/19 2:[address] Patient Name: ELIE MARIA Admission Status: ER Accout number: [id number] Admission Date: 05-24-2019 : 1970 Admission Diagnosis:PSOAS MUSCLE ABSCESS Attending: ALEENA TORRES Current LOS: 3 Anticipated DC Date: Planned Disposition: Home with Home Health Primary Insurance: MEDICAID [place] Discharge Planning Comments: CM met with patient to complete initial dc planning assessment. CM educated patient on the CM role and verbal consent given by patient to complete assessment. Patient lives at home with his girlfriend (Maria Victoria). At discharge patient plans to return and feels this is a safe discharge. CM discussed availability of home health, rehab services, and medical equipment. Patient denied known discharge needs at this time. He has had home health with [facility] in the past and IV infusions with [facility] in the past. He states if he needs home health or IV infusions, he would like to use them again, MADHAVI form signed by his girlfriend per his request. CM will continue to follow and will assist as needed with dc plans/needs. Guidance And Control System Engineer: Amy Scherer DCPIA - Discharge Planning Initial Assessment Updated by [email or web address]: Amy Scherer on 05/27/19 3:37 pm * Is the patient Alert and Oriented? Yes * How many steps to enter\exit or inside your home? 3/0 * PCP Dr. Pedro * Pharmacy [facility] * Preadmission Environment Home with Family * ADLs Partial Dependent * Partial ADLs (Assistance needed) Ambulation Medication Management * Equipment Other Rolling Walker Walker Wheelchair * Other Equipment Leg Prosthesis * List name and contact numbers for known caregivers / representatives who currently or will assist patient after discharge: Maria Victoria Encarnacion - girlfriend - [phone] * Verbal permission to speak to the caregivers and representatives has been obtained from the patient. Yes * Community resources currently utilized None * Please name any agencies selected above. [facility] is prosthesis provider * Additional services required to return to the preadmission environment? Yes * Can the patient safely return to the preadmission environment? Yes * Has this patient been hospitalized within the prior 30 days at any hospital? No Coverage Notice Reviewer: [id number] - Amy Scherer Notice Issued Date-Time: 05/27/2019 15:40 Notice Type: Patient Choice Letter Notice Delivered To: Patient Relationship to Patient: Self Database Administrator Name: Delivery Method: HAND - Hand Delivered My Days: Prior Verbal Notification: Recipient Understood Notice: Yes Recipient Signature: Yes Med Rec Note Co-signed by Attending: Coverage Notice Comment: MADHAVI for [facility] and [facility] IV infusions signed by Maria Victoria Encarnacion (girlfriend) per his request. Last DP export: 06/07/19 1:22 p Patient Name: ELIE MARIA Page [id number] at 1519 All edits/amendments must be made on the electronic document DICTATION DATE: 06/07/191518 PEOPLESOFT HR DEVELOPER: SHAUN 06/07/191518 RPT#: [id number] DC DATE: STATUS: ADM IN [facility] [address] [place] [address] END OF REPORT
--- NOTE | 2019-06-07 15:35 | NUR ---
IV DISCONTINUED AND VERBALIZED UNDERSTANDING OF DISCHARGE INSTRUCTIONS. PATIENT STABLE ON DISCHARGE UNDER CARE OF FAMILY.
--- NOTE | 2019-06-10 17:09 | MORECARE ---
CASE MANAGEMENT DISCHARGE SUMMARY PATIENT: ELIE MARIA UNIT: [id number] ADM DATE: 05/24/19 AGE: 49 : 66 SEX: M ROOM/BED: D.2228 AUTHOR: DHEERAJ ELIZABETH PHYSICIAN: REFERRING PHYSICIAN: ALEENA TORRES DO DATE OF SERVICE: 06/10/19 Discharge Plan Patient Name: ELIE MARIA Facility: [facility]:[place] : 1970 Planned Disposition: Home with Home Health Anticipated Discharge Date: Discharge Date: 06/07/2019 Expected LOS: 0 Initial Reviewer: [email or web address] Initial Review Date: 05/27/2019 Generated: 06/10/19 6:08 pm Comments DCP- Discharge Planning Updated by [email or web address]: Amy Scherer on 06/07/19 2:[address] I called Susan at [facility]. She states they can accept him but will not be able to see him until Monday. I have called Ray with [facility] to see if they can see him sooner. Home with [facility]. DCP- Discharge Planning Updated by [email or web address]: Amy Scherer on 06/07/19 1:[address] Received order for discharge. Spoke with Susan at [facility] and clinical faxed. He is in agreement to discharge. Home with [facility]. DCP- Discharge Planning Updated by [id number]: Amy Scherer on 05/29/19 8:[address] Clinical faxed to [facility] for home IV antibiotic. I gave an order sheet to Juventino Crooks APN for Dr. Hdz when he knows what antibiotic the patient will likely go home on. CM will continue to follow and assist with discharge planning/needs. DCP- Discharge Planning Updated by [email or web address]: Amy Scherer on 05/27/19 2:[address] Patient Name: ELIE MARIA Admission Status: ER Accout number: [id number] Admission Date: 05-24-2019 : 1970 Admission Diagnosis:PSOAS MUSCLE ABSCESS Attending: ALEENA TORRES Current LOS: 3 Anticipated DC Date: Planned Disposition: Home with Home Health Primary Insurance: MEDICAID [place] Discharge Planning Comments: CM met with patient to complete initial dc planning assessment. CM educated patient on the CM role and verbal consent given by patient to complete assessment. Patient lives at home with his girlfriend (Maria Victoria). At discharge patient plans to return and feels this is a safe discharge. CM discussed availability of home health, rehab services, and medical equipment. Patient denied known discharge needs at this time. He has had home health with [facility] in the past and IV infusions with [facility] in the past. He states if he needs home health or IV infusions, he would like to use them again, MADHAVI form signed by his girlfriend per his request. CM will continue to follow and will assist as needed with dc plans/needs. Corporate Legal Assistant: Amy Scherer DCPIA - Discharge Planning Initial Assessment Updated by [email or web address]: Amy Scherer on 05/27/19 3:37 pm * Is the patient Alert and Oriented? Yes * How many steps to enter\exit or inside your home? 3/0 * PCP Dr. Pedro * Pharmacy [facility] on [facility] * Preadmission Environment Home with Family * ADLs Partial Dependent * Partial ADLs (Assistance needed) Ambulation Medication Management * Equipment Other Rolling Walker Walker Wheelchair * Other Equipment Leg Prosthesis * List name and contact numbers for known caregivers / representatives who currently or will assist patient after discharge: Maria Victoria Encarnacion - girlfriend - [phone] * Verbal permission to speak to the caregivers and representatives has been obtained from the patient. Yes * Community resources currently utilized None * Please name any agencies selected above. [facility] is prosthesis provider * Additional services required to return to the preadmission environment? Yes * Can the patient safely return to the preadmission environment? Yes * Has this patient been hospitalized within the prior 30 days at any hospital? No Coverage Notice Reviewer: [id number] - Amy Scherer Notice Issued Date-Time: 05/27/2019 15:40 Notice Type: Patient Choice Letter Notice Delivered To: Patient Relationship to Patient: Self Tribal Council Member Name: Delivery Method: HAND - Hand Delivered My Days: Prior Verbal Notification: Recipient Understood Notice: Yes Recipient Signature: Yes Med Rec Note Co-signed by Attending: Coverage Notice Comment: MADHAVI for [facility] and [facility] IV infusions signed by Maria Victoria Encarnacion (girlfriend) per his request. Last DP export: 06/07/19 2:19 p Patient Name: ELIE MARIA Page [id number] at 1709 All edits/amendments must be made on the electronic document DICTATION DATE: 06/10/191707 CRYPTOGRAPHY TEACHER: SHAUN 06/10/191707 RPT#: [id number] DC DATE:06/07/19 STATUS: DIS IN [facility] [address] [place] [address] END OF REPORT
== END 2019-06-07 15:45 | disposition home health service (06) | DRG 371 ==
LOC: D.ER 16:26 → D.MS 19:06
PROVIDERS: Family Medicine; General Practice; Internal Medicine Nephrology; ADMIT Family Medicine; ATTEND Family Medicine
PROC: 0K9P30Z Drainage of Left Hip Muscle with Drainage Device, Percutaneous Approach (ICD-10-PCS; principal; 2019-05-27 15:50)
DX: K68.12 Psoas muscle abscess (principal); N15.1 Renal and perinephric abscess; K68.19 Other retroperitoneal abscess; N13.30 Unspecified hydronephrosis; I50.32 Chronic diastolic (congestive) heart failure; F17.213 Nicotine dependence, cigarettes, with withdrawal; E44.0 Moderate protein-calorie malnutrition; Z68.1 Body mass index [BMI] 19.9 or less, adult; A04.72 Enterocolitis due to Clostridium difficile, not specified as recurrent; M60.88 Other myositis, other site; E11.9 Type 2 diabetes mellitus without complications; E11.65 Type 2 diabetes mellitus with hyperglycemia

== ENCOUNTER 2019-06-13 16:04 | Inpatient (IN) | payer MEDICAID ==
[~2019-06-13] VITALS: Ht 175.3 cm; Wt 54.4 kg
[2019-06-13] VITALS (7 sets, daily range): BP systolic 106–132; BP diastolic 66–82; BMI 17.7
[~2019-06-13 16:04] MED LIST changes: +FLORAJEN3 CAPS460 MG PO; +Nicoderm [PBKC] TRANSDERM
[2019-06-13 18:05] LABS: ALBUMIN 1.8 g/dL (3.4-5.0); ALKALINE PHOSPHATASE 188 U/L (46-116); ALT (SGPT) 7 U/L (10-68); BILIRUBIN - TOTAL 0.29 mg/dL (0.2-1.3); CALCIUM 7.5 mg/dL (8.5-10.1); CARBON DIOXIDE 27.2 mmol/L (21.0-32.0); CHLORIDE - SERUM 103 mmol/L (98-107); CREATININE - SERUM 0.8 mg/dL (0.6-1.3); POTASSIUM - SERUM 3.6 mmol/L (3.5-5.1); PROTEIN - SERUM 7.2 g/dL (6.4-8.2); SODIUM 138 mmol/L (136-145); UREA NITROGEN 3 mg/dL (7-18); eGFR NON AFRICAN AMERICAN > 90 mL/min (90-120)
[2019-06-13 18:08] LABS: CREATINE KINASE 43 UL (21-232)
[2019-06-13 18:14] LABS: CALC OSMOLALITY 273 mosm/kg (275-300); GLUCOSE 114 mg/dL (74-106); TROPONIN-I < 0.017 ng/mL (0.000-0.060)
[2019-06-13 18:24] LABS: BASOPHILS 0.9 % (0-2); EOSINOPHILS 2.8 % (0-7); HEMATOCRIT 26.7 % (42.0-54.0); IMMATURE GRANULOCYTES 0.6 % (0-5); LYMPHOCYTES 12.8 % (15-50); MCHC 33.7 g/dL (31.0-37.0); MCV 83.2 fL (80.0-100.0); MEAN PLATELET VOLUME 8.6 fL (7.4-10.4); MONOCYTES 9.9 % (2-11); PLATELET COUNT 421 10x3/uL (130-400); RBC 3.21 10x6/uL (4.20-6.10); RDW 16.2 % (11.5-14.5); WBC 12.9 10x3/uL (4.8-10.8)
[2019-06-13 18:28] LABS: APTT 32.1 SECONDS (22.8-39.4); INR 1.15 (0.85-1.17); PROTIME 14.2 SECONDS (11.6-15.0)
[2019-06-13 18:40] LABS: APPEARANCE CLEAR (CLEAR); BACTERIA MODERATE /hpf (NONE SEEN); BILIRUBIN NEGATIVE (NEGATIVE); COLOR YELLOW (YELLOW); GLUCOSE NEGATIVE (NEGATIVE); KETONE NEGATIVE (NEGATIVE); NITRITE NEGATIVE (NEGATIVE); PROTEIN NEGATIVE (NEGATIVE); RED CELLS - URINE 0-5 /hpf (0-5); SPECIFIC GRAVITY 1.005 (1.005-1.020); UROBILINOGEN NORMAL (NORMAL)
[2019-06-14] VITALS (24 sets, daily range): BP systolic 113–160; BP diastolic 60–96; Ht 175.3 cm; Wt 54.4 kg
[2019-06-14 03:57] LABS: BASOPHILS 0.4 % (0-2); EOSINOPHILS 0.9 % (0-7); HEMATOCRIT 25.1 % (42.0-54.0); HEMOGLOBIN 8.5 g/dL (13.5-17.5); IMMATURE GRANULOCYTES 0.4 % (0-5); MCH 28.6 pg (26.0-34.0); MCHC 33.9 g/dL (31.0-37.0); MCV 84.5 fL (80.0-100.0); MEAN PLATELET VOLUME 8.6 fL (7.4-10.4); MONOCYTES 4.7 % (2-11); NEUTROPHILS 88.6 % (40-80); PLATELET COUNT 381 10x3/uL (130-400); RBC 2.97 10x6/uL (4.20-6.10); RDW 16.7 % (11.5-14.5)
[2019-06-14 04:05] LABS: WBC 17.1 10x3/uL (4.8-10.8)
[2019-06-14 04:16] LABS: ALBUMIN 1.5 g/dL (3.4-5.0); ALKALINE PHOSPHATASE 158 U/L (46-116); CARBON DIOXIDE 25.7 mmol/L (21.0-32.0); CHLORIDE - SERUM 106 mmol/L (98-107); CREATININE - SERUM 0.7 mg/dL (0.6-1.3); MAGNESIUM - SERUM 1.4 mg/dL (1.8-2.4); PHOSPHOROUS 2.6 mg/dL (2.5-4.9); PRO BNP 2750 pg/mL (0-125); SODIUM 141 mmol/L (136-145); UREA NITROGEN 3 mg/dL (7-18); eGFR NON AFRICAN AMERICAN > 90 mL/min (90-120)
[2019-06-14 04:26] LABS: CALC OSMOLALITY 284 mosm/kg (275-300); GLUCOSE 217 mg/dL (74-106)
[2019-06-14 04:28] LABS: ALT (SGPT) 2 U/L (10-68); CALCIUM 6.9 mg/dL (8.5-10.1)
[2019-06-14 04:29] LABS: POTASSIUM - SERUM 2.7 mmol/L (3.5-5.1)
--- NOTE | 2019-06-14 16:52 | EC ---
PATIENT:ELIE MARIA DATE OF SERVICE: 06/13/19 SEX: M MEDICAL RECORD: [id number] DATE OF : [birth year] LOCATION:[place] [address] AGE OF PATIENT: 49 ADMISSION DATE: 06/13/19 REFERRING PHYSICIAN: INTERPRETING PHYSICIAN: PRERNA PABON MD ECHOCARDIOGRAM REPORT ECHO CHARGES 4 ECHO COMPLETE Date: 06/14/19 CLINICAL DIAGNOSIS: H/O CHF/ABNORMAL EKG ECHOCARDIOGRAPHIC MEASUREMENTS (adult normal given) AC root (d.<3.7cm) 3.1 cm LV Septum d (<1.2 cm> 0.9 cm Valve Excursion 1.9 cm LV Septum (systole) 1.4 cm Left Atria (s.<4.0cm> 3.3 cm LVPW d(<1.2cm) 0.9 cm RV (d.<2.3cm) 2.4 cm LVPW (sytole) 1.2 cm LV diastole(<5.6CM) 6.4 cm MV E-F(>70mm/sec) cm LV systole 4.6 cm LVOT Diameter 2.1 cm MV exc.(>10mm) cm Est.ejection fraction (50-75%) % DOPPLER: LVIT cm/sec A 50.0 cm/sec E 115 cm/sec LA cm/sec RVSP 18.0 mmHg LVOT 100 cm/sec AOP1/2T m/s Asc. Ao cm/sec RVOT 56.0 cm/sec RA cm/sec PA 94.0 cm/sec AV Gradient Peak mmHg AV Mean mmHg AV Area cm MV Gradient Peak 7.5 mmHg MV Mean 3.5 mmHg MV Area cm COMMENTS: Gizzard Skin Remover: 1 MELIA OROZCOOE Supervisor Vegetable Farming: 1 Dr. Pabon TAPE# PACS Pericardial Effusion N DATE OF SERVICE: FINDINGS: 1. Left ventricular chamber size is mildly dilated. Left ventricular systolic function is mildly depressed. Overall ejection fraction 40%. 2. Left atrium, right atrium, and right ventricle chamber sizes are within normal limits. 3. Valvular structures have normal structure and motion. 4. Doppler interrogation reveals no significant valvular insufficiency or stenosis and pulmonary systolic pressure is normal estimated at 18 mmHg. ECHOCARDIOGRAM REPORT [id number] ELIE MARIA 5. No evidence of pericardial effusion or left ventricular thrombus. TRANSINT:[id number] Voice Confirmation ID: [id number] DOCUMENT ID: [id number] PRERNA PABON MD at 1652 CC: [id number] DICTATION DATE: 06/14/19 1307 VERIFYING SPECIALIST: 06/14/19 1318 ADM IN [facility] [address] [place] [id number]
[2019-06-14 18:22] LABS: UDS - AMPHET NEGATIVE QUAL (NEGATIVE); UDS - BARB NEGATIVE QUAL (NEGATIVE); UDS - BENZO NEGATIVE QUAL (NEGATIVE); UDS - COCAINE NEGATIVE QUAL (NEGATIVE); UDS - OPIATE NEGATIVE QUAL (NEGATIVE); UDS - PCP NEGATIVE QUAL (NEGATIVE); UDS - THC NEGATIVE QUAL (NEGATIVE)
[2019-06-15] VITALS (32 sets, daily range): BP systolic 108–139; BP diastolic 59–93
[2019-06-15 03:13] LABS: BASOPHILS 0.4 % (0-2); EOSINOPHILS 1.1 % (0-7); HEMATOCRIT 23.8 % (42.0-54.0); HEMOGLOBIN 7.8 g/dL (13.5-17.5); IMMATURE GRANULOCYTES 0.4 % (0-5); LYMPHOCYTES 6.5 % (15-50); MCH 28.2 pg (26.0-34.0); MCHC 32.8 g/dL (31.0-37.0); MCV 85.9 fL (80.0-100.0); MEAN PLATELET VOLUME 8.4 fL (7.4-10.4); MONOCYTES 7.7 % (2-11); NEUTROPHILS 83.9 % (40-80); PLATELET COUNT 391 10x3/uL (130-400); RBC 2.77 10x6/uL (4.20-6.10); RDW 17.3 % (11.5-14.5); WBC 18.8 10x3/uL (4.8-10.8)
[2019-06-15 03:29] LABS: ALBUMIN 1.4 g/dL (3.4-5.0); ALKALINE PHOSPHATASE 140 U/L (46-116); BILIRUBIN - TOTAL 0.43 mg/dL (0.2-1.3); CALC OSMOLALITY 285 mosm/kg (275-300); CARBON DIOXIDE 26.8 mmol/L (21.0-32.0); CHLORIDE - SERUM 109 mmol/L (98-107); CREATININE - SERUM 0.7 mg/dL (0.6-1.3); GLUCOSE 178 mg/dL (74-106); MAGNESIUM - SERUM 1.6 mg/dL (1.8-2.4); PHOSPHOROUS 2.3 mg/dL (2.5-4.9); POTASSIUM - SERUM 3.4 mmol/L (3.5-5.1); PROTEIN - SERUM 5.8 g/dL (6.4-8.2); SODIUM 143 mmol/L (136-145); UREA NITROGEN 3 mg/dL (7-18); VANCOMYCIN - RANDOM 7.1 ug/mL (10.0-20.0); eGFR NON AFRICAN AMERICAN > 90 mL/min (90-120)
[2019-06-15 03:30] LABS: ALT (SGPT) 5 U/L (10-68); CALCIUM 6.9 mg/dL (8.5-10.1)
[2019-06-16] VITALS (13 sets, daily range): BP systolic 103–139; BP diastolic 51–81
[2019-06-16 05:19] LABS: HEMOGLOBIN 7.8 g/dL (13.5-17.5); MCH 28.1 pg (26.0-34.0); MCHC 32.5 g/dL (31.0-37.0); MCV 86.3 fL (80.0-100.0); MEAN PLATELET VOLUME 8.5 fL (7.4-10.4); PLATELET COUNT 455 10x3/uL (130-400); RBC 2.78 10x6/uL (4.20-6.10); RDW 17.5 % (11.5-14.5); WBC 21.2 10x3/uL (4.8-10.8)
[2019-06-16 05:35] LABS: ALBUMIN 1.3 g/dL (3.4-5.0); ALKALINE PHOSPHATASE 149 U/L (46-116); ALT (SGPT) 6 U/L (10-68); BILIRUBIN - TOTAL 0.42 mg/dL (0.2-1.3); CALCIUM 7.1 mg/dL (8.5-10.1); CARBON DIOXIDE 27.2 mmol/L (21.0-32.0); CHLORIDE - SERUM 112 mmol/L (98-107); CREATININE - SERUM 0.7 mg/dL (0.6-1.3); PHOSPHOROUS 1.8 mg/dL (2.5-4.9); POTASSIUM - SERUM 3.1 mmol/L (3.5-5.1); PROTEIN - SERUM 5.8 g/dL (6.4-8.2); SODIUM 145 mmol/L (136-145); VANCOMYCIN - TROUGH 13.9 ug/mL (10.0-20.0); eGFR NON AFRICAN AMERICAN > 90 mL/min (90-120)
[2019-06-16 05:38] LABS: CALC OSMOLALITY 283 mosm/kg (275-300); GLUCOSE 62 mg/dL (74-106); UREA NITROGEN 4 mg/dL (7-18)
[2019-06-16 05:44] LABS: EOSINOPHILS 3 % (0-7); LYMPHOCYTES 11 % (15-50); NEUTROPHILS 86 % (40-80); PLATELET ESTIMATE NORMAL
[2019-06-17 05:56] LABS: BASOPHILS 0.5 % (0-2); EOSINOPHILS 10.8 % (0-7); HEMATOCRIT 24.7 % (42.0-54.0); HEMOGLOBIN 8.1 g/dL (13.5-17.5); IMMATURE GRANULOCYTES 0.3 % (0-5); LYMPHOCYTES 11.7 % (15-50); MCH 28.4 pg (26.0-34.0); MCHC 32.8 g/dL (31.0-37.0); MCV 86.7 fL (80.0-100.0); MEAN PLATELET VOLUME 8.4 fL (7.4-10.4); MONOCYTES 7.4 % (2-11); NEUTROPHILS 69.3 % (40-80); PLATELET COUNT 442 10x3/uL (130-400); RBC 2.85 10x6/uL (4.20-6.10); RDW 16.7 % (11.5-14.5)
[2019-06-17 05:59] LABS: WBC 15.4 10x3/uL (4.8-10.8)
[2019-06-17 06:17] LABS: ALBUMIN 1.2 g/dL (3.4-5.0); ALKALINE PHOSPHATASE 138 U/L (46-116); CALCIUM 7.1 mg/dL (8.5-10.1); CARBON DIOXIDE 27.9 mmol/L (21.0-32.0); CHLORIDE - SERUM 114 mmol/L (98-107); CREATININE - SERUM 0.8 mg/dL (0.6-1.3); MAGNESIUM - SERUM 1.8 mg/dL (1.8-2.4); PHOSPHOROUS 2.2 mg/dL (2.5-4.9); PROTEIN - SERUM 5.5 g/dL (6.4-8.2); SODIUM 147 mmol/L (136-145); UREA NITROGEN 5 mg/dL (7-18); eGFR NON AFRICAN AMERICAN > 90 mL/min (90-120)
[2019-06-17 06:18] LABS: CALC OSMOLALITY 288 mosm/kg (275-300); GLUCOSE 107 mg/dL (74-106)
[2019-06-17 06:19] LABS: ALT (SGPT) 6 U/L (10-68); POTASSIUM - SERUM 2.6 mmol/L (3.5-5.1)
[2019-06-17 12:15] VITALS: BP 99/53
[2019-06-17 16:58] VITALS: BP 119/69
[2019-06-17 20:19] VITALS: BP 142/61
[2019-06-18 04:31] VITALS: BP 154/74
[2019-06-18 04:51] LABS: BASOPHILS 0.8 % (0-2); EOSINOPHILS 16.4 % (0-7); HEMATOCRIT 23.4 % (42.0-54.0); HEMOGLOBIN 7.7 g/dL (13.5-17.5); IMMATURE GRANULOCYTES 0.9 % (0-5); LYMPHOCYTES 17.9 % (15-50); MCH 28.2 pg (26.0-34.0); MCHC 32.9 g/dL (31.0-37.0); MCV 85.7 fL (80.0-100.0); MEAN PLATELET VOLUME 8.6 fL (7.4-10.4); MONOCYTES 9.5 % (2-11); NEUTROPHILS 54.5 % (40-80); PLATELET COUNT 404 10x3/uL (130-400); RBC 2.73 10x6/uL (4.20-6.10); RDW 16.8 % (11.5-14.5)
[2019-06-18 04:55] LABS: WBC 11.2 10x3/uL (4.8-10.8)
[2019-06-18 05:07] LABS: ALBUMIN 1.2 g/dL (3.4-5.0); ALKALINE PHOSPHATASE 143 U/L (46-116); ALT (SGPT) 6 U/L (10-68); BILIRUBIN - TOTAL 0.28 mg/dL (0.2-1.3); CARBON DIOXIDE 27.7 mmol/L (21.0-32.0); CHLORIDE - SERUM 110 mmol/L (98-107); CREATININE - SERUM 0.7 mg/dL (0.6-1.3); MAGNESIUM - SERUM 1.6 mg/dL (1.8-2.4); PHOSPHOROUS 2.1 mg/dL (2.5-4.9); PROTEIN - SERUM 5.5 g/dL (6.4-8.2); SODIUM 143 mmol/L (136-145); UREA NITROGEN 4 mg/dL (7-18); eGFR NON AFRICAN AMERICAN > 90 mL/min (90-120)
[2019-06-18 05:11] LABS: CALC OSMOLALITY 284 mosm/kg (275-300); GLUCOSE 155 mg/dL (74-106)
[2019-06-18 05:12] LABS: CALCIUM 6.9 mg/dL (8.5-10.1); POTASSIUM - SERUM 2.1 mmol/L (3.5-5.1)
[2019-06-18 08:32] VITALS: BP 145/69
[2019-06-18 13:15] VITALS: BP 135/69
[2019-06-18 14:47] LABS: MAGNESIUM - SERUM 1.5 mg/dL (1.8-2.4)
[2019-06-18 15:01] LABS: POTASSIUM - SERUM 2.7 mmol/L (3.5-5.1)
[2019-06-18 17:33] VITALS: BP 135/66
[2019-06-18 21:14] VITALS: BP 114/64
[2019-06-18 23:52] LABS: MAGNESIUM - SERUM 1.6 mg/dL (1.8-2.4); POTASSIUM - SERUM 3.1 mmol/L (3.5-5.1)
[2019-06-19 01:27] VITALS: BP 164/78
[2019-06-19 05:05] VITALS: BP 148/60
[2019-06-19 06:33] LABS: EOSINOPHILS 18.9 % (0-7); HEMATOCRIT 27.7 % (42.0-54.0); IMMATURE GRANULOCYTES 0.4 % (0-5); LYMPHOCYTES 16.8 % (15-50); MCH 28.8 pg (26.0-34.0); MCHC 33.9 g/dL (31.0-37.0); MEAN PLATELET VOLUME 8.7 fL (7.4-10.4); NEUTROPHILS 52.9 % (40-80); PLATELET COUNT 337 10x3/uL (130-400); RBC 3.26 10x6/uL (4.20-6.10); RDW 16.6 % (11.5-14.5); WBC 11.4 10x3/uL (4.8-10.8)
[2019-06-19 07:02] LABS: ALBUMIN 1.1 g/dL (3.4-5.0); ALKALINE PHOSPHATASE 129 U/L (46-116); BILIRUBIN - TOTAL 0.55 mg/dL (0.2-1.3); CARBON DIOXIDE 27.8 mmol/L (21.0-32.0); CHLORIDE - SERUM 112 mmol/L (98-107); CREATININE - SERUM 0.6 mg/dL (0.6-1.3); PROTEIN - SERUM 5.3 g/dL (6.4-8.2); SODIUM 145 mmol/L (136-145); UREA NITROGEN 3 mg/dL (7-18); eGFR NON AFRICAN AMERICAN > 90 mL/min (90-120)
[2019-06-19 07:05] LABS: CALC OSMOLALITY 281 mosm/kg (275-300); GLUCOSE 33 mg/dL (74-106); POTASSIUM - SERUM 2.8 mmol/L (3.5-5.1)
[2019-06-19 07:06] LABS: ALT (SGPT) 8 U/L (10-68); CALCIUM 6.8 mg/dL (8.5-10.1)
[2019-06-19 07:25] LABS: HEMOGLOBIN 9.4 g/dL (13.5-17.5)
[2019-06-19 09:10] VITALS: BP 125/66
[2019-06-19 12:03] VITALS: BP 124/70
--- NOTE | 2019-06-19 14:42 | MORECARE ---
CASE MANAGEMENT DISCHARGE SUMMARY PATIENT: ELIE MARIA UNIT: [id number] ADM DATE: 06/13/19 AGE: 49 : [birth year] SEX: M ROOM/BED: D.2236 AUTHOR: DHEERAJ ELIZABETH PHYSICIAN: REFERRING PHYSICIAN: SAMANTHA BONILLA MD DATE OF SERVICE: 06/19/19 Discharge Plan Patient Name: ELIE MARIA [facility] [facility] 1970 Planned Disposition: Home Hlth Svc w Plan Readm Anticipated Discharge Date: Discharge Date: Expected LOS: Initial Reviewer: [email or web address] Initial Review Date: 06/19/2019 Generated: 06/19/19 3:42 pm Patient Name: ELIE MARIA Page [phone] at 1442 All edits/amendments must be made on the electronic document DICTATION DATE: 06/19/191441 SUBSTATION OPERATOR APPRENTICE: SHAUN 06/19/19 1442 RPT#: [id number] DC DATE: STATUS: ADM IN [facility] [address] [place] [address] END OF REPORT
--- NOTE | 2019-06-19 14:51 | MORECARE ---
CASE MANAGEMENT DISCHARGE SUMMARY PATIENT: ELIE MARIA UNIT: [id number] ADM DATE: 06/13/19 AGE: 49 : 66 SEX: M ROOM/BED: D.2236 AUTHOR: DHEERAJ ELIZABETH PHYSICIAN: REFERRING PHYSICIAN: SAMANTHA BONILLA MD DATE OF SERVICE: 06/19/19 Discharge Plan Patient Name: ELIE MARIA Facility: [facility]:[place] : 1970 Planned Disposition: Home Hlth Svc w Plan Readm Anticipated Discharge Date: Discharge Date: Expected LOS: Initial Reviewer: [email or web address] Initial Review Date: 06/19/2019 Generated: 06/19/19 3:51 pm DCPIA - Discharge Planning Initial Assessment Updated by [email or web address]: Amy Scherer on 06/19/19 2:47 pm * Is the patient Alert and Oriented? Yes * How many steps to enter\exit or inside your home? 3/0 * PCP Dr. Pedro * Pharmacy [facility] on [facility] * Preadmission Environment Home with Family * ADLs Partial Dependent * Partial ADLs (Assistance needed) Ambulation Medication Management * Equipment Rolling Walker Walker Wheelchair * List name and contact numbers for known caregivers / representatives who currently or will assist patient after discharge: Maria Victoria Encarnacion - [phone] * Verbal permission to speak to the caregivers and representatives has been obtained from the patient. Yes * Community resources currently utilized Home Health * Please name any agencies selected above. [facility] * Additional services required to return to the preadmission environment? No * Can the patient safely return to the preadmission environment? Yes * Has this patient been hospitalized within the prior 30 days at any hospital? Yes Last DP export: 06/19/19 1:42 p Patient Name: ELIE MARIA Page 75687 at 1451 All edits/amendments must be made on the electronic document DICTATION DATE: 06/19/19 145 SHEET CATCHER: SHAUN 06/19/19 145 RPT#: [id number] DC DATE: STATUS: ADM IN [facility] [address] [place] [address] END OF REPORT
--- NOTE | 2019-06-19 15:00 | MORECARE ---
CASE MANAGEMENT DISCHARGE SUMMARY PATIENT: ELIE MARIA UNIT: [id number] ADM DATE: 06/13/19 AGE: 49 : 66 SEX: M ROOM/BED: D.2236 AUTHOR: DHEERAJ ELIZABETH PHYSICIAN: REFERRING PHYSICIAN: SAMANTHA BONILLA MD DATE OF SERVICE: 06/19/19 Discharge Plan Patient Name: ELIE MARIA Facility: [facility]:[place] : 1970 Planned Disposition: Home Hlth Svc w Plan Readm Anticipated Discharge Date: Discharge Date: Expected LOS: Initial Reviewer: [email or web address] Initial Review Date: 06/19/2019 Generated: 06/19/19 4:00 pm Comments DCP- Discharge Planning Updated by [email or web address]: Amy Scherer on 06/19/19 1:[address] Patient Name: ELIE MARIA Admission Status: ER Accout number: [id number] Admission Date: 06-13-2019 : 1970 Admission Diagnosis:URINARY TRACT INFECTION, SITE NOT SPECIFIED Attending: SAMANTHA BONILLA Current LOS: 6 Anticipated DC Date: Planned Disposition: Home Hlth Svc w Plan Readm Primary Insurance: MEDICAID [place] Discharge Planning Comments: CM met with patient to discuss discharge planning, he is alone in the room. He states he is ready to go home. He lives with his girlfriend. He states nothing has changed since he was here last time. States his girlfriend will pick him up. I spoke with Kat at [facility] and they will resume on discharge. CM will continue to follow and assist with discharge planning/needs. Business Liaison Officer: Amy Scherer DCPIA - Discharge Planning Initial Assessment Updated by [email or web address]: Amy Scherer on 06/19/19 2:47 pm * Is the patient Alert and Oriented? Yes * How many steps to enter\exit or inside your home? 3/0 * PCP Dr. Pedro * [facility] on [address] * Preadmission Environment Home with Family * ADLs Partial Dependent * Partial ADLs (Assistance needed) Ambulation Medication Management * Equipment Rolling Walker Walker Wheelchair * List name and contact numbers for known caregivers / representatives who currently or will assist patient after discharge: Maria Victoria Encarnacion - [phone] * Verbal permission to speak to the caregivers and representatives has been obtained from the patient. Yes * Community resources currently utilized Home Health * Please name any agencies selected above. [facility] * Additional services required to return to the preadmission environment? No * Can the patient safely return to the preadmission environment? Yes * Has this patient been hospitalized within the prior 30 days at any hospital? Yes External Providers [facility] Next Contact Date: Service Request Date: Service Type: Resolution: Reviewer: Comments: Coverage Notice Reviewer: [id number] Chaparro Whitey Gilmer Notice Issued Date-Time: 06/19/2019 14:53 Notice Type: Patient Choice Letter Notice Delivered To: Patient Relationship to Patient: Self Superintendent Construction Name: Delivery Method: HAND - Hand Delivered My Days: Prior Verbal Notification: Recipient Understood Notice: Yes Recipient Signature: Yes Med Rec Note Co-signed by Attending: Coverage Notice Comment: MADHAVI for [facility] Last DP export: 06/19/19 1:51 p Patient Name: ELIE MARIA Page [id number] at 1500 All edits/amendments must be made on the electronic document DICTATION DATE: 06/19/19 1500 HEALTHCARE FACILITY ADMINISTRATOR: SHAUN 06/19/19 1500 RPT#: [id number] DC DATE: STATUS: ADM IN [facility] [address] [place] [address] END OF REPORT
[2019-06-19 20:33] VITALS: BP 109/68
[2019-06-20 00:47] VITALS: BP 107/65
[2019-06-20 05:02] LABS: BASOPHILS 0.6 % (0-2); EOSINOPHILS 19.3 % (0-7); HEMATOCRIT 27.6 % (42.0-54.0); HEMOGLOBIN 9.3 g/dL (13.5-17.5); IMMATURE GRANULOCYTES 0.7 % (0-5); LYMPHOCYTES 27.2 % (15-50); MCH 28.6 pg (26.0-34.0); MCHC 33.7 g/dL (31.0-37.0); MCV 84.9 fL (80.0-100.0); MEAN PLATELET VOLUME 8.9 fL (7.4-10.4); MONOCYTES 11.6 % (2-11); NEUTROPHILS 40.6 % (40-80); PLATELET COUNT 307 10x3/uL (130-400); RBC 3.25 10x6/uL (4.20-6.10); RDW 16.8 % (11.5-14.5); WBC 9.7 10x3/uL (4.8-10.8)
[2019-06-20 05:10] VITALS: BP 112/60
[2019-06-20 05:27] LABS: ALBUMIN 1.2 g/dL (3.4-5.0); ALKALINE PHOSPHATASE 135 U/L (46-116); BILIRUBIN - TOTAL 0.25 mg/dL (0.2-1.3); CARBON DIOXIDE 30.5 mmol/L (21.0-32.0); CHLORIDE - SERUM 109 mmol/L (98-107); CREATININE - SERUM 0.6 mg/dL (0.6-1.3); PROTEIN - SERUM 5.4 g/dL (6.4-8.2); SODIUM 141 mmol/L (136-145); UREA NITROGEN 3 mg/dL (7-18); eGFR NON AFRICAN AMERICAN > 90 mL/min (90-120)
[2019-06-20 05:32] LABS: CALC OSMOLALITY 277 mosm/kg (275-300); GLUCOSE 99 mg/dL (74-106)
[2019-06-20 05:33] LABS: ALT (SGPT) 6 U/L (10-68); CALCIUM 6.7 mg/dL (8.5-10.1); POTASSIUM - SERUM 2.9 mmol/L (3.5-5.1)
[2019-06-20 08:20] VITALS: BP 169/95
[2019-06-20 10:43] LABS: MAGNESIUM - SERUM 1.6 mg/dL (1.8-2.4); PHOSPHOROUS 1.6 mg/dL (2.5-4.9)
[2019-06-20 13:08] VITALS: BP 114/72
[2019-06-20 16:33] VITALS: BP 97/63
[2019-06-20 18:13] LABS: MAGNESIUM - SERUM 2.2 mg/dL (1.8-2.4); POTASSIUM - SERUM 3.8 mmol/L (3.5-5.1)
[2019-06-20 21:48] VITALS: BP 118/73
[2019-06-21 01:27] VITALS: BP 124/80
[2019-06-21 05:14] LABS: BASOPHILS 0.9 % (0-2); EOSINOPHILS 18.7 % (0-7); HEMATOCRIT 28.4 % (42.0-54.0); HEMOGLOBIN 9.5 g/dL (13.5-17.5); IMMATURE GRANULOCYTES 0.9 % (0-5); MCH 28.6 pg (26.0-34.0); MCHC 33.5 g/dL (31.0-37.0); MCV 85.5 fL (80.0-100.0); MEAN PLATELET VOLUME 8.8 fL (7.4-10.4); MONOCYTES 11.4 % (2-11); NEUTROPHILS 40.1 % (40-80); PLATELET COUNT 313 10x3/uL (130-400); RBC 3.32 10x6/uL (4.20-6.10); WBC 10.3 10x3/uL (4.8-10.8)
[2019-06-21 05:22] LABS: ALBUMIN 1.2 g/dL (3.4-5.0); ALKALINE PHOSPHATASE 138 U/L (46-116); BILIRUBIN - TOTAL 0.24 mg/dL (0.2-1.3); CARBON DIOXIDE 27.7 mmol/L (21.0-32.0); CHLORIDE - SERUM 109 mmol/L (98-107); CREATININE - SERUM 0.7 mg/dL (0.6-1.3); GLUCOSE 128 mg/dL (74-106); MAGNESIUM - SERUM 1.9 mg/dL (1.8-2.4); PHOSPHOROUS 1.6 mg/dL (2.5-4.9); POTASSIUM - SERUM 3.5 mmol/L (3.5-5.1); PROTEIN - SERUM 5.7 g/dL (6.4-8.2); SODIUM 142 mmol/L (136-145); eGFR NON AFRICAN AMERICAN > 90 mL/min (90-120)
[2019-06-21 05:24] LABS: ALT (SGPT) 10 U/L (10-68); CALC OSMOLALITY 281 mosm/kg (275-300); UREA NITROGEN 4 mg/dL (7-18)
[2019-06-21 06:07] VITALS: BP 118/71
[2019-06-21 09:24] VITALS: BP 128/81
--- NOTE | 2019-06-21 12:15 | OP ---
PATIENT NAME: ELIE MARIA MEDICAL RECORD: [id number] :[birth year] LOCATION:[address] ADMISSION DATE:06/13/19 SURGEON: NOÉ VILLALTA MD DATE OF OPERATION: 06/16/2019 PREOPERATIVE DIAGNOSES: 1. Need for IV access. 2. Anemia of chronic disease. 3. Diabetes mellitus. 4. Acute respiratory failure. 5. Peripheral vascular disease. 6. Tobacco dependence syndrome. POSTOPERATIVE DIAGNOSES: 1. Need for IV access. 2. Anemia of chronic disease. 3. Diabetes mellitus. 4. Acute respiratory failure. 5. Peripheral vascular disease. 6. Tobacco dependence syndrome. PROCEDURE: Left subclavian vein triple lumen central venous line placement. SURGEON: Noé Villalta MD REPORT OF PROCEDURE: The patient's left chest was prepped and draped in sterile fashion. A total of 5 cc of 1% lidocaine was infused into the subcutaneous tissues. A needle was used to cannulate the left subclavian vein. A guidewire was advanced with ease. Over this wire, dilator was placed followed by the triple lumen catheter. The catheter aspirated nonpulsatile dark blood and flushed easily in all 3 ports. This was sutured into place with 3-0 Prolenes and dressed appropriately. COMPLICATIONS: None. CONDITION: Stable. ANESTHESIA: Local. BLOOD LOSS: Minimal. Procedure done at the bedside. TRANSINT:[id number] Voice Confirmation ID: [id number] DOCUMENT ID: [id number] NOÉ VILLALTA MD at 1215 CC: [id number] DICTATION DATE: 06/16/191918 FINANCIAL REPORTING DIRECTOR: 06/16/191942 ADM IN [facility] [address] [place] [id number]
[2019-06-21 12:58] VITALS: BP 95/64
[2019-06-21] MEDS ORDERED: ZYVOX600 MG PO (13:20)
[2019-06-21] MEDS ORDERED: ELIQUIS5 MG PO (13:22)
[2019-06-21] MEDS ORDERED: IPRAT-ALBUT 0.5-3 ML INH (13:23)
[2019-06-21] MEDS ORDERED: K-DUR20 MEQ PO (13:23)
[2019-06-21] MEDS ORDERED: QUESTRAN PACKET PO (13:24)
[2019-06-21] MEDS ORDERED: QUESTRAN LIG1 PACKET PO (13:24)
--- NOTE | 2019-06-21 15:05 | MORECARE ---
CASE MANAGEMENT DISCHARGE SUMMARY PATIENT: ELIE MARIA UNIT: [id number] ADM DATE: 06/13/19 AGE: 49 : 66 SEX: M ROOM/BED: D.2236 AUTHOR: DHEERAJ ELIZABETH PHYSICIAN: REFERRING PHYSICIAN: SAMANTHA BONILLA MD DATE OF SERVICE: 06/21/19 Discharge Plan Patient Name: ELIE MARIA Facility: [facility]:[place] : 1970 Planned Disposition: Home Hlth Svc w Plan Readm Anticipated Discharge Date: Discharge Date: Expected LOS: Initial Reviewer: [email or web address] Initial Review Date: 06/19/2019 Generated: 06/21/19 4:05 pm Comments DCP- Discharge Planning Updated by [email or web address]: Amy Scherer on 06/21/19 2:[address] Patient Name: ELIE MARIA Encounter No: [id number] : 1970 Primary Insurance: MEDICAID [place] Anticipated DC Date: Planned Disposition: Home Hlth Svc w Plan Readm External Planned Provider: : DCP follow-up note: Patient in agreement with discharge plan. I called Estrella at [facility] and clinical faxed. His oxygen saturation is 100% on room air, he does not qualify for home oxygen. He has not had an inhaler in the past and with [place] Medicaid he will need a failed inhaler prior to ordering nebulizer for insurance to pay for it. Patient is unable to pay private pay for nebulizer and neb meds (per patient). Stacey Mckeon informed that he would need inhaler rather than nebulizer. No changes to plan. Case management will follow and assist as needed. Amy Scherer DCP- Discharge Planning Updated by [email or web address]: Amy Scherer on 06/19/19 1:[address] Patient Name: ELIE MARIA Admission Status: ER Accout number: [id number] Admission Date: 06-13-2019 : 1970 Admission Diagnosis:URINARY TRACT INFECTION, SITE NOT SPECIFIED Attending: SAMANTHA BONILLA Current LOS: 6 Anticipated DC Date: Planned Disposition: Home Hlth Svc w Plan Readm Primary Insurance: [place]ID [place] Discharge Planning Comments: CM met with patient to discuss discharge planning, he is alone in the room. He states he is ready to go home. He lives with his girlfriend. He states nothing has changed since he was here last time. States his girlfriend will pick him up. I spoke with Scottiejoey at [facility] and they will resume on discharge. CM will continue to follow and assist with discharge planning/needs. Parts Department Supervisor: Amy Scherer DCPIA - Discharge Planning Initial Assessment Updated by [id number]: Amy Scherer on 06/19/19 2:47 pm * Is the patient Alert and Oriented? Yes * How many steps to enter\exit or inside your home? 3/0 * PCP Dr. Pedro * [facility] [address] * Preadmission Environment Home with Family * ADLs Partial Dependent * Partial ADLs (Assistance needed) Ambulation Medication Management * Equipment Rolling Walker Walker Wheelchair * List name and contact numbers for known caregivers / representatives who currently or will assist patient after discharge: Maria Victoria Encarnacion - [phone] * Verbal permission to speak to the caregivers and representatives has been obtained from the patient. Yes * Community resources currently utilized Home Health * Please name any agencies selected above. [facility] * Additional services required to return to the preadmission environment? No * Can the patient safely return to the preadmission environment? Yes * Has this patient been hospitalized within the prior 30 days at any hospital? Yes Coverage Notice Reviewer: [id number] - Amy Gilmer Notice Issued Date-Time: 06/19/2019 14:53 Notice Type: Patient Choice Letter Notice Delivered To: Patient Relationship to Patient: Self Computerized Mill Recorder Name: Delivery Method: HAND - Hand Delivered My Days: Prior Verbal Notification: Recipient Understood Notice: Yes Recipient Signature: Yes Med Rec Note Co-signed by Attending: Coverage Notice Comment: MADHAVI for [facility] Last DP export: 06/19/19 2:00 p Patient Name: ELIE MARIA Page 31641 at 1505 All edits/amendments must be made on the electronic document DICTATION DATE: 06/21/19 1500 BUSINESS TRAINER: SHAUN 06/21/19 1503 RPT#: [id number] DC DATE: STATUS: ADM IN [facility] [address] [place] [address] END OF REPORT
[2019-06-21 20:43] VITALS: BP 109/70
[2019-06-22 00:52] VITALS: BP 118/70
[2019-06-22 04:48] VITALS: BP 116/80
[2019-06-22 06:36] LABS: HEMATOCRIT 28.7 % (42.0-54.0); HEMOGLOBIN 9.4 g/dL (13.5-17.5); MCHC 32.8 g/dL (31.0-37.0); MCV 85.4 fL (80.0-100.0); MEAN PLATELET VOLUME 9.2 fL (7.4-10.4); PLATELET COUNT 285 10x3/uL (130-400); RBC 3.36 10x6/uL (4.20-6.10); RDW 16.7 % (11.5-14.5); WBC 9.4 10x3/uL (4.8-10.8)
[2019-06-22 06:51] LABS: ALBUMIN 1.2 g/dL (3.4-5.0); ALKALINE PHOSPHATASE 153 U/L (46-116); BILIRUBIN - TOTAL 0.32 mg/dL (0.2-1.3); CARBON DIOXIDE 27.2 mmol/L (21.0-32.0); CHLORIDE - SERUM 108 mmol/L (98-107); CREATININE - SERUM 0.6 mg/dL (0.6-1.3); GLUCOSE 117 mg/dL (74-106); MAGNESIUM - SERUM 1.7 mg/dL (1.8-2.4); PROTEIN - SERUM 5.7 g/dL (6.4-8.2); SODIUM 138 mmol/L (136-145); eGFR NON AFRICAN AMERICAN > 90 mL/min (90-120)
[2019-06-22 06:55] LABS: ALT (SGPT) 6 U/L (10-68); CALC OSMOLALITY 274 mosm/kg (275-300); POTASSIUM - SERUM 4.4 mmol/L (3.5-5.1); UREA NITROGEN 6 mg/dL (7-18)
[2019-06-22 08:15] LABS: BASOPHILS 1 % (0-2); EOSINOPHILS 22 % (0-7); HYPOCHROMASIA 2+; LYMPHOCYTES 25 % (15-50); MONOCYTES 6 % (2-11); NEUTROPHILS 46 % (40-80); PLATELET ESTIMATE NORMAL; ROULEAUX 1+; TOXIC GRANULATION 1+; VACUOLES 1+
[2019-06-22 14:14] VITALS: BP 107/67
[2019-06-22 17:27] VITALS: BP 114/62
[2019-06-22 20:18] VITALS: BP 101/61
[2019-06-22 23:33] LABS: ALBUMIN 1.4 g/dL (3.4-5.0); ALKALINE PHOSPHATASE 162 U/L (46-116); ALT (SGPT) 12 U/L (10-68); BILIRUBIN - TOTAL 0.37 mg/dL (0.2-1.3); CALC OSMOLALITY 270 mosm/kg (275-300); CALCIUM 7.2 mg/dL (8.5-10.1); CARBON DIOXIDE 24.5 mmol/L (21.0-32.0); CHLORIDE - SERUM 105 mmol/L (98-107); CREATININE - SERUM 0.8 mg/dL (0.6-1.3); GLUCOSE 127 mg/dL (74-106); POTASSIUM - SERUM 4.7 mmol/L (3.5-5.1); PROTEIN - SERUM 6.5 g/dL (6.4-8.2); SODIUM 136 mmol/L (136-145); UREA NITROGEN 5 mg/dL (7-18); eGFR NON AFRICAN AMERICAN > 90 mL/min (90-120)
[2019-06-23 05:34] VITALS: BP 116/76
[2019-06-23 05:51] LABS: BASOPHILS 0.6 % (0-2); EOSINOPHILS 16.9 % (0-7); HEMATOCRIT 28.4 % (42.0-54.0); HEMOGLOBIN 9.5 g/dL (13.5-17.5); IMMATURE GRANULOCYTES 0.4 % (0-5); LYMPHOCYTES 25.3 % (15-50); MCH 28.7 pg (26.0-34.0); MCHC 33.5 g/dL (31.0-37.0); MCV 85.8 fL (80.0-100.0); MEAN PLATELET VOLUME 9.2 fL (7.4-10.4); MONOCYTES 7.8 % (2-11); PLATELET COUNT 281 10x3/uL (130-400); RBC 3.31 10x6/uL (4.20-6.10); RDW 16.9 % (11.5-14.5); WBC 11.3 10x3/uL (4.8-10.8)
[2019-06-23 06:14] LABS: ALBUMIN 1.2 g/dL (3.4-5.0); ALKALINE PHOSPHATASE 160 U/L (46-116); ALT (SGPT) 13 U/L (10-68); CALCIUM 7.2 mg/dL (8.5-10.1); CARBON DIOXIDE 26.4 mmol/L (21.0-32.0); CHLORIDE - SERUM 106 mmol/L (98-107); CREATININE - SERUM 0.8 mg/dL (0.6-1.3); MAGNESIUM - SERUM 2.1 mg/dL (1.8-2.4); POTASSIUM - SERUM 4.3 mmol/L (3.5-5.1); PROTEIN - SERUM 5.9 g/dL (6.4-8.2); SODIUM 138 mmol/L (136-145); UREA NITROGEN 5 mg/dL (7-18); eGFR NON AFRICAN AMERICAN > 90 mL/min (90-120)
[2019-06-23 06:16] LABS: CALC OSMOLALITY 279 mosm/kg (275-300); GLUCOSE 223 mg/dL (74-106); PHOSPHOROUS 3.2 mg/dL (2.5-4.9)
[2019-06-23 20:33] VITALS: BP 117/65
[2019-06-24 00:57] VITALS: BP 110/55
[2019-06-24 04:56] LABS: BASOPHILS 0.7 % (0-2); EOSINOPHILS 17.5 % (0-7); HEMATOCRIT 27.7 % (42.0-54.0); HEMOGLOBIN 9.2 g/dL (13.5-17.5); IMMATURE GRANULOCYTES 0.4 % (0-5); LYMPHOCYTES 30.1 % (15-50); MCH 28.5 pg (26.0-34.0); MCHC 33.2 g/dL (31.0-37.0); MCV 85.8 fL (80.0-100.0); MEAN PLATELET VOLUME 8.9 fL (7.4-10.4); MONOCYTES 7.4 % (2-11); NEUTROPHILS 43.9 % (40-80); PLATELET COUNT 268 10x3/uL (130-400); RBC 3.23 10x6/uL (4.20-6.10); RDW 16.9 % (11.5-14.5); WBC 10.6 10x3/uL (4.8-10.8)
[2019-06-24 05:08] VITALS: BP 115/68
[2019-06-24 05:09] LABS: ALBUMIN 1.3 g/dL (3.4-5.0); ALKALINE PHOSPHATASE 173 U/L (46-116); ALT (SGPT) 14 U/L (10-68); BILIRUBIN - TOTAL 0.35 mg/dL (0.2-1.3); CALCIUM 7.3 mg/dL (8.5-10.1); CARBON DIOXIDE 27.9 mmol/L (21.0-32.0); CHLORIDE - SERUM 105 mmol/L (98-107); CREATININE - SERUM 0.6 mg/dL (0.6-1.3); MAGNESIUM - SERUM 1.9 mg/dL (1.8-2.4); PHOSPHOROUS 2.9 mg/dL (2.5-4.9); POTASSIUM - SERUM 4.6 mmol/L (3.5-5.1); PROTEIN - SERUM 6.2 g/dL (6.4-8.2); SODIUM 131 mmol/L (136-145); eGFR NON AFRICAN AMERICAN > 90 mL/min (90-120)
[2019-06-24 05:22] LABS: CALC OSMOLALITY 258 mosm/kg (275-300); GLUCOSE 103 mg/dL (74-106); UREA NITROGEN 2 mg/dL (7-18)
[2019-06-24 09:11] VITALS: BP 117/71
[2019-06-24 11:52] VITALS: BP 107/66
[2019-06-24 14:18] LABS: PATH REVIEW PERIPHERAL SMEAR REVIEWED
[2019-06-24] MEDS ORDERED: FLAGYL500 MG PO (16:14)
[2019-06-24] MEDS ORDERED: LEVAQUIN750 MG PO (16:14)
--- NOTE | 2019-06-24 16:34 | MORECARE ---
CASE MANAGEMENT DISCHARGE SUMMARY PATIENT: ELIE MARIA UNIT: [id number] ADM DATE: 06/13/19 AGE: 49 : [birth year] SEX: M ROOM/BED: D.2236 AUTHOR: DHEERAJ ELIZABETH PHYSICIAN: REFERRING PHYSICIAN: SAMANTHA BONILLA MD DATE OF SERVICE: 06/24/19 Discharge Plan Patient Name: ELIE MARIA Facility: [facility]:[place] : 1970 Planned Disposition: Home Hlth Svc w Plan Readm Anticipated Discharge Date: Discharge Date: Expected LOS: Initial Reviewer: [email or web address] Initial Review Date: 06/19/2019 Generated: 06/24/19 5:34 pm Comments DCP- Discharge Planning Updated by [email or web address]: Susana Gomez on 06/24/19 3:[address] DC ORDERS SENT TO [facility] FOR RESUMPTION OF CARE DCP- Discharge Planning Updated by [email or web address]: Amy Scherer on 06/21/19 2:[address] Patient Name: ELIE MARIA Encounter No: [id number] : 1970 Primary Insurance: MEDICAID [place] Anticipated DC Date: Planned Disposition: Home Hlth Svc w Plan Readm External Planned Provider: : DCP follow-up note: Patient in agreement with discharge plan. I called Estrella at [facility] and clinical faxed. His oxygen saturation is 100% on room air, he does not qualify for home oxygen. He has not had an inhaler in the past and with [place] Medicaid he will need a failed inhaler prior to ordering nebulizer for insurance to pay for it. Patient is unable to pay private pay for nebulizer and neb meds (per patient). Stacey Mckeon informed that he would need inhaler rather than nebulizer. No changes to plan. Case management will follow and assist as needed. Amy Scherer DCP- Discharge Planning Updated by [id number]: Amy Scherer on 06/19/19 1:[address] Patient Name: ELIE MARIA Admission Status: ER Accout number: [id number] Admission Date: 06-13-2019 : 1970 Admission Diagnosis:URINARY TRACT INFECTION, SITE NOT SPECIFIED Attending: SAMANTHA BONILLA Current LOS: 6 Anticipated DC Date: Planned Disposition: Home Hlth Svc w Plan Readm Primary Insurance: MEDICAID [place] Discharge Planning Comments: CM met with patient to discuss discharge planning, he is alone in the room. He states he is ready to go home. He lives with his girlfriend. He states nothing has changed since he was here last time. States his girlfriend will pick him up. I spoke with Kat at [facility] and they will resume on discharge. CM will continue to follow and assist with discharge planning/needs. Fuel Storage Technician: Amy Scherer DCPIA - Discharge Planning Initial Assessment Updated by [id number]: mAy Scherer on 06/19/19 2:47 pm * Is the patient Alert and Oriented? Yes * How many steps to enter\exit or inside your home? 3/0 * PCP Dr. Pedro * Pharmacy [facility] on [facility] * Preadmission Environment Home with Family * ADLs Partial Dependent * Partial ADLs (Assistance needed) Ambulation Medication Management * Equipment Rolling Walker Walker Wheelchair * List name and contact numbers for known caregivers / representatives who currently or will assist patient after discharge: Maria Victoria Encarnacion - [phone] * Verbal permission to speak to the caregivers and representatives has been obtained from the patient. Yes * Community resources currently utilized Home Health * Please name any agencies selected above. [facility] * Additional services required to return to the preadmission environment? No * Can the patient safely return to the preadmission environment? Yes * Has this patient been hospitalized within the prior 30 days at any hospital? Yes Coverage Notice Reviewer: [id number] - Amy Scherer Notice Issued Date-Time: 06/19/2019 14:53 Notice Type: Patient Choice Letter Notice Delivered To: Patient Relationship to Patient: Self Outpatient Interviewing Clerk Name: Delivery Method: HAND - Hand Delivered My Days: Prior Verbal Notification: Recipient Understood Notice: Yes Recipient Signature: Yes Med Rec Note Co-signed by Attending: Coverage Notice Comment: [facility] for [facility] Last DP export: 06/21/19 2:05 p Patient Name: ELIE MARIA Page [phone] at 1634 All edits/amendments must be made on the electronic document DICTATION DATE: 06/24/191633 PROFESSIONAL ADVISOR: DM 06/24/19 1634 RPT#: [id number] DC DATE: STATUS: ADM IN [facility] [address] [place] [address] END OF REPORT
[2019-06-24] MEDS ORDERED: ALBUTEROL SULF8.5 GM INH (16:52)
== END 2019-06-24 17:48 | disposition home health service (06) | DRG 91 ==
LOC: D.ER 16:04 → D.ICU 19:25 → D.MS 19:25 → D.ICU 06-14 14:35 → D.MS 06-17 08:15
PROVIDERS: Emergency Medicine; Family Medicine; Internal Medicine Pulmonary Disease; ADMIT Internal Medicine Nephrology; ATTEND Internal Medicine Nephrology
PROC: 05H633Z Insertion of Infusion Device into Left Subclavian Vein, Percutaneous Approach (ICD-10-PCS; principal; 2019-06-16)
DX: G93.1 Anoxic brain damage, not elsewhere classified (principal); J96.01 Acute respiratory failure with hypoxia; E43 Unspecified severe protein-calorie malnutrition; R40.2313 Coma scale, best motor response, none, at hospital admission; R40.2213 Coma scale, best verbal response, none, at hospital admission; R40.2113 Coma scale, eyes open, never, at hospital admission; J69.0 Pneumonitis due to inhalation of food and vomit; N39.0 Urinary tract infection, site not specified; Z68.1 Body mass index [BMI] 19.9 or less, adult; N17.9 Acute kidney failure, unspecified; I50.22 Chronic systolic (congestive) heart failure; F17.213 Nicotine dependence, cigarettes, with withdrawal; H57.02 Anisocoria

== ENCOUNTER 2019-07-17 16:22 | Emergency (ER) | payer MEDICAID ==
[~2019-07-17] VITALS: Ht 175.3 cm; Wt 50.0 kg
[~2019-07-17 16:22] MED LIST changes: +ALBUTEROL SULF8.5 GM INH; +ELIQUIS5 MG PO; +IPRAT-ALBUT 0.5-3 ML INH; +QUESTRAN LIG1 PACKET PO; +QUESTRAN PACKET PO; +ZYVOX600 MG PO
[2019-07-17 16:25] VITALS: Ht 175.3 cm; Wt 50.0 kg
[2019-07-17 17:24] VITALS: BP 122/65
== END 2019-07-17 17:25 | disposition home or self-care (01) ==
LOC: D.ER 16:22
DX: E16.2 Hypoglycemia, unspecified (principal)

== ENCOUNTER 2019-08-27 12:46 | Inpatient (IN) | payer MEDICAID ==
[2019-08-27] VITALS (35 sets, daily range): BP systolic 62–144; BP diastolic 41–85; BMI 15.8
[~2019-08-27] VITALS: Ht 175.3 cm; Wt 59.6 kg
[2019-08-27 14:04] LABS: HEMATOCRIT 36.7 % (42.0-54.0); HEMOGLOBIN 12.7 g/dL (13.5-17.5); MCH 31.4 pg (26.0-34.0); MCHC 34.6 g/dL (31.0-37.0); MCV 90.6 fL (80.0-100.0); MEAN PLATELET VOLUME 9.8 fL (7.4-10.4); RBC 4.05 10x6/uL (4.20-6.10); WBC 18.1 10x3/uL (4.8-10.8)
[2019-08-27 14:06] LABS: PLATELET COUNT 161 10x3/uL (130-400)
[2019-08-27 14:10] LABS: KETONE - SERUM NEGATIVE (NEGATIVE)
[2019-08-27 14:17] LABS: ALBUMIN 2.1 g/dL (3.4-5.0); ALKALINE PHOSPHATASE 431 U/L (46-116); ALT (SGPT) 72 U/L (10-68); BILIRUBIN - TOTAL 0.92 mg/dL (0.2-1.3); CALC OSMOLALITY 286 mosm/kg (275-300); CALCIUM 8.4 mg/dL (8.5-10.1); CARBON DIOXIDE 11.8 mmol/L (21.0-32.0); CHLORIDE - SERUM 100 mmol/L (98-107); CREATININE - SERUM 4.1 mg/dL (0.6-1.3); PROTEIN - SERUM 7.1 g/dL (6.4-8.2); SODIUM 129 mmol/L (136-145); UREA NITROGEN 62 mg/dL (7-18); eGFR NON AFRICAN AMERICAN 16 mL/min (90-120)
[2019-08-27 14:20] LABS: GLUCOSE 283 mg/dL (74-106)
[2019-08-27 14:26] LABS: AMYLASE - SERUM 24 U/L (25-115); LIPASE 61 U/L (73-393); THYROID STIMULATING HORMONE 2.57 uIU/mL (0.36-3.74)
[2019-08-27 14:30] LABS: TROPONIN-I < 0.017 ng/mL (0.000-0.060)
[2019-08-27 15:09] LABS: EOSINOPHILS 4 % (0-7); LYMPHOCYTES 7 % (15-50); MONOCYTES 2 % (2-11); NEUTROPHILS 46 % (40-80); PLATELET ESTIMATE NORMAL
[2019-08-27 16:25] LABS: APPEARANCE TURBID (CLEAR); BILIRUBIN NEGATIVE (NEGATIVE); COLOR YELLOW (YELLOW); GLUCOSE NEGATIVE (NEGATIVE); KETONE NEGATIVE (NEGATIVE); NITRITE NEGATIVE (NEGATIVE); PROTEIN 1+ mg/dL (NEGATIVE); UROBILINOGEN NORMAL (NORMAL)
[2019-08-27 16:26] LABS: BACTERIA MODERATE /hpf (NEGATIVE); WHITE CELLS - URINE >50 /hpf (NEGATIVE)
[2019-08-27 16:37] LABS: UDS - AMPHET NEGATIVE QUAL (NEGATIVE); UDS - BARB NEGATIVE QUAL (NEGATIVE); UDS - BENZO NEGATIVE QUAL (NEGATIVE); UDS - COCAINE NEGATIVE QUAL (NEGATIVE); UDS - OPIATE NEGATIVE QUAL (NEGATIVE); UDS - PCP NEGATIVE QUAL (NEGATIVE); UDS - THC NEGATIVE QUAL (NEGATIVE)
--- NOTE | 2019-08-27 17:53 | NUR ---
NURSE STARTED DOPAMINE DRIP AT 10 PER EDP. PT BLOOD PRESSURE CAME UP TO 144/79. NURSE TITRATED DRIP TO 8 MCG, PT BLOOD PRESSURE 131/75, NURSE TITRATED DRIP TO 6 MCG. PT BLOOD PRESSURE 131/ 75, NURSE TITRATED DRIP TO 4 MCG. PT BLOOD PRESSURE 110/49. EDP STATES TO KEEP DOPAMINE DRIP AT 4 MCG.
--- NOTE | 2019-08-27 19:00 | NUR ---
PTS BLOOD PRESSURE IS 87/60, THIS NURSE TITRATED DOPAMINE DRIP TO 6 MCG.
--- NOTE | 2019-08-27 19:24 | NUR ---
BEDSIDE REPORT HANDED OFF FROM KEVIN SHELLEY VIA SBAR. EATING CHIPS AND DRINKING WATER. DENIES NEEDS, WILL CONTINUE TO MONTIOR.
--- NOTE | 2019-08-27 22:34 | NUR ---
PT RECEIVED TO UNIT FROM ED VIA STRETCHER AND RNX1. TRANSFERED TO ICU BED BY RNX3, PT TOLERATED WELL. RECEIVING DOBUTAMINE AND NS. IVS TO LEFT EJ, LEFT A/C, LEFT FOREARM. PT WITH EMMANUEL PATENT, MILKY URINE NOTED. NO COMPLAINTS OF PAIN. VSS. PT ALERT AND ORIENTED. HAS RECEIVED SCHEDULED MEDICATIONS PER JAN. TITRATING DOBUTAMINE TOLERATING. RESTING ON LEFT SIDE. CALL LIGHT IN REACH. WILL CONTINUE TO OBSERVE.
--- NOTE | 2019-08-27 23:15 | NUR ---
REASSESSMEMT COMPLETED, SEE FLOW SHEET. WILL CONTINUE TO OBSERVE,
[2019-08-27 23:38] LABS: CKMB 1.7 U/L (0.0-3.6); CREATINE KINASE 63 UL (21-232)
[2019-08-27 23:41] LABS: TROPONIN-I < 0.017 ng/mL (0.000-0.060)
[2019-08-28] VITALS (88 sets, daily range): BP systolic 62–135; BP diastolic 40–103; Ht 175.3 cm; Wt 59.6 kg
[2019-08-28 04:25] LABS: BASOPHILS 0.2 % (0-2); EOSINOPHILS 0.1 % (0-7); HEMATOCRIT 32.6 % (42.0-54.0); HEMOGLOBIN 11.5 g/dL (13.5-17.5); IMMATURE GRANULOCYTES 0.8 % (0-5); LYMPHOCYTES 3.6 % (15-50); MCH 30.9 pg (26.0-34.0); MCHC 35.3 g/dL (31.0-37.0); MEAN PLATELET VOLUME 10.2 fL (7.4-10.4); MONOCYTES 2.4 % (2-11); NEUTROPHILS 92.9 % (40-80); PLATELET COUNT 135 10x3/uL (130-400); RBC 3.72 10x6/uL (4.20-6.10); RDW 15.8 % (11.5-14.5)
[2019-08-28 04:29] LABS: MCV 87.6 fL (80.0-100.0)
[2019-08-28 04:52] LABS: APTT 58.1 SECONDS (22.8-39.4); INR 1.83 (0.85-1.17); PROTIME 20.5 SECONDS (11.6-15.0)
[2019-08-28 04:56] LABS: ALBUMIN 1.8 g/dL (3.4-5.0); ALKALINE PHOSPHATASE 371 U/L (46-116); ALT (SGPT) 83 U/L (10-68); CARBON DIOXIDE 11.6 mmol/L (21.0-32.0); CHLORIDE - SERUM 108 mmol/L (98-107); CKMB 1.5 U/L (0.0-3.6); CREATINE KINASE 48 UL (21-232); CREATININE - SERUM 3.5 mg/dL (0.6-1.3); MAGNESIUM - SERUM 1.5 mg/dL (1.8-2.4); PHOSPHOROUS 4.7 mg/dL (2.5-4.9); POTASSIUM - SERUM 3.6 mmol/L (3.5-5.1); PROTEIN - SERUM 6.3 g/dL (6.4-8.2); SODIUM 137 mmol/L (136-145); UREA NITROGEN 63 mg/dL (7-18); eGFR NON AFRICAN AMERICAN 20 mL/min (90-120)
[2019-08-28 05:00] LABS: CALC OSMOLALITY 291 mosm/kg (275-300); CALCIUM 6.9 mg/dL (8.5-10.1); GLUCOSE 103 mg/dL (74-106); TROPONIN-I < 0.017 ng/mL (0.000-0.060)
--- NOTE | 2019-08-28 07:08 | NUR ---
REPORT RECEIVED. ASSESSMENT COMPLETE PER FLOW SHEET. VSS. PT RESTING COMFORTABLY DENIES NEEDSOR PAIN WILL CONTINUE TO MONITOR
--- NOTE | 2019-08-28 07:49 | NUR ---
PT RECEIVED CHG BATH AND COMPLETE LINEN CHANGE WITH [facility] WITH MEDIUM LOOSE BM. HR 140 PT ASSESS[address] WITH PT [address] ON N/C 2LPM AND HOB ELEVATED. PT CALM STATES THAT HE RUNS DEREK ALL THE TIME. HR DECREASING.
[2019-08-28 10:52] LABS: CKMB 4.2 U/L (0.0-3.6); TROPONIN-I < 0.017 ng/mL (0.000-0.060)
[2019-08-28 10:55] LABS: CREATINE KINASE 292 UL (21-232)
--- NOTE | 2019-08-28 11:15 | NUR ---
REASSESSMENT COMPLETE PER FLOW SHEET VSS NO NEW CHANGES WILL CONTINUE TO MONITOR
--- NOTE | 2019-08-28 15:00 | NUR ---
REASSESSMENT COMPLETE PER FLOW SHEET. VSS NO NEW CHANGES PT RESTING COMFORTABLY WILL CONTINUE TO MONITOR
--- NOTE | 2019-08-28 17:57 | MORECARE ---
CASE MANAGEMENT DISCHARGE SUMMARY PATIENT: ELIE MARIA UNIT: [id number] ADM DATE: 08/27/19 AGE: 49 : 66 SEX: M ROOM/BED: D.2301 AUTHOR: DHEERAJ ELIZABETH PHYSICIAN: REFERRING PHYSICIAN: ALEENA TORRES DO DATE OF SERVICE: 08/28/19 Discharge Plan Patient Name: ELIE MARIA [facility] : 1970 Planned Disposition: Home with Home Health Anticipated Discharge Date: Discharge Date: Expected LOS: Initial Reviewer: [email or web address] Initial Review Date: 08/27/2019 Generated: 08/28/19 6:57 pm Patient Name: ELIE MARIA Page [phone] at 7726 All edits/amendments must be made on the electronic document DICTATION DATE: 08/28/191756 PHYSICAL THERAPIST AIDE: SHAUN 08/28/191756 RPT#: [id number] DC DATE: STATUS: ADM IN [facility] [address] [place] [address] END OF REPORT
--- NOTE | 2019-08-28 18:11 | MORECARE ---
CASE MANAGEMENT DISCHARGE SUMMARY PATIENT: ELIE MARIA UNIT: [id number] ADM DATE: 08/27/19 AGE: 49 : 66 SEX: M ROOM/BED: D.2301 AUTHOR: GLENNDOC PHYSICIAN: REFERRING PHYSICIAN: ALEENA TORRES DO DATE OF SERVICE: 08/28/19 Discharge Plan Patient Name: ELIE MARIA Facility: [facility]:[place] : 1970 Planned Disposition: Home with Home Health Anticipated Discharge Date: Discharge Date: Expected LOS: Initial Reviewer: [email or web address] Initial Review Date: 08/27/2019 Generated: 08/28/19 7:11 pm Comments DCP- Discharge Planning Updated by [id number]: Elen Jean on 08/28/19 5:[address] Patient Name: ELIE MARIA Admission Status: ER Accout number: [id number] Admission Date: 08-27-2019 : 1970 Admission Diagnosis: Attending: ALEENA TORRES Current LOS: 1 Anticipated DC Date: Planned Disposition: Home with Home Health Primary Insurance: MEDICAID [place] Discharge Planning Comments: CM met with patient at bedside after explaining CM role and obtaining verbal consent. Patient lives at home with his significant other Dusty where he is independent with his care and plans to return there upon discharge. Patient feels this would be a safe discharge. CM discussed availability / needs of home health and medical equipment. Patient is under care of [facility] calls and plans to resume care with them upon discharge. MADHAVI signed Patient denies any discharge needs at this time. Patient states he will have his family drive him home upon discharge. CM will continue to follow and assist as needed with discharge planning / needs. Special Services Supervisor: Elen Jean DCPIA - Discharge Planning Initial Assessment Updated by [id number]: Elen Jean on 08/28/19 6:05 pm * Is the patient Alert and Oriented? Yes * How many steps to enter\exit or inside your home? * PCP FLIP * [facility] * Preadmission Environment Home with Family * ADLs Partial Dependent * Partial ADLs (Assistance needed) Ambulation Bathing Dressing Eating Medication Management Toileting Transfers * Other Equipment WALKER, W/C * List name and contact numbers for known caregivers / representatives who currently or will assist patient after discharge: DUSTY PARDO - [facility]- [phone] * Verbal permission to speak to the caregivers and representatives has been obtained from the patient. Yes * Community resources currently utilized Home Health * Please name any agencies selected above. [facility] * Additional services required to return to the preadmission environment? No * Can the patient safely return to the preadmission environment? Yes * Has this patient been hospitalized within the prior 30 days at any hospital? No Coverage Notice Reviewer: [id number] Chaparro Jean Notice Issued Date-Time: 08/28/2019 18:07 Notice Type: Patient Choice Letter Notice Delivered To: Patient Relationship to Patient: Social Media Marketing Manager Name: Delivery Method: HAND - Hand Delivered My Days: Prior Verbal Notification: Recipient Understood Notice: Yes Recipient Signature: Yes Med Rec Note Co-signed by Attending: Coverage Notice Comment: Last DP export: 08/28/19 4:57 p Patient Name: ELIE MARIA Page [phone] at 1811 All edits/amendments must be made on the electronic document DICTATION DATE: 08/28/191809 BUDGET ACCOUNTANT: SHAUN 08/28/191809 RPT#: [id number] DC DATE: STATUS: ADM IN [facility] [address] [place] [address] END OF REPORT
[2019-08-28 18:58] LABS: POTASSIUM - SERUM 4.3 mmol/L (3.5-5.1)
[2019-08-28 18:59] LABS: CALCIUM 6.1 mg/dL (8.5-10.1); CARBON DIOXIDE 8.3 mmol/L (21.0-32.0)
--- NOTE | 2019-08-28 19:00 | NUR ---
BEDSIDE REPORT AND SHIFT ASSESSMENT COMPLETE. VSS, NO SIGNS OF ACUTE DISTRESS NOTED. T 98.1 ORAL. L IJ PIV AND L FOREARM PIV WNL, DRESSING CDI. CALL LIGHT IN REACH. WILL CONTINUE TO MONITOR.
--- NOTE | 2019-08-28 20:00 | NUR ---
INCONTINENT OF STOOL, CHG BATH AND LINEN CHANGE COMPLETE. PT HAD ANOTHER BM, LINEN CHANGED AGAIN. C/O PAIN, WILL GIVE PAIN MEDS PER MAR.
--- NOTE | 2019-08-28 20:30 | NUR ---
[facility] CALLED TO COR[facility]OUGHBY APN. NEW ORDERS RECEIVED.
--- NOTE | 2019-08-28 21:10 | NUR ---
CRITICAL ABG RESULTS CALLED TO [facility] APN. ORDERS TO CALL RENAL RECEIVED. RENAL PAGED.
--- NOTE | 2019-08-28 21:15 | NUR ---
SPOKE WITH DR CARRILLO, NEW ORDERS RECEIVED. MEDS GIVEN PER MAR. WILL CONTINUE TO MONITOR.
[2019-08-29] VITALS (32 sets, daily range): BP systolic 82–132; BP diastolic 46–90
--- NOTE | 2019-08-29 01:00 | NUR ---
PT SLEEPING. CALL LIGHT IN REACH, WILL CONTINUE TO MONITOR.
--- NOTE | 2019-08-29 01:00 | NUR ---
MEDS GIVEN PER MAR. PD STARTED. PT DENIES ANY NEEDS, CALL LIGHT IN REACH.
--- NOTE | 2019-08-29 03:00 | NUR ---
REASSESSMENT COMPLETE, SEE FLOWSHEET. VSS, NO SIGNS OF ACUTE DISTRESS NOTED. PT REQUESTING CUP OF ICE WATER, DENIES ANY OTHER NEEDS. CALL LIGHT IN REACH, WILL MONITOR.
[2019-08-29 04:22] LABS: BASOPHILS 0.2 % (0-2); EOSINOPHILS 0 % (0-7); HEMATOCRIT 27.7 % (42.0-54.0); HEMOGLOBIN 9.8 g/dL (13.5-17.5); IMMATURE GRANULOCYTES 0.8 % (0-5); LYMPHOCYTES 11.2 % (15-50); MCH 30.4 pg (26.0-34.0); MCHC 35.4 g/dL (31.0-37.0); MEAN PLATELET VOLUME 10.3 fL (7.4-10.4); MONOCYTES 5.2 % (2-11); NEUTROPHILS 82.6 % (40-80); RBC 3.22 10x6/uL (4.20-6.10); RDW 15.7 % (11.5-14.5)
[2019-08-29 04:34] LABS: PLATELET COUNT 73 10x3/uL (130-400)
[2019-08-29 04:40] LABS: ALBUMIN 1.6 g/dL (3.4-5.0); ANION GAP 16.8 mmol/L (8-16); BILIRUBIN - DIRECT 1.04 mg/dL (0.00-0.30); BILIRUBIN - INDIRECT 0.42 mg/dL (0.00-1.00); BILIRUBIN - TOTAL 1.46 mg/dL (0.2-1.3); CARBON DIOXIDE 17.9 mmol/L (21.0-32.0); MAGNESIUM - SERUM 1.9 mg/dL (1.8-2.4); PHOSPHOROUS 3.4 mg/dL (2.5-4.9); POTASSIUM - SERUM 3.7 mmol/L (3.5-5.1); PROTEIN - SERUM 5.4 g/dL (6.4-8.2)
[2019-08-29 04:42] LABS: CALCIUM 6.2 mg/dL (8.5-10.1)
--- NOTE | 2019-08-29 05:00 | NUR ---
PT REPOSITIONED SELF IN BED. MEDS GIVEN PER MAR, TOLERATED BY PT. VSS, NO SIGNS OF ACUTE DISTRESS NOTED. CALL LIGHT IN REACH, WILL CONTINUE TO MONITOR.
--- NOTE | 2019-08-29 05:00 | NUR ---
PT SLEEPING. MEDS GIVEN PER JAN, PD STARTED. VSS, NO SIGNS OF ACUTE DISTRESS NOTED. CALL LIGHT IN REACH, WILL CONTINUE TO MONITOR.
[2019-08-29 05:11] LABS: PLATELET ESTIMATE DECREASED
--- NOTE | 2019-08-29 07:00 | NUR ---
REPORT RECEIVED. ASSESSMENT COMPLETE PER FLOW SHEET. VSS. PT RESTING COMFORTABLY WILL CONTINUE TO MONITOR
--- NOTE | 2019-08-29 09:00 | NUR ---
PT ATE 50% BREAKFAST DENIES NEEDS WILL CONTINUE TO MONITOR
--- NOTE | 2019-08-29 11:20 | NUR ---
DR TORRES AT BEDSIDE GIVEN UDPATE. NEW ORDERS RECEIVED
[2019-08-29 12:00] LABS: CREATININE - URINE 46.1 mg/dL (30-125)
[2019-08-29 12:02] LABS: PRO/CRE RATIO URINE 5.7 mg/g
--- NOTE | 2019-08-29 13:15 | NUR ---
COMPLETE BB LINEN CHANGE ADM LARGE LOOSE GREEN BM NOTED. PT DENIES NEEDS PT RESTING COMFORTABLY WILL CONTINUE TO MONITOR
--- NOTE | 2019-08-29 18:41 | NUR ---
RECEIVED PT FROM ICU VIA BED. PT IS LETHARGIC R/T MORHPINE ADMININSTRATION PRIOR TO TRANSFER. RR EVEN AND UNLABORED ON 2L 02. SODIUM BICARB INFUSING @100ML/HR VIA L.FOR PIV. NO S/S OF DISTRESS NOTED. PT DENIES ANY NEEDS. WILL CTM. QUICKSTART COMPLETED.
[2019-08-30] VITALS: BP 88/45
[2019-08-30 04:24] VITALS: BP 96/50
[2019-08-30 06:11] LABS: BASOPHILS 0.3 % (0-2); EOSINOPHILS 0.1 % (0-7); HEMATOCRIT 24.5 % (42.0-54.0); HEMOGLOBIN 8.9 g/dL (13.5-17.5); IMMATURE GRANULOCYTES 0.3 % (0-5); LYMPHOCYTES 20.6 % (15-50); MCH 31.3 pg (26.0-34.0); MCHC 36.3 g/dL (31.0-37.0); MCV 86.3 fL (80.0-100.0); MEAN PLATELET VOLUME 10.4 fL (7.4-10.4); MONOCYTES 5.3 % (2-11); NEUTROPHILS 73.4 % (40-80); RBC 2.84 10x6/uL (4.20-6.10); RDW 15.6 % (11.5-14.5); WBC 6.9 10x3/uL (4.8-10.8)
[2019-08-30 06:18] LABS: PLATELET COUNT 39 10x3/uL (130-400)
[2019-08-30 06:26] LABS: CREATININE - SERUM 2.9 mg/dL (0.6-1.3); MAGNESIUM - SERUM 1.8 mg/dL (1.8-2.4); PHOSPHOROUS 2.7 mg/dL (2.5-4.9); POTASSIUM - SERUM 4.1 mmol/L (3.5-5.1)
[2019-08-30 06:28] LABS: ANION GAP 12.1 mmol/L (8-16)
[2019-08-30 07:00] LABS: PLATELET ESTIMATE DECREASED
--- NOTE | 2019-08-30 07:20 | NUR ---
PT RESTING IN BED, SHIFT ASSESSMENT PERFORMED. VSS AND WNL. EMMANUEL CATHETER DRAINING YELLOW URINE FREELY VIA GRAVITY. LUISANA ALARM ON AND TESTED. WILL CONT TO FOLLOW POC
[2019-08-30 09:12] VITALS: BP 94/45
[2019-08-30 12:00] VITALS: BP 101/53
--- NOTE | 2019-08-30 12:37 | NUR ---
PT RESTING IN BED EATING LUNCH, DENIES ANY NEEDS AT THIS TIME. WILL CONT TO FOLLOW POC
--- NOTE | 2019-08-30 13:23 | NUR ---
SPOKE WITH BECKY STAUFFER DUE TO PT HAVING YEAST TO GROIN. NEW ORDER RECIEVED TO START NYSTATIN
--- NOTE | 2019-08-30 14:03 | NUR ---
Nutrition Follow-up: Pt reports that he has been eating fairly well but c/o nausea at time of interview; no vomiting. Drinking some Nepro but doesn't like as much as Glucerna. Diet: Renal ADA, Nepro BID Wt: 115# Last BM: 08/30 Labs noted: Glu 211, K+ 4.1, PO4 2.7, Ca 6.0, Alb 1.4 Meds noted: KDur, Humalog -May consider cardiac carb consistent diet. -RD following.
[2019-08-30 16:42] VITALS: BP 107/57
--- NOTE | 2019-08-30 17:13 | NUR ---
PT RESTING IN BED EATING SUPPER, DENIES ANY NEEDS AT THIS TIME, WILL CONT TO FOLLOW POC
--- NOTE | 2019-08-30 19:25 | NUR ---
REPORT RECEIVED, WILL CONTINUE POC. PATIENT IS A/O, CONFUSED AT TIMES. NO S/S OF DISTRESS OBSERVED, RR LABORED ON EXERTION ON 2L O2 VIA NC. IV TO LT IJ, SL, PATENT, DRSG C/D/I. IV TO LT FA SL, PATENT, DRSG C/D/I. EMMANUEL DRAINING BY GRAVITY TO LT SIDE OF BED, BLOODY URINE NOTED. PATIENT DENIES NEEDS AT THIS TIME. CL IN REACH, BED LOCKED AND LOWERED. WILL CTM.
[2019-08-30 20:30] VITALS: BP 99/53
[2019-08-31] VITALS (14 sets, daily range): BP systolic 82–113; BP diastolic 9–73
--- NOTE | 2019-08-31 00:09 | NUR ---
NEW MEPILEX DRESSING TO COCCYX AND LEFT HEEL APPLIED. PATIENT TOLERATED WELL. ELEVATED SCROTUM DUE TO SWELLING AND EXCORIATION. WILL CTM.
--- NOTE | 2019-08-31 00:15 | NUR ---
PATIENT HAD SMALL INCONT BM. CHG BATH GIVEN, EMMANUEL CARE PROVIDED, LINEN CHANGED.
[2019-08-31 05:21] LABS: BASOPHILS 0.3 % (0-2); EOSINOPHILS 3.6 % (0-7); HEMATOCRIT 26.6 % (42.0-54.0); HEMOGLOBIN 9.1 g/dL (13.5-17.5); IMMATURE GRANULOCYTES 0.3 % (0-5); LYMPHOCYTES 20.8 % (15-50); MCH 30.3 pg (26.0-34.0); MCHC 34.2 g/dL (31.0-37.0); MEAN PLATELET VOLUME 10.7 fL (7.4-10.4); MONOCYTES 4.2 % (2-11); NEUTROPHILS 70.8 % (40-80); RDW 15.9 % (11.5-14.5)
[2019-08-31 05:30] LABS: MCV 88.7 fL (80.0-100.0)
[2019-08-31 05:31] LABS: PLATELET COUNT 30 10x3/uL (130-400)
--- NOTE | 2019-08-31 05:39 | NUR ---
CURRENT PLATELET RESULTS ARE 30, CONSULT ALREADY PUT IN TO ABBIE.
[2019-08-31 05:54] LABS: ANION GAP 10.1 mmol/L (8-16); CARBON DIOXIDE 26.7 mmol/L (21.0-32.0); CREATININE - SERUM 2.6 mg/dL (0.6-1.3); MAGNESIUM - SERUM 1.9 mg/dL (1.8-2.4); PHOSPHOROUS 2.4 mg/dL (2.5-4.9); POTASSIUM - SERUM 3.8 mmol/L (3.5-5.1)
[2019-08-31 06:00] LABS: CALCIUM 6.1 mg/dL (8.5-10.1)
--- NOTE | 2019-08-31 06:05 | NUR ---
BLOOD SUGAR 76, CALCIUM 6.1
--- NOTE | 2019-08-31 07:20 | NUR ---
PT RESTING IN BED, SHIFT ASSESSMENT PERFORMED. COMPLETE LINEN CHANGE PROVIDED. EMMANUEL CATHETER DRAINING LILIANA TINGED URINE VIA GRAVITY. REPLACED MEPILEX TO COCCYX. CALL LIGHT WITHIN REACH. WILL CONT TO FOLLOW POC
[2019-08-31 09:40] LABS: HEMATOCRIT 27.7 % (42.0-54.0); HEMOGLOBIN 9.5 g/dL (13.5-17.5); IMMATURE GRANULOCYTES 0.7 % (0-5); MCH 30.6 pg (26.0-34.0); MCHC 34.3 g/dL (31.0-37.0); MCV 89.4 fL (80.0-100.0)
[2019-08-31 09:42] LABS: PLATELET COUNT 28 10x3/uL (130-400)
--- NOTE | 2019-08-31 10:00 | NUR ---
COMPLETE LINEN CHANGE AND MACHELLE CARE PROVIDED. MEPILEX TO COCCYX CHANGED. WILL CONT TO FOLLOW POC
[2019-08-31 10:01] LABS: APTT 48.1 SECONDS (22.8-39.4); INR 2.51 (0.85-1.17); PROTIME 26.4 SECONDS (11.6-15.0)
[2019-08-31 10:06] LABS: BASOPHILS 1 % (0-2); EOSINOPHILS 2 % (0-7); HYPOCHROMASIA 2+; LYMPHOCYTES 15 % (15-50); MONOCYTES 3 % (2-11); NEUTROPHILS 75 % (40-80); PLATELET ESTIMATE DECREASED; SMUDGE CELLS 1+; TARGET CELLS 2+
[2019-08-31 11:58] LABS: PATH REVIEW PERIPHERAL SMEAR REVIEWED
--- NOTE | 2019-08-31 12:26 | NUR ---
PT RESTING IN BED EATING LUNCH. DENIES ANY NEEDS AT THIS TIME, WILL CONT TO FOLLOW POC
--- NOTE | 2019-08-31 15:14 | NUR ---
ASSISTED PT WITH TRIMMING LEARY AND SHAVING. CLEANSED LEFT IJ PIV INSERTION SITE AND APPLIED CLEAN DRESSING. CALL LIGHT WITHIN REACH. WILL CONT TO FOLLOW POC
--- NOTE | 2019-08-31 16:57 | NUR ---
REPORT GIVEN TO ICU NURSE, TRANSFERRED PT TO ICU ORDERED FOR LOW PLATELETS AND HYPOTENSION
--- NOTE | 2019-08-31 17:38 | NUR ---
PT ARRIVED TO ROOM AT 1618. ALERT AND CONVERSANT. HAD SOILED LINENS. DR TORRES AGREED TO RECTAL TUBE PLACEMENT. ONE WAS PLACED. PT CLEANED UP. NEW DRESSING APPLIED TO SACRAL AREA. LARGE BLOOD WEEPING UNSTAGEABLE WOUND NOTED. RIGHT HIP HAD DRESSING PLACED OVER JESSICA PROMINENCE. DRESSING REMOVED, SITE CLEANED, SCABS NOTED, NEW DRESSING APPLIED FOR PROTECTION. DRESSING TO LEFT HEEL/ANKLE REMAINS INTACT. PT HAS DARK COLA COLORED URINE IN EMMANUEL. EMMANUEL CARE PROVIDED AT TIME OF BOWEL MOVEMENT CLEAN UP. PT GLUCOSE CHECKED AND FOUND TO BE 27. WAS GIVEN AMP OF D50. RECHECK OVER 170. PT PROVIDED WITH DINNER TRAY. IS CURRENTLY EATING. GIRLFRIEND AT BEDSIDE.
--- NOTE | 2019-08-31 19:00 | NUR ---
SHIFT ASSESSMENT COMPLETE. PT IS A&O X4 WITH NO COMPLAINTS OF PAIN OR DISCOMFORT. PERRLA, 3 MM, BRISK REACTION TO LIGHT. RR SHALLOW, NC ON @ 2L/MIN HUMIDIFIED AIR, O2 SAT 98-100%. DIMINISHED BREATH SOUNDS HEARD BILAT THROUGHOUT ALL LOBES. S1S2 AUDIBLE, HR 103 SINUS TACH SHOWING ON MONITOR. ABD FLAT AND NONTENDER TO TOUCH, BS ACTIVE X4. L JUGULAR PIV S/L. L FA PIV INFUSING NS @ KVO. EMMANUEL CATH INTACT DRAINING DARK, LILIANA COLORED URINE. RECTAL TUBE IN PLACE, LINENS SOILED, RECTAL TUBE LEAKING. DEFLATED CUFF AND REPOSITIONED, REINFLATED, SEEMS TO BE FUNCTIONING AT THIS TIME. LARGE UNSTAGEABLE PRESSURE ULCER ON COCCYX, CLEANED, MEPILEX PLACED. R HIP PRESSURE ULCER, MEPILEX PLACED. R BKA, SLEEVE ON, REMOVED, DEEP TISSUE INJURY NOTED, ELEVATED ON PILLOW. L HEEL DRESSING CDI. REPOSITIONED FOR COMFORT. PT DENIES ANY NEEDS AT THIS TIME. CALL LIGHT IN REACH, BED IN LOWEST POSITION. WILL CONT WITH POC.
--- NOTE | 2019-08-31 21:00 | NUR ---
FSBS 88, PT STATES THAT HE WOULD NOT LIKE TO RECIEVE ANY INSULIN TONIGHT D/T DECREASED BLOOD SUGARS. PO MEDS TAKEN WITH APPLESAUCE WITHOUT DIFFICULTY. CALL LIGHT IN REACH, BED IN LOWEST POSITION. WILL CONT WITH POC.
--- NOTE | 2019-08-31 23:00 | NUR ---
REASSESSMENT COMPLETE. LINENS SOILED, COMPLETE LINEN CHANGE AND PARTIAL BED BATH PROVIDED. REDRESSED R HIP AND COCCYX DRESSINGS. PT ABLE TO ASSIST WITH TURNING. NO CHANGES IN PT CONDITION. VSS. SEE FLOWSHEET FOR FURTHER DETAILS. WILL CONT TO MONITOR CLOSELY.
[2019-09-01] VITALS (25 sets, daily range): BP systolic 87–131; BP diastolic 53–93
--- NOTE | 2019-09-01 01:00 | NUR ---
PT RESTING WITH NO SIGNS OF ACUTE DISTRESS NOTED. VSS. WILL CONT WITH POC.
--- NOTE | 2019-09-01 03:00 | NUR ---
REASSESSMENT COMPLETE. SEE FLOWSHEET FOR FURTHER DETAILS. PT SITTING UP IN BED EATING PATATO CHIPS. VSS. HE DENIES ANY NEEDS AT THIS TIME. CALL LIGHT IN REACH, BED IN LOWEST POSITION. WILL CONT WITH POC.
--- NOTE | 2019-09-01 04:00 | NUR ---
PT FOUND IN BED SLUMPED TO ONE SIDE, IRREGULAR RESP, UNABLE TO AWAKEN. FSBS REGISTERED "LO." HYPOGLYCEMIC PROTOCOL FOLLOWED.
--- NOTE | 2019-09-01 04:08 | NUR ---
FSBS RECHECK, READING 270. PT WILL NOT RESPOND TO VERBAL OR PAINFUL STIMULI. PAGING PRIMARY FOR FURTHER INSTRUCTION.
--- NOTE | 2019-09-01 04:16 | NUR ---
PAGED DR. TORRES
--- NOTE | 2019-09-01 04:20 | NUR ---
SPOKE WITH BECKY NOBLE APN. NEW ORDERS RECIEVED.
[2019-09-01 04:41] LABS: BASOPHILS 0.4 % (0-2); EOSINOPHILS 2.4 % (0-7); HEMATOCRIT 26.5 % (42.0-54.0); HEMOGLOBIN 8.8 g/dL (13.5-17.5); IMMATURE GRANULOCYTES 0.6 % (0-5); LYMPHOCYTES 20.4 % (15-50); MCH 29.7 pg (26.0-34.0); MCHC 33.2 g/dL (31.0-37.0); MCV 89.5 fL (80.0-100.0); MONOCYTES 6.7 % (2-11); NEUTROPHILS 69.5 % (40-80); RBC 2.96 10x6/uL (4.20-6.10); RDW 15.3 % (11.5-14.5); WBC 8.4 10x3/uL (4.8-10.8)
[2019-09-01 04:45] LABS: PLATELET COUNT 34 10x3/uL (130-400)
--- NOTE | 2019-09-01 04:50 | NUR ---
TAKING PT TO CT.
[2019-09-01 04:57] LABS: ALBUMIN 1.3 g/dL (3.4-5.0); ANION GAP 8.4 mmol/L (8-16); BILIRUBIN - TOTAL 1.62 mg/dL (0.2-1.3); CARBON DIOXIDE 25.7 mmol/L (21.0-32.0); CREATININE - SERUM 2.5 mg/dL (0.6-1.3); MAGNESIUM - SERUM 1.8 mg/dL (1.8-2.4); PHOSPHOROUS 2.7 mg/dL (2.5-4.9); POTASSIUM - SERUM 4.1 mmol/L (3.5-5.1); PROTEIN - SERUM 4.8 g/dL (6.4-8.2); VANCOMYCIN - RANDOM 11.1 ug/mL (10.0-20.0)
[2019-09-01 04:58] LABS: CALCIUM 6.3 mg/dL (8.5-10.1)
--- NOTE | 2019-09-01 05:00 | NUR ---
PT BACK FROM CT.
--- NOTE | 2019-09-01 05:10 | NUR ---
PARTIAL LINEN CHANGE PROVIDED.
--- NOTE | 2019-09-01 05:19 | NUR ---
PT AROUSES TO VOICE AND STIMULI. HE IS UNABLE TO FOLLOW COMMANDS AT THIS TIME. AWAITING CT RESULTS. FSBS 121. VSS. WILL CONT CLOSE MONITORING.
--- NOTE | 2019-09-01 06:19 | NUR ---
FSBS DROPPING RAPIDLY. PAGING RENAL.
--- NOTE | 2019-09-01 06:23 | NUR ---
SPOKE WITH DR. OTERO. D/C D5W. NEW ORDER FOR D10 @ 50 ML/HR AND Q1H FSBS.
--- NOTE | 2019-09-01 06:41 | NUR ---
FSBS 75. PT IS SPEAKING AT THIS TIME AND IS ABLE TO FOLLOW COMMANDS. HE IS STILL LETHARGIC. WILL CONT CLOSE MONITORING.
--- NOTE | 2019-09-01 08:02 | NUR ---
TRY TO TALK TO PATIENT, KEEPS ASKING WHAT, DIFFICULTY TO UNDERSTAND HIS SPEECH. AWAKES EASILY. BREAKFAST SET UP FEED A FEW BITES, TRYING TO FEED HIMSELF, DRANK HIS MILK. SKIN WARM AND DRY. IV LEFT FOREARM WITHOUT REDNESS OR SWELLING INFUSING WITH D10W AT 50 ML HOUR. LIEN CAGE PATENT.
--- NOTE | 2019-09-01 10:00 | NUR ---
HERE. PATIENT SCREAMING AT HER TOO. ONE MOMENT HE SAYS IS GOING TO THROW UP THEN ASKING FOR SOMETHING TO EAT. WILL SCREAM HELP ME HELP ME AND NURSE ENTERS ROOM AND HE WANTS TO KNOW WHAT IS FOR LUNCH. FOR WANT TO CALL HOME TO PLAN HIS , WANTS HIS CELL PHONE THAT IS SETTING NEXT TO HIS HAND. CONTINOUSLY SCREAMING OUT FOR HELP DOES NOT FEEL GOOD. IV PULLED OUT DURING REPOSITIONING. RESTARTED RIGHT WRIST X 2 STICKS PATIENT TOLERATED FAIR. RECTAL TUBE BAG FULL OF LIGHT BORJA BROWN STOOL. EMMANUEL PATENT DARK LILIANA CLEAR URINE. MONITOR SR. BLOOD SUGAR STILL UP AND DOWN.
--- NOTE | 2019-09-01 12:00 | NUR ---
DR. BONILLA AND BRANDEN HERE. ORDERS FOR TEX RECEIVED FOR PATIENT CONTINOUSLY SCREAMING OUT. IV PATENT. NO RESP DISTRESS. CLEAN DRESSING APPLIED TO LARGE BLACK AREA ON COCCYX/BUTTOCK AREA. RIGHT HIP AREA MEDIPLEX APPLIED.
--- NOTE | 2019-09-01 14:00 | NUR ---
AWAKES EASILY REPOSITIONED. STILL SOME SCREAMING OUT FOR HELP. WANTS TO GO OUTSIDE. NOT BACK EARLIER. REMINDED NUMBEROUS TIMES, HE IS NOT STABLE ENOUGH TO GO OUTSIDE AT THIS TIME.
--- NOTE | 2019-09-01 16:00 | NUR ---
HERE BROUGHT PATIENT SOME FOOD. APPETITE POOR. STILL SCREAMING OUT AT TIMES, MUCH LOWER TONE, WANTS TO GO OUT AND SMOKE, EXPLAINED AND NURSE EXPLAINED WHY HE CAN NOT GO. PATIENT CONTINUES D10W AT 50 ML HOUR TO MAINTAIN ACCUCHECK.
--- NOTE | 2019-09-01 19:33 | NUR ---
RESTING WELL AT THIS TIME. NO DISTRESS.
--- NOTE | 2019-09-01 20:19 | NUR ---
FSBS 98 AT THIS TIME PT AAO X3 - SLURRED SPEECH,
--- NOTE | 2019-09-01 20:39 | NUR ---
ASSISTED PATIENT UP IN BED AT 90 DEGREES FOR PO MEDICATION ADMINISTRATION. INSTRUCTED PATIENT TO TAKE SIP OF TEA FROM STRAW BEFORE MEDICATIONS WERE ADMINISTERED. THIS NURSE WITNESSED POSSIBLE ASPIRATION OF LIQUIDS AT THIS TIME. HOLD PO MEDICATION
--- NOTE | 2019-09-01 20:52 | NUR ---
2ND UNIT PRBC INITIATED AT THIS TIME
--- NOTE | 2019-09-01 21:31 | NUR ---
called to check patient status, update given all questions answered
--- NOTE | 2019-09-01 23:19 | NUR ---
REASSESSMENT COMPLETED SEE FLOWSHEET, PT HOT TO TOUCH AFEBRILE, BS STABLE. ORIENTED X3 - LETHARGIC AROUSES TO VOICE. VSS CPOC
[2019-09-02] VITALS (24 sets, daily range): BP systolic 93–140; BP diastolic 46–83
--- NOTE | 2019-09-02 02:23 | NUR ---
linen change completed at this time
--- NOTE | 2019-09-02 03:35 | NUR ---
PATIENT AAO X4 - REASSESSMENT COMPLETED SEE FLOWSHEET
[2019-09-02 04:32] LABS: BASOPHILS 0.1 % (0-2); EOSINOPHILS 3.5 % (0-7); HEMATOCRIT 24.8 % (42.0-54.0); HEMOGLOBIN 8.4 g/dL (13.5-17.5); IMMATURE GRANULOCYTES 0.7 % (0-5); LYMPHOCYTES 20.1 % (15-50); MCH 30.4 pg (26.0-34.0); MCHC 33.9 g/dL (31.0-37.0); MCV 89.9 fL (80.0-100.0); MEAN PLATELET VOLUME 11.5 fL (7.4-10.4); MONOCYTES 8.4 % (2-11); NEUTROPHILS 67.2 % (40-80); RBC 2.76 10x6/uL (4.20-6.10); RDW 15.5 % (11.5-14.5); WBC 7.2 10x3/uL (4.8-10.8)
[2019-09-02 04:42] LABS: PLATELET COUNT 46 10x3/uL (130-400)
[2019-09-02 05:03] LABS: ANION GAP 12.2 mmol/L (8-16); CREATININE - SERUM 2.1 mg/dL (0.6-1.3); MAGNESIUM - SERUM 1.5 mg/dL (1.8-2.4); PHOSPHOROUS 2.7 mg/dL (2.5-4.9); POTASSIUM - SERUM 4.2 mmol/L (3.5-5.1); VANCOMYCIN - RANDOM 18.2 ug/mL (10.0-20.0)
[2019-09-02 05:04] LABS: CALCIUM 6.3 mg/dL (8.5-10.1)
[2019-09-02 05:48] LABS: PLATELET ESTIMATE DECREASED
--- NOTE | 2019-09-02 07:00 | NUR ---
SHIFT ASSESSMENT COMPLETED. PT CARE ASSUMED. MONITORS ON AND WORKING, VITALS STABLE. PT AWAKE AND ALERT, SEE FLOW SHEET FOR FURTHER DETAILS. WILL CONTINUE TO OBSERVE.
--- NOTE | 2019-09-02 09:00 | NUR ---
PT TURNED AND REPOSITIONED FOR COMFORT, MONITORS ON AND WORKING. VITALS STABLE. FAMILY AT BEDSIDE, UPDATE PROVIDED. WILL CONTINUE TO OBSERVE.
--- NOTE | 2019-09-02 09:19 | NUR ---
Nutrition follow-up: Diet: consistent CHO PO intake 25-50% of some meals; 100% of some HS snacks; appetite remains poor +BM Labs reviewed; A1c: 9.3% Nutrition dx of severe malnutrition 2/2 decreased appetite and wt loss. Will continue to provide food choices and honor food preferences within diet restrictions. RDN following.
--- NOTE | 2019-09-02 11:00 | NUR ---
PT TURNED AND REPOSITIONED FOR COMFORT, MONITORS ON AND WORKING, VITALS STABLE. SEE FLOW SHEET FOR FURTHER DETAILS. WILL CONTINUE TO OBSERVE.
--- NOTE | 2019-09-02 13:00 | NUR ---
PT TURNED AND REPOSITIONED, MONITORS ON AND WORKING, VITALS STABLE. FAMILY AT BEDSIDE, UPDATE PROVIDED. FSBS HAS MAINTAINED 200 AND ABOVE ON THIS SHIFT, CALL LIGHT WITHIN REACH, WILL CONTINUE TO OBSERVE.
--- NOTE | 2019-09-02 13:50 | NUR ---
PT HAD LOOSE BM THAT POOLED OUT AROUND RECTAL TUBE. PT CLEANED UP AND WAS STARTING CHG BATH ON BACK WHEN PT STARTED SCREAMING THAT IT BURNED. SOAP RINSED OFF AND BATH CONTINUED WITH REGULAR SOAP
--- NOTE | 2019-09-02 14:38 | NUR ---
Mr. 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 It is unstageable. He has numerous bruised areas on both arms. He also has a healing stage 2 pressure injury on the right hip with the open area measuring 2cm x 1cm. Healed skin is noted surrounding it. Left heel has a deep tissue injury that measures 8cm x 6cm. It is purple/maroon colored. There is a blistered area that is partially ruptured. There is no odor noted from any of the wounds. Recommendations: -Mepilex sacral dressing to bottom -turn/reposition q 2 hours -elevate heels off bed -cushion pressure areas (right hip) with mepilex dressings Pt has been placed on an air overlay mattress. His left heel was painted with betadine, covered with 4x4s and wrapped with kerlix. Mepilex sacral dressing applied to wound on sacrum and a mepilex dressing applied to right hip for cushion. Wound care will continue monitoring.
--- NOTE | 2019-09-02 15:00 | NUR ---
NO CHANGES, SEE FLOW SHEET FOR FURTHER DETAILS. MONITORS ON AND WORKING, VITALS STABLE. CALL LIGHT WITHIN REACH, WILL CONTINUE TO OBSERVE.
--- NOTE | 2019-09-02 17:00 | NUR ---
D10 D/C FSBS HAS REMAINED ABOVE 200 ON THIS SHIFT, PT AWAKE AND ALERT EATING DINNER, AT BEDSIDE, MONITORS ON AND WORKING, VITALS STABLE. CALL LIGHT WITHIN REACH, WILL CONTINUE TO OBSERVE.
--- NOTE | 2019-09-02 19:30 | NUR ---
PT AROUSES EASILY, VOICES NEEDS, R PIV INTACT WITH NS @ [facility], EMMANUEL PATENT TO BSD, RECTAL TUBE IN PLACE DRAINING LOOSE STOOL, NO C/O @ THIS TIME, WILL CONT TO MONITOR
--- NOTE | 2019-09-02 21:30 | NUR ---
PT RESTING QUIETLY, VITALS STABLE
--- NOTE | 2019-09-02 23:40 | NUR ---
PT RECTAL TUBE LEAKED, BATHED PER STAFF, WHEN TURNED ON SIDE NOTED SMALL 1 MM HOLE TO BACK OF RIGHT UPPER THIGH WITH PURULENT DRAINAGE, SQUEEZED AREA AND DRAINED LARGE AMOUNT OF PURULENT BROWN DRAINAGE FROM SITE, WILL CONT TO MONITOR
[2019-09-03] VITALS (12 sets, daily range): BP systolic 113–165; BP diastolic 64–103
--- NOTE | 2019-09-03 01:00 | NUR ---
pt sleeping with no distress noted, vitals stable
--- NOTE | 2019-09-03 03:15 | NUR ---
PT REMAINS ASLEEP, VITALS STABLE, WILL CONT TO MONITOR
[2019-09-03 04:28] LABS: BASOPHILS 0.4 % (0-2); EOSINOPHILS 3.9 % (0-7); HEMATOCRIT 25.8 % (42.0-54.0); HEMOGLOBIN 8.7 g/dL (13.5-17.5); IMMATURE GRANULOCYTES 0.4 % (0-5); LYMPHOCYTES 22.5 % (15-50); MCH 30.6 pg (26.0-34.0); MCHC 33.7 g/dL (31.0-37.0); MCV 90.8 fL (80.0-100.0); MONOCYTES 9.7 % (2-11); NEUTROPHILS 63.1 % (40-80); RBC 2.84 10x6/uL (4.20-6.10); RDW 15.2 % (11.5-14.5); WBC 8.3 10x3/uL (4.8-10.8)
[2019-09-03 04:42] LABS: ANION GAP 15.2 mmol/L (8-16); CALCIUM 7.2 mg/dL (8.5-10.1); CARBON DIOXIDE 21.6 mmol/L (21.0-32.0); MAGNESIUM - SERUM 1.8 mg/dL (1.8-2.4); PHOSPHOROUS 3.3 mg/dL (2.5-4.9); POTASSIUM - SERUM 3.8 mmol/L (3.5-5.1)
[2019-09-03 04:46] LABS: PLATELET COUNT 105 10x3/uL (130-400)
--- NOTE | 2019-09-03 06:00 | NUR ---
PT RECTAL TUBE LEAKING, CLEANED PER STAFF, PT AROUSES EASILY, NO DISTRESS NOTED
--- NOTE | 2019-09-03 07:00 | NUR ---
BEDSIDE REPORT RECEIVED. ASSESSMENT COMPLETED PER FLOWSHEET, SEE FLOWSHEET FOR ADDITIONAL INFORMATION. PT STATED "I AM LEAVING TODAY, TODAY IS MY LAST DAY. I AM LEAVING THIS HOSPITAL TODAY." PT FAMILY CALLED, PT FAMILY STATED "I KNEW HE WOULD DO THIS, HE JUST WANTS TO LEAVE TO SMOKE CIGARETTES." 0900 NICOTINE PATCH GIVEN. VSS. WILL CONT TO MONITOR.
[2019-09-03 08:11] LABS: HEPATITIS C ANTIBODY 0.3 S/CO RAT (0.0-0.9)
[2019-09-03 08:11] LABS: HAPTOGLOBIN 124 mg/dL (34-200)
--- NOTE | 2019-09-03 09:00 | NUR ---
PT TURNING SELF, URINE SPECIMEN COLLECTED PER ORDERS. NO NEEDS OR DISTRESS NOTED AT THIS TIME. VSS. WILL CONT TO MONITOR.
[2019-09-03 09:41] LABS: APPEARANCE CLOUDY (CLEAR); COLOR YELLOW (YELLOW); NITRITE NEGATIVE (NEGATIVE); PROTEIN 2+ mg/dL (NEGATIVE)
[2019-09-03 09:42] LABS: BILIRUBIN NEGATIVE (NEGATIVE); GLUCOSE 50 mg/dL (NEGATIVE); KETONE NEGATIVE (NEGATIVE); UROBILINOGEN NORMAL (NORMAL)
[2019-09-03 09:43] LABS: CREATININE - URINE 60.9 mg/dL (30-125); PRO/CRE RATIO URINE 3.9 mg/g; PROTEIN - URINE 238.3 mg/dL (0.0-11.9)
[2019-09-03 09:46] LABS: RED CELLS - URINE 25-50 /hpf (0-5); WHITE CELLS - URINE >50 /hpf (NEGATIVE)
[2019-09-03 09:47] LABS: BACTERIA MODERATE /hpf (NEGATIVE); EPITHELIAL CELLS NSEEN /hpf (0-5)
[2019-09-03 09:48] LABS: YEAST <1+ /hpf (NONE SEEN)
--- NOTE | 2019-09-03 11:00 | NUR ---
TURNED PT TO LEFT SIDE. DENIES ANY NEEDS OR DISTRESS AT THIS TIME. VSS. WILL CONT TO MONITOR.
--- NOTE | 2019-09-03 15:45 | NUR ---
NEW PATIENT ICU TRANSFER VIA AND HOSPITAL STAFF. PATIENT HAS RT BKA WITH RECTAL TUBE AND EMMANUEL CATHETER IN PLACE. PATIENT HAS MEPILEX INTACT TO COCCYX AND DRESSING INTACT TO LEFT HEEL WOUND. PATIENT IS VERY AGITATED AND WILL NOT TRANSFER FROM TO BED. PATIENT STATES' IM GETTING THE HELL OUT OF HERE." PATIENT PROCEEDS TO WHEEL HIMSELF OUT OF UNIT. CONTACTED SATINDER CARRASCO VACCINATOR WHO CAME TO UNIT AND SHE CALLED SECURITY. PATIENT BROUGHT BACK TO ROOM . PATIENT REFUSES TO LEAVE BUT AGREEES NOT TO LEAVE ROOM. PATIENT DOES LEAVE ROOM AND UNIT AGAIN. CALLED NARGIS BURT. MULTIPLE PERSONNEL COME TO HALLWAY OUTSIDE OF UNIT TO ASSIST WITH PATIENT. YESSICA PSYCH NURSE PROCEEDS TO SPEAK AND CALM PATIENT AND WHEELS PATIENT BACK TO ROOM. PATIENT YELLING SAYNG HE WANTS TO CHECK HIMSELF OUT AND CURSING AT STAFF. ASST SIENA WOLF REQUEST THIS NURSE CALL PHYSICIAN. SPOKE WITH DR BONILLA . RECIEVED NEW ORDER FOR MARITZA AND TEX. MEDICATED PATIENT WITH BOTH. PATIENTS GIRLFRIEND COMES TO ROOM. PATIENT REQUESTS THAT SHE TAKE HIM HOME. SHE SAYS NO THAT HE IS TOO SICK AND SHE CANNOT TAKE HIM HOME. PATIENT CONTINUES TO YELL BUT AGREES TO BE TRANSFERRED TO BED. GIRLFRIEND WITH PATIENT. PATIENT IS NOT YELLING OR CURSING ANYMORE AND APPEARS CALMER. WILL CONTINUE TO MONITOR. SR UP X 2 BED IN LOW POSITION AND CALL LIGHT IN REACH.
--- NOTE | 2019-09-03 18:00 | NUR ---
PATIENT LAYING IN BED WITH EYES CLOSED AND BREATHING EVENLY. GIRLFRIEND HAS LEFT TO GO HOME. WILL CONTINUE TO MONITOR. SR UP X 2 BED IN LOW POSTIION AND CALL LIGHT IN REACH.
--- NOTE | 2019-09-03 19:33 | NUR ---
REPORT RECEIVED, WILL CONTINUE POC. PATIENT IS A/OX3, UP WITH MAX ASSIST. PATIENG LYING ON RIGHT SIDE, EYES CLOSED. NO S/S OF DISTRESS OBSERVED, RR EVEN AND UNLABORED ON ROOM AIR. EMMANUEL ON LEFT SIDE OF BED, DRAINING BY GRAVITY. RECTAL TUBE IN PLACE, DRAINING BY GRAVITY TO LEFT SIDE OF BED. CL IN REACH, BED LOCKED AND LOWERED. WILL CTM.
--- NOTE | 2019-09-03 22:01 | NUR ---
PATIENT IS REFUSING HS MEDS, STATING, "NOT RIGHT NOW". HE DID ALLOW BS TO BE CHECKED BUT REFUSED INSULIN. BS 212. CL IN REACH, BED LOCKED AND LOWERED. WILL CTM.
[2019-09-04 00:04] VITALS: BP 122/59
--- NOTE | 2019-09-04 04:00 | NUR ---
EMPTIED 525ML OF LILIANA URINE FROM EMMANUEL. RECTAL TUBE 100ML. PATIENT REFUSED VS THIS AM. CL IN REACH, BED LOCKED AND LOWERED. WILL CTM.
[2019-09-04 07:06] LABS: BASOPHILS 0.4 % (0-2); EOSINOPHILS 2.8 % (0-7); HEMATOCRIT 28.6 % (42.0-54.0); HEMOGLOBIN 9.2 g/dL (13.5-17.5); IMMATURE GRANULOCYTES 0.5 % (0-5); LYMPHOCYTES 17.1 % (15-50); MCH 29.9 pg (26.0-34.0); MCHC 32.2 g/dL (31.0-37.0); MONOCYTES 9.4 % (2-11); NEUTROPHILS 69.8 % (40-80); RBC 3.08 10x6/uL (4.20-6.10); RDW 15.6 % (11.5-14.5); WBC 9.4 10x3/uL (4.8-10.8)
--- NOTE | 2019-09-04 07:18 | NUR ---
PT RESTING, EYES CLOSED. RR EVEN AND UNLABORED. NO DISTRESS NOTED. WILL CONTINUE TO MONITOR.
[2019-09-04 07:39] LABS: ANION GAP 16.8 mmol/L (8-16); CALCIUM 7.5 mg/dL (8.5-10.1); CARBON DIOXIDE 18.8 mmol/L (21.0-32.0); CREATININE - SERUM 1.7 mg/dL (0.6-1.3); PHOSPHOROUS 3.9 mg/dL (2.5-4.9); POTASSIUM - SERUM 4.6 mmol/L (3.5-5.1); VANCOMYCIN - RANDOM 10.3 ug/mL (10.0-20.0)
[2019-09-04 07:49] LABS: MCV 92.9 fL (80.0-100.0); PLATELET COUNT 174 10x3/uL (130-400)
--- NOTE | 2019-09-04 08:56 | NUR ---
GUICHO RN STATES UPON WALKING INTO ROOM THIS AM, PT STATED "WHO ARE YOU? WHAT DO YOU WANT? GET OUT." PT REFUSED ALL MEDICATION THIS MORNING, HESITANTLY ALLOWED ME TO GET VITALS. AND REFUSED TURNING ONTO LEFT SIDE TO RELIEVE PRESSURE OFF OF WOUND. DR. LEIVA ALSO ATTEMPTED TO TALK WITH PT AND HE ASKED HER TO LEAVE ROOM WELL. PT REQUESTED SEVERAL TIMES TO GO HOME. EDIE LIMA MADE AWARE OF HIS REQUEST.
[2019-09-04] MEDS ORDERED: DIFLUCAN100 MG PO (09:43)
[2019-09-04] MEDS ORDERED: NYSTATIN OINTME15 GM TOPICAL (09:44)
--- NOTE | 2019-09-04 10:01 | MORECARE ---
CASE MANAGEMENT DISCHARGE SUMMARY PATIENT: ELIE MARIA UNIT: [id number] ADM DATE: 08/27/19 AGE: 49 : 66 SEX: M ROOM/BED: D.1207 AUTHOR: DHEERAJ ELIZABETH PHYSICIAN: REFERRING PHYSICIAN: ALEENA TORRES DO DATE OF SERVICE: 09/04/19 Discharge Plan Patient Name: ELIE MARIA Facility: [facility]:[place] : 1970 Planned Disposition: Home with Home Health Anticipated Discharge Date: Discharge Date: Expected LOS: Initial Reviewer: [email or web address] Initial Review Date: 08/27/2019 Generated: 09/04/19 11:00 am Comments DCP- Discharge Planning Updated by [email or web address]: Ondina Lopez on 09/04/19 8:[address] Patient Name: ELIE MARIA Encounter No: [id number] : 1970 Primary Insurance: MEDICAID [place] Anticipated DC Date: Planned Disposition: Home with Home Health External Planned Provider: : DCP follow-up note: Patient in agreement with discharge plan. DISCHARGE TO HOME AND [facility]. No changes to plan. Case management will follow and assist as needed. Ondina Lopez DCP- Discharge Planning Updated by [id number]: Elen Jean on 08/28/19 5:[address] Patient Name: ELIE MARIA Admission Status: ER Accout number: [id number] Admission Date: 08-27-2019 : 1970 Admission Diagnosis: Attending: ALEENA TORRES Current LOS: 1 Anticipated DC Date: Planned Disposition: Home with Home Health Primary Insurance: MED[place]ID [place] Discharge Planning Comments: CM met with patient at bedside after explaining CM role and obtaining verbal consent. Patient lives at home with his significant other Dusty where he is independent with his care and plans to return there upon discharge. Patient feels this would be a safe discharge. CM discussed availability / needs of home health and medical equipment. Patient is under care of [facility] and plans to resume care with them upon discharge. MADHAVI signed Patient denies any discharge needs at this time. Patient states he will have his family drive him home upon discharge. CM will continue to follow and assist as needed with discharge planning / needs. Printed Circuit Boards Pinner: Elen Jean DCPIA - Discharge Planning Initial Assessment Updated by [email or web address]: Elen Jean on 08/28/19 6:05 pm * Is the patient Alert and Oriented? Yes * How many steps to enter\exit or inside your home? * PCP FLIP * [facility] * Preadmission Environment Home with Family * ADLs Partial Dependent * Partial ADLs (Assistance needed) Ambulation Bathing Dressing Eating Medication Management Toileting Transfers * Other Equipment WALKER, W/C * List name and contact numbers for known caregivers / representatives who currently or will assist patient after discharge: DUSTY MARY [facility]- [phone] * Verbal permission to speak to the caregivers and representatives has been obtained from the patient. Yes * Community resources currently utilized Home Health * Please name any agencies selected above. [facility] * Additional services required to return to the preadmission environment? No * Can the patient safely return to the preadmission environment? Yes * Has this patient been hospitalized within the prior 30 days at any hospital? No Coverage Notice Reviewer: [id number] - Elen Jaen Notice Issued Date-Time: 08/28/2019 18:07 Notice Type: Patient Choice Letter Notice Delivered To: Patient Relationship to Patient: Law Office Assistant Name: Delivery Method: HAND - Hand Delivered My Days: Prior Verbal Notification: Recipient Understood Notice: Yes Recipient Signature: Yes Med Rec Note Co-signed by Attending: Coverage Notice Comment: Last DP export: 08/28/19 5:11 p Patient Name: ELIE MARIA Page [phone] at 1001 All edits/amendments must be made on the electronic document DICTATION DATE: 09/04/19 1000 LADLE REPAIRMAN: DM 09/04/19 1000 RPT#: [id number] DC DATE: STATUS: ADM IN [facility] [address] [place] [address] END OF REPORT
--- NOTE | 2019-09-04 11:25 | NUR ---
PT RECTAL TUBE LEAKED ONTO BED. LINENS AND GOWN CHANGED. PT CLEANED. MEPILEX CHANGED TO LEFT BUTTOCK. DRESSING CHANGED TO RIGHT BUTTOCK. PT REPOSITIONED TO COMFORT. BLADDER TRAINING STARTED. CONTACTED GIRLFRIEND TO INFORM OF PT'S D/C. STATED SHE WOULD BE HERE AROUND 1530.
--- NOTE | 2019-09-04 13:32 | MORECARE ---
CASE MANAGEMENT DISCHARGE SUMMARY PATIENT: ELIE MARIA UNIT: [id number] ADM DATE: 08/27/19 AGE: 49 : 66 SEX: M ROOM/BED: D.1207 AUTHOR: DHEERAJ ELIZABETH PHYSICIAN: REFERRING PHYSICIAN: ALEENA TORRES DO DATE OF SERVICE: 09/04/19 Discharge Plan Patient Name: ELIE MARIA Facility: [facility]:[place] : 1970 Planned Disposition: Home with Home Health Anticipated Discharge Date: Discharge Date: Expected LOS: Initial Reviewer: [email or web address] Initial Review Date: 08/27/2019 Generated: 09/04/19 2:32 pm Comments DCP- Discharge Planning Updated by [email or web address]: Ondina Lopez on 09/04/19 8:[address] Patient Name: ELIE MARIA Encounter No: [id number] : 1970 Primary Insurance: MEDICAID [place] Anticipated DC Date: Planned Disposition: Home with Home Health External Planned Provider: : DCP follow-up note: Patient in agreement with discharge plan. DISCHARGE TO HOME AND [facility]. No changes to plan. Case management will follow and assist as needed. Ondina Lopez DCP- Discharge Planning Updated by [email or web address]: Elen Jean on 08/28/19 5:[address] Patient Name: ELIE MARIA Admission Status: ER Accout number: [id number] Admission Date: 08-27-2019 : 1970 Admission Diagnosis: Attending: ALEENA TORRES Current LOS: 1 Anticipated DC Date: Planned Disposition: Home with Home Health Primary Insurance: MEDICAID [place] Discharge Planning Comments: CM met with patient at bedside after explaining CM role and obtaining verbal consent. Patient lives at home with his significant other Dusty where he is independent with his care and plans to return there upon discharge. Patient feels this would be a safe discharge. CM discussed availability / needs of home health and medical equipment. Patient is under care of [facility] and plans to resume care with them upon discharge. MADHAVI signed Patient denies any discharge needs at this time. Patient states he will have his family drive him home upon discharge. CM will continue to follow and assist as needed with discharge planning / needs. Reimbursement Counselor: Elen Jean DCPIA - Discharge Planning Initial Assessment Updated by [id number]: Elen Jean on 08/28/19 6:05 pm * Is the patient Alert and Oriented? Yes * How many steps to enter\exit or inside your home? * PCP FLIP * [facility] * Preadmission Environment Home with Family * ADLs Partial Dependent * Partial ADLs (Assistance needed) Ambulation Bathing Dressing Eating Medication Management Toileting Transfers * Other Equipment WALKER, W/C * List name and contact numbers for known caregivers / representatives who currently or will assist patient after discharge: DUSTY MARY [facility]- [phone] * Verbal permission to speak to the caregivers and representatives has been obtained from the patient. Yes * Community resources currently utilized Home Health * Please name any agencies selected above. [facility] * Additional services required to return to the preadmission environment? No * Can the patient safely return to the preadmission environment? Yes * Has this patient been hospitalized within the prior 30 days at any hospital? No External Providers External Provider: [employer] Next Contact Date: Service Request Date: Service Type: Resolution: Reviewer: Comments: Coverage Notice Reviewer: [id number] - Elen Jean Notice Issued Date-Time: 08/28/2019 18:07 Notice Type: Patient Choice Letter Notice Delivered To: Patient Relationship to Patient: Staffing Coordinator Name: Delivery Method: HAND - Hand Delivered My Days: Prior Verbal Notification: Recipient Understood Notice: Yes Recipient Signature: Yes Med Rec Note Co-signed by Attending: Coverage Notice Comment: Last DP export: 09/04/19 9:01 a Patient Name: ELIE MARIA Page [phone] at 1332 All edits/amendments must be made on the electronic document DICTATION DATE: 09/04/191331 RESEARCH HYDROLOGIST: SHAUN 09/04/19 133 RPT#: [id number] DC DATE: STATUS: ADM IN [facility] [address] [place] [address] END OF REPORT
--- NOTE | 2019-09-04 13:40 | MORECARE ---
CASE MANAGEMENT DISCHARGE SUMMARY PATIENT: ELIE MARIA UNIT: [id number] ADM DATE: 08/27/19 AGE: 49 : 66 SEX: M ROOM/BED: D.1207 AUTHOR: DHEERAJ ELIZABETH PHYSICIAN: REFERRING PHYSICIAN: ALEENA TORRES DO DATE OF SERVICE: 09/04/19 Discharge Plan Patient Name: ELIE MARIA Facility: [facility]:[place] : 1970 Planned Disposition: Home with Home Health Anticipated Discharge Date: Discharge Date: Expected LOS: Initial Reviewer: [email or web address] Initial Review Date: 08/27/2019 Generated: 09/04/19 2:40 pm Comments DCP- Discharge Planning Updated by [id number]: Ondina Lopez on 09/04/19 12:[address] Patient Name: ELIE MARIA Encounter No: [id number] : 1970 Primary Insurance: MEDICAID [place] Anticipated DC Date: Planned Disposition: Home with Home Health External Planned Provider: : DCP follow-up note: Patient in agreement with discharge plan. [facility] TO [facility] No changes to plan. Case management will follow and assist as needed. Ondina Lopez Appended by Ondina Lopez on 09/04/2019 13:36 CDT: FAXED DC SUMMARY TO [facility] . DCP- Discharge Planning Updated by [email or web address]: Elen Jean on 08/28/19 5:[address] Patient Name: ELIE MARIA Admission Status: ER Accout number: [id number] Admission Date: 08-27-2019 : 1970 Admission Diagnosis: Attending: ALEENA TORRES Current LOS: 1 Anticipated DC Date: Planned Disposition: Home with Home Health Primary Insurance: MEDICAID [place] Discharge Planning Comments: CM met with patient at bedside after explaining CM role and obtaining verbal consent. Patient lives at home with his significant other Dusty where he is independent with his care and plans to return there upon discharge. Patient feels this would be a safe discharge. CM discussed availability / needs of home health and medical equipment. [facility] is [facility] and plans to resume care with them upon discharge. MADHAVI signed Patient denies any discharge needs at this time. Patient states he will have his family drive him home upon discharge. CM will continue to follow and assist as needed with discharge planning / needs. Theatre Instructor: Elen LYNN - Discharge Planning Initial Assessment Updated by [id number]: Elen Jean on 08/28/19 6:05 pm * Is the patient Alert and Oriented? Yes * How many steps to enter\exit or inside your home? * PCP FLIP * [facility] * Preadmission Environment Home with Family * ADLs Partial Dependent * Partial ADLs (Assistance needed) Ambulation Bathing Dressing Eating Medication Management Toileting Transfers * Other Equipment WALKER, W/C * List name and contact numbers for known caregivers / representatives who currently or will assist patient after discharge: DUSTY Mayfield [facility]- [phone] * Verbal permission to speak to the caregivers and representatives has been obtained from the patient. Yes * Community resources currently utilized Home Health * Please name any agencies selected above. [facility] * Additional services required to return to the preadmission environment? No * Can the patient safely return to the preadmission environment? Yes * Has this patient been hospitalized within the prior 30 days at any hospital? No Coverage Notice Reviewer: [id number] - Elen Jean Notice Issued Date-Time: 08/28/2019 18:07 Notice Type: Patient Choice Letter Notice Delivered To: Patient Relationship to Patient: Convolute Tube Winder Name: Delivery Method: HAND - Hand Delivered My Days: Prior Verbal Notification: Recipient Understood Notice: Yes Recipient Signature: Yes Med Rec Note Co-signed by Attending: Coverage Notice Comment: Last DP export: 09/04/19 12:32 p Patient Name: ELIE MARIA Page [phone] at 1340 All edits/amendments must be made on the electronic document DICTATION DATE: 09/04/19 1340 ASBESTOS ABATEMENT WORKER: SHAUN 09/04/19 1340 RPT#: [id number] DC DATE: STATUS: ADM IN [facility] [address] [place] [address] END OF REPORT
--- NOTE | 2019-09-04 16:01 | NUR ---
RECTAL TUBE REMOVED WITH BALLOON DEFLATED. EMMANUEL REMOVED WITH CATHETER TIP INTACT AND BALLOON DEFLATED. 800 MLS DARK, RED URINE NOTED. MEPILEX TO LEFT BUTTOCKS SOILED AND CHANGED. DRESSING TO LEFT HEEL CHANGED. EXPLAINED TO GIRLFRIEND THAT PT HAS BEEN REFUSING TURNING AND MEDICATION AND EDUCATED ON IMPORTANCE OF BLOOD SUGAR CONTROL WITH WOUND HEALING. IV TO LEFT IJ REMOVED WITH CATHETER TIP INTACT. IV TO RIGHT FOREARM REMOVED WITH CATHETER TIP INTACT. EDUCATION ON DRESSING CHANGES WAS ATTEMPTED. GIRLFRIEND STATED SHE ALREADY KNEW HOW TO. BRIEF PLACED ON PT AND ASSISTED TO PERSONAL WHEELCHAIR. D/C PAPERWORK SIGNED AND VERBALIZED UNDERSTANDING. LEFT VIA PERSONAL WHEELCHAIR WITH ALL BELONGINGS.
[2019-09-04 16:09] LABS: HEPARIN INDUCED PLATELET AB 0.162 OD (0.000-0.400)
--- NOTE | 2019-09-04 17:47 | NUR ---
RECIEVED PERSCRIPTION FOR DIFLUCAN AFTER PT WAS D/C. WAS CALLED INTO [facility]. PT WAS MADE AWARE.
--- NOTE | 2019-09-05 09:19 | MORECARE ---
CASE MANAGEMENT DISCHARGE SUMMARY PATIENT: ELIE MARIA UNIT: [id number] ADM DATE: 08/27/19 AGE: 49 : 66 SEX: M ROOM/BED: D.1207 AUTHOR: DHEERAJ ELIZABETH PHYSICIAN: REFERRING PHYSICIAN: ALEENA TORRES DO DATE OF SERVICE: 09/05/19 Discharge Plan Patient Name: ELIE MARIA Facility: [facility]:[place] : 1970 Planned Disposition: Home with Home Health Anticipated Discharge Date: Discharge Date: 09/04/2019 Expected LOS: Initial Reviewer: [email or web address] Initial Review Date: 08/27/2019 Generated: 09/05/19 10:18 am DCP- Discharge Planning Updated by [email or web address]: Ondina Lopez on 09/04/19 12:[address] Patient Name: ELIE MARIA Encounter No: [id number] : 1970 Primary Insurance: MEDICAID [place] Anticipated DC Date: Planned Disposition: Home with Home Health External Planned Provider: : DCP follow-up note: Patient in agreement with discharge plan. DISCHARGE TO [facility] No changes to plan. Case management will follow and assist as needed. Ondina Lopez Appended by Ondina Lopez on 09/04/2019 13:36 CDT: FAXED DC SUMMARY TO [facility] . DCP- Discharge Planning Updated by [email or web address]: Elen Jean on 08/28/19 5:[address] Patient Name: ELIE MARIA Admission Status: ER Accout number: [id number] Admission Date: 08-27-2019 : 1970 Admission Diagnosis: Attending: ALEENA TORRES Current LOS: 1 Anticipated DC Date: Planned Disposition: Home with Home Health Primary Insurance: MEDICAID [place] Discharge Planning Comments: CM met with patient at bedside after explaining CM role and obtaining verbal consent. Patient lives at home with his significant other Dusty where he is independent with his care and plans to return there upon discharge. Patient feels this would be a safe discharge. CM discussed availability / needs of home health and medical equipment. [facility] is [facility] and plans to resume care with them upon discharge. MADHAVI signed Patient denies any discharge needs at this time. Patient states he will have his family drive him home upon discharge. CM will continue to follow and assist as needed with discharge planning / needs. Vocal Music Instructor: Elen LYNN - Discharge Planning Initial Assessment Updated by [id number]: Elen Jean on 08/28/19 6:05 pm * Is the patient Alert and Oriented? Yes * How many steps to enter\exit or inside your home? * PCP FLIP * [facility] * Preadmission Environment Home with Family * ADLs Partial Dependent * Partial ADLs (Assistance needed) Ambulation Bathing Dressing Eating Medication Management Toileting Transfers * Other Equipment WALKER, W/C * List name and contact numbers for known caregivers / representatives who currently or will assist patient after discharge: DUSTY MARY [facility]- [phone] * Verbal permission to speak to the caregivers and representatives has been obtained from the patient. Yes * Community resources currently utilized Home Health * Please name any agencies selected above. [facility] * Additional services required to return to the preadmission environment? No * Can the patient safely return to the preadmission environment? Yes * Has this patient been hospitalized within the prior 30 days at any hospital? No Coverage Notice Reviewer: [id number] - Elen Jean Notice Issued Date-Time: 08/28/2019 18:07 Notice Type: Patient Choice Letter Notice Delivered To: Patient Relationship to Patient: Reading Coach Name: Delivery Method: HAND - Hand Delivered My Days: Prior Verbal Notification: Recipient Understood Notice: Yes Recipient Signature: Yes Med Rec Note Co-signed by Attending: Coverage Notice Comment: Last DP export: 09/04/19 12:40 p Patient Name: ELIE MARIA Page [phone] at 0919 All edits/amendments must be made on the electronic document DICTATION DATE: 09/05/19917 MILITARY EQUIPMENT SPECIALIST: SHAUN 09/05/19917 RPT#: [id number] DC DATE:09/04/19 STATUS: DIS IN [facility] [address] [place] [address] END OF REPORT
--- NOTE | 2019-09-05 13:30 | EC ---
PATIENT:ELIE MARIA DATE OF SERVICE: 08/27/19 SEX: M MEDICAL RECORD: [id number] DATE OF : [birth year] [facility] AGE OF PATIENT: 49 ADMISSION DATE: 08/27/19 REFERRING PHYSICIAN: INTERPRETING PHYSICIAN: PRERNA PABON MD ECHOCARDIOGRAM REPORT ECHO CHARGES 4 ECHO COMPLETE Date: 08/28/19 CLINICAL DIAGNOSIS: DIALATED CARDIOMYOPATHY ECHOCARDIOGRAPHIC MEASUREMENTS (adult normal given) AC root (d.<3.7cm) 3.0 cm LV Septum d (<1.2 cm> 1.0 cm Valve Excursion 1.8 cm LV Septum (systole) 1.3 cm Left Atria (s.<4.0cm> 3.4 cm LVPW d(<1.2cm) 1.0 cm RV (d.<2.3cm) 2.9 cm LVPW (sytole) 1.8 cm LV diastole(<5.6CM) 5.9 cm MV E-F(>70mm/sec) cm LV systole 4.4 cm LVOT Diameter 1.7 cm MV exc.(>10mm) cm Est.ejection fraction (50-75%) % DOPPLER: LVIT cm/sec A 97 cm/sec E cm/sec LA cm/sec RVSP 21.2 mmHg LVOT 95 cm/sec AOP1/2T m/s Asc. Ao 134 cm/sec RVOT 72 cm/sec RA cm/sec PA 73 cm/sec AV Gradient Peak 7.2 mmHg AV Mean 4.4 mmHg AV Area 1.9 cm MV Gradient Peak 5.4 mmHg MV Mean 2.1 mmHg MV Area cm COMMENTS: Stud Sheep Farmer: Karen MUNROE Rug Sizer: 1 Dr. Pabon TAPE# PACS Pericardial Effusion N DATE OF SERVICE: 08/28/2019 PROCEDURES: 1. Left ventricular chamber size is mildly dilated. Left ventricular systolic function is mildly depressed at 40%. This is unchanged from the last echocardiogram he had. 2. Left atrium, right atrium, and right ventricular chamber sizes are within normal limits. 3. Valvular structures have normal structure and motion. 4. Doppler interrogation only reveals trace tricuspid regurgitation. No other ECHOCARDIOGRAM REPORT [id number] ELIE MARIA valvular insufficiency or stenosis. 5. No evidence of pericardial effusion or left ventricular thrombus. TRANSINT:[id number] Voice Confirmation ID: [id number] DOCUMENT ID: [id number] PRERNA PABON MD at 1330 CC: [id number] DICTATION DATE: 08/28/19 1214 AQUATICS MANAGER: 08/28/19 1238 DIS IN 09/04/19 [place] [id number] [place] [id number]
--- NOTE | 2019-09-05 13:30 | CN ---
PATIENT NAME:ELIE SOLER MEDICAL RECORD: [id number] : 66 LOCATION:D. D.1207 ADMIT DATE: 08/27/19 ACCOUNT: [id number] CONSULTING PHYSICIAN: PRERNA MONTESINOS MD REFERRING PHYSICIAN: ALEENA TORRES DO DATE OF CONSULTATION: 08/28/2019 DIAGNOSES: 1. Tachycardia. 2. Hypotension. 3. Cardiomyopathy. 4. Urinary tract infection. 5. Chronic obstructive pulmonary disease. 6. Smoking history. 7. Hyperlipidemia. 8. Insulin-dependent diabetes. HISTORY OF PRESENT ILLNESS: Mr. Soler presents with UTI symptomatology, found to be hypotensive with systolic blood pressures in the 70s. He was tachycardic at baseline at approximately 1:00 a.m. He was started on dopamine for the hypotension. His heart rate is now in the 120-150 range, it is sinus tachycardia, no dysrhythmias. He is not having chest pain, chest discomfort with this. His systolic blood pressures in the 100-110 range with the dopamine and the tachycardia. Tachycardia is not new. He has had a history of tachycardia as well as a history of hypotension, precluding any medical management for the tachycardia. He has a history of a cardiomyopathy previously, his ejection fraction is in the 25% range. Last echocardiogram in May showed ejection fraction in the 40% range. He has no history of ischemic heart disease despite multiple risk factors as above. PHYSICAL EXAMINATION: CONSTITUTIONAL/GENERAL APPEARANCE: Well nourished, well developed, appears stated age. EYES: Lids and conjunctivae noninjected. No discharge. No pallor. ENT: Lips within normal limit. No cyanosis. No pallor. NECK: Carotid arteries, bilateral normal upstroke. No bruits. No thrills. No jugular venous pressure or distention. CERVICAL LYMPH NODES: Nontender. Nonenlarged. THYROID: Not enlarged. No nodules. CARDIOVASCULAR: Precordial exam, nondisplaced. No heaves or pericardial thrills. Rate and rhythm, regular. Heart sounds, normal S1, normal S2. No S3, no gallop, no rub. Systolic murmur, not heard. Diastolic murmur, not heard. RESPIRATORY: Respiratory effort, unlabored. Normal curvature. No thoracic deformity. No chest wall tenderness. Percussion, resonant. Auscultation, clear. No wheezes, no rales, no rhonchi. ABDOMEN: Soft, nondistended, nontender. No abdominal pain, no vomiting and normal appetite. MUSCULOSKELETAL: No joint tenderness, normal gait, normal tone. SKIN: Warm and dry. OVERALL IMPRESSION: Tachycardia in response to the hypotension from the urinary tract infection and in response with the dopamine. At this time, his blood pressure is 110, his heart rates in the 120s. I do not think any other cardiac workup or treatment is necessary other than repeating an echocardiogram for an accurate ejection fraction now. His troponin is normal. He has no ST-T changes CONSULT REPORT [id number] ELIE SOLER on EKG and is having no chest pain or chest discomfort with this. TRANSINT:[id number] Voice Confirmation ID: [id number] DOCUMENT ID: [id number] PRERNA MONTESINOS MD at 1330 CC: [id number] DICTATION DATE: 08/28/19 1106 SECTION CREWS ACTIVITIES CLERK: 08/28/19 1224 DIS IN 09/04/19 [facility] [address] [place] [address]
[2019-09-06 03:07] LABS: ADAMTS13 ACTIVITY 41.8 % (>66.8)
== END 2019-09-04 16:20 | disposition home health service (06) | DRG 871 ==
LOC: D.ER 12:46 → D.M2 18:53 → D.ICU 18:53 → D.M2 08-29 18:35 → D.ICU 08-31 16:24 → D.M3 09-03 14:33
PROVIDERS: Family Medicine; Internal Medicine Hematology & Oncology; Internal Medicine Nephrology; ADMIT Family Medicine; ATTEND Family Medicine
DX: A41.9 Sepsis, unspecified organism (principal); N17.0 Acute kidney failure with tubular necrosis; E43 Unspecified severe protein-calorie malnutrition; S72.001A Fracture of unspecified part of neck of right femur, initial encounter for closed fracture; N39.0 Urinary tract infection, site not specified; F17.213 Nicotine dependence, cigarettes, with withdrawal; I50.32 Chronic diastolic (congestive) heart failure; E87.1 Hypo-osmolality and hyponatremia; N17.9 Acute kidney failure, unspecified; E11.65 Type 2 diabetes mellitus with hyperglycemia; D64.9 Anemia, unspecified

== ENCOUNTER 2019-09-06 11:02 | Inpatient (IN) | payer MEDICAID ==
[2019-09-06] VITALS (16 sets, daily range): BP systolic 67–130; BP diastolic 34–63; BMI 17.6
[~2019-09-06] VITALS: Ht 175.3 cm; Wt 58.3 kg
[~2019-09-06 11:02] MED LIST changes: +DIFLUCAN100 MG PO; +NYSTATIN OINTME15 GM TOPICAL
[2019-09-06 11:41] LABS: APPEARANCE CLOUDY (CLEAR); COLOR YELLOW (YELLOW); GLUCOSE 100 mg/dL (NEGATIVE); NITRITE NEGATIVE (NEGATIVE); PROTEIN 2+ mg/dL (NEGATIVE); SPECIFIC GRAVITY 1.015 (1.005-1.020)
[2019-09-06 11:42] LABS: BILIRUBIN NEGATIVE (NEGATIVE); KETONE SMALL mg/dL (NEGATIVE); UROBILINOGEN NORMAL (NORMAL); WHITE CELLS - URINE >50 /hpf (NEGATIVE)
[2019-09-06 11:43] LABS: BACTERIA MANY /hpf (NEGATIVE); EPITHELIAL CELLS NSEEN /hpf (0-5); YEAST >1+ /hpf (NONE SEEN)
[2019-09-06 11:44] LABS: APTT 46.7 SECONDS (22.8-39.4); INR 2.13 (0.85-1.17); PROTIME 23.1 SECONDS (11.6-15.0)
[2019-09-06 11:53] LABS: BASOPHILS 0.2 % (0-2); EOSINOPHILS 0 % (0-7); IMMATURE GRANULOCYTES 0.2 % (0-5); LYMPHOCYTES 16.5 % (15-50); MCH 29.9 pg (26.0-34.0); MCHC 32.7 g/dL (31.0-37.0); MCV 91.3 fL (80.0-100.0); MEAN PLATELET VOLUME 10.1 fL (7.4-10.4); MONOCYTES 2.8 % (2-11); NEUTROPHILS 80.3 % (40-80); RBC 2.41 10x6/uL (4.20-6.10); RDW 14.9 % (11.5-14.5); WBC 5.7 10x3/uL (4.8-10.8)
[2019-09-06 12:01] LABS: ALBUMIN 1.2 g/dL (3.4-5.0); ALKALINE PHOSPHATASE 536 U/L (46-116); ALT (SGPT) 31 U/L (10-68); CARBON DIOXIDE 13.7 mmol/L (21.0-32.0); CHLORIDE - SERUM 109 mmol/L (98-107); CKMB 0.3 U/L (0.0-3.6); CREATINE KINASE 180 UL (21-232); CREATININE - SERUM 3.2 mg/dL (0.6-1.3); POTASSIUM - SERUM 3.9 mmol/L (3.5-5.1); PROTEIN - SERUM 4.8 g/dL (6.4-8.2); SODIUM 140 mmol/L (136-145); TROPONIN-I < 0.017 ng/mL (0.000-0.060); UREA NITROGEN 57 mg/dL (7-18); eGFR NON AFRICAN AMERICAN 22 mL/min (90-120)
[2019-09-06 12:02] LABS: CALC OSMOLALITY 309 mosm/kg (275-300); GLUCOSE 368 mg/dL (74-106)
[2019-09-06 12:03] LABS: CALCIUM 6.9 mg/dL (8.5-10.1); HEMOGLOBIN 7.2 g/dL (13.5-17.5); PLATELET COUNT 219 10x3/uL (130-400)
--- NOTE | 2019-09-06 15:47 | MORECARE ---
CASE MANAGEMENT DISCHARGE SUMMARY PATIENT: ELIE MARIA UNIT: [id number] ADM DATE: 09/06/19 AGE: 49 : 66 SEX: M ROOM/BED: D.2306 AUTHOR: DHEERAJ ELIZABETH PHYSICIAN: REFERRING PHYSICIAN: SAMANTHA BONILLA MD DATE OF SERVICE: 09/06/19 Discharge Plan Patient Name: ELIE MARIA [facility] [facility] 1970 Planned Disposition: Home Anticipated Discharge Date: 09/09/19 Discharge Date: Expected LOS: 3 Initial Reviewer: [email or web address] Initial Review Date: 09/06/2019 Generated: 09/06/19 4:47 pm Coverage Notice Reviewer: [id number] - Milly Soni Notice Issued Date-Time: 09/06/2019 14:58 Notice Type: Patient Choice Letter Notice Delivered To: Other Relationship to Patient: Other Relationship Trolley Car Mechanic Name: Kayleen carbajal Delivery Method: HAND - Hand Delivered My Days: Prior Verbal Notification: Recipient Understood Notice: Recipient Signature: Med Rec Note Co-signed by Attending: Coverage Notice Comment: MADHAVI form presented, explained and signed by the patient;s girlfriend, Kayleen Shashank for resumption of [facility]. Signed form placed on patient's chart and a signed copy left with the Kayleen for her records. Patient Name: ELIE MARIA Page [id number] at 1547 All edits/amendments must be made on the electronic document DICTATION DATE: 09/06/191546 SPACE STUDIES FACULTY MEMBER: SHAUN 09/06/191546 RPT#: [id number] DC DATE: STATUS: ADM IN [facility] [address] [place] [address] END OF REPORT
--- NOTE | 2019-09-06 15:56 | MORECARE ---
CASE MANAGEMENT DISCHARGE SUMMARY PATIENT: ELIE MARIA UNIT: [id number] ADM DATE: 09/06/19 AGE: 49 : 66 SEX: M ROOM/BED: D.2306 AUTHOR: GLENN,DOC PHYSICIAN: REFERRING PHYSICIAN: SAMANTHA BONILLA MD DATE OF SERVICE: 09/06/19 Discharge Plan Patient Name: ELIE MARIA Facility: [facility]:[place] : 1970 Planned Disposition: Home Health Service Anticipated Discharge Date: 09/09/19 Discharge Date: Expected LOS: 3 Initial Reviewer: [email or web address] Initial Review Date: 09/06/2019 Generated: 09/06/19 4:56 pm DCP- Discharge Planning Updated by [id number]: Milly Soni on 09/06/19 2:[address] DC PLAN: Return home with girlfriend (primary cg) and resumption of [facility] ANTICIPATED DC NEEDS: Resumption of Home Health. CM met with patient and his girlfriend, Kayleen to complete initial dc planning assessment. CM educated patient on the CM role and verbal consent given by Kayleen to complete assessment. CM verified patient's address, phone number, and emergency contact phone numbers. Patient lives at home with Kayleen who reports she is his primary cg at home. He has required total assistance since dc from hospital. Patient currently has [facility] and wishes to resume at discharge. MADHAVI form signed by Kayleen for resumption of [facility]. Signed form placed in chart and signed form given to Kayleen. At discharge patient plans to return home and feels this is a safe discharge. Kayleen denied further known discharge needs at this time. Kayleen reports she will transport him home at time of discharge. Patient appears to be sleeping during assessment and never acknowledged cm in room. Patient will need Physical Therapy once MD feels patient is medically stable to participate. CM will continue to follow and will assist as needed with dc plans/needs. Milly Soni RN, CCM Coverage Notice Reviewer: [id number] - Milly Soni Notice Issued Date-Time: 09/06/2019 14:58 Notice Type: Patient Choice Letter Notice Delivered To: Other Relationship to Patient: Other Relationship Horse Trainer Name: Kayleen Shashank carbajal Delivery Method: HAND - Hand Delivered My Days: Prior Verbal Notification: Recipient Understood Notice: Recipient Signature: Med Rec Note Co-signed by Attending: Coverage Notice Comment: MADHAVI form presented, explained and signed by the patient;s girlfriend, Kayleen Encarnacion for resumption of [facility]. Signed form placed on patient's chart and a signed copy left with the Kayleen for her records. Last DP export: 09/06/19 2:47 Patient Name: ELIE MARIA Page [phone] at 1556 All edits/amendments must be made on the electronic document DICTATION DATE: 09/06/19 155 CROSS TIE TRAM LOADER: SHAUN 09/06/191555 RPT#: [id number] DC DATE: STATUS: ADM IN [facility] [address] [place] [address] END OF REPORT
[2019-09-06 17:45] LABS: ANION GAP 20.5 mmol/L (8-16); CARBON DIOXIDE 13.8 mmol/L (21.0-32.0); CREATININE - SERUM 3.4 mg/dL (0.6-1.3); MAGNESIUM - SERUM 1.5 mg/dL (1.8-2.4); POTASSIUM - SERUM 4.3 mmol/L (3.5-5.1)
[2019-09-06 17:51] LABS: CALCIUM 6.6 mg/dL (8.5-10.1)
[2019-09-06 20:27] LABS: ANION GAP 19.3 mmol/L (8-16); CARBON DIOXIDE 13.8 mmol/L (21.0-32.0); CREATININE - SERUM 3.3 mg/dL (0.6-1.3); MAGNESIUM - SERUM 1.5 mg/dL (1.8-2.4); POTASSIUM - SERUM 4.1 mmol/L (3.5-5.1)
[2019-09-06 20:31] LABS: CALCIUM 6.7 mg/dL (8.5-10.1)
[2019-09-07] VITALS (62 sets, daily range): BP systolic 77–155; BP diastolic 45–94; BMI 17.5
[2019-09-07 04:24] LABS: BASOPHILS 0.2 % (0-2); EOSINOPHILS 0.1 % (0-7); HEMATOCRIT 25.2 % (42.0-54.0); HEMOGLOBIN 8.5 g/dL (13.5-17.5); IMMATURE GRANULOCYTES 2.1 % (0-5); LYMPHOCYTES 12.2 % (15-50); MCH 29.8 pg (26.0-34.0); MCHC 33.7 g/dL (31.0-37.0); MCV 88.4 fL (80.0-100.0); MEAN PLATELET VOLUME 9.9 fL (7.4-10.4); NEUTROPHILS 79.4 % (40-80); PLATELET COUNT 209 10x3/uL (130-400); RBC 2.85 10x6/uL (4.20-6.10); RDW 14.7 % (11.5-14.5); WBC 10.7 10x3/uL (4.8-10.8)
[2019-09-07 04:42] LABS: ALBUMIN 1.2 g/dL (3.4-5.0); ANION GAP 19.9 mmol/L (8-16); CREATININE - SERUM 3.5 mg/dL (0.6-1.3); MAGNESIUM - SERUM 1.4 mg/dL (1.8-2.4); PHOSPHOROUS 3.4 mg/dL (2.5-4.9); POTASSIUM - SERUM 3.9 mmol/L (3.5-5.1); VANCOMYCIN - RANDOM 15.7 ug/mL (10.0-20.0)
[2019-09-07 04:43] LABS: CALCIUM 6.6 mg/dL (8.5-10.1)
[2019-09-07 08:41] LABS: ANION GAP 16.7 mmol/L (8-16); CREATININE - SERUM 3.5 mg/dL (0.6-1.3); MAGNESIUM - SERUM 1.4 mg/dL (1.8-2.4); POTASSIUM - SERUM 3.7 mmol/L (3.5-5.1)
[2019-09-07 08:53] LABS: CALCIUM 6.6 mg/dL (8.5-10.1)
[2019-09-08] VITALS (81 sets, daily range): BP systolic 76–128; BP diastolic 19–86
[2019-09-08 06:16] LABS: ANION GAP 20.3 mmol/L (8-16); CREATININE - SERUM 3.8 mg/dL (0.6-1.3); POTASSIUM - SERUM 3.3 mmol/L (3.5-5.1)
[2019-09-08 06:18] LABS: CALCIUM 6.9 mg/dL (8.5-10.1)
[2019-09-09] VITALS (79 sets, daily range): BP systolic 78–114; BP diastolic 48–86
[2019-09-09 04:29] LABS: BASOPHILS 0.3 % (0-2); EOSINOPHILS 1.4 % (0-7); HEMATOCRIT 24.6 % (42.0-54.0); HEMOGLOBIN 8.2 g/dL (13.5-17.5); IMMATURE GRANULOCYTES 0.4 % (0-5); LYMPHOCYTES 21.6 % (15-50); MCH 29.5 pg (26.0-34.0); MCHC 33.3 g/dL (31.0-37.0); MCV 88.5 fL (80.0-100.0); MEAN PLATELET VOLUME 10.9 fL (7.4-10.4); MONOCYTES 6.1 % (2-11); NEUTROPHILS 70.2 % (40-80); RBC 2.78 10x6/uL (4.20-6.10); RDW 15.4 % (11.5-14.5)
[2019-09-09 04:57] LABS: ANION GAP 17.5 mmol/L (8-16); CARBON DIOXIDE 13.2 mmol/L (21.0-32.0); CREATININE - SERUM 3.7 mg/dL (0.6-1.3); POTASSIUM - SERUM 3.7 mmol/L (3.5-5.1); VANCOMYCIN - RANDOM 19.9 ug/mL (10.0-20.0)
[2019-09-09 05:18] LABS: PLATELET COUNT 84 10x3/uL (130-400); WBC 7.1 10x3/uL (4.8-10.8)
[2019-09-09 05:19] LABS: CALCIUM 6.5 mg/dL (8.5-10.1)
[2019-09-09 05:45] LABS: PLATELET ESTIMATE DECREASED
[2019-09-09 11:35] LABS: ALBUMIN 1.1 g/dL (3.4-5.0); BILIRUBIN - TOTAL 1.6 mg/dL (0.2-1.3); PROTEIN - SERUM 4.5 g/dL (6.4-8.2)
[2019-09-09 13:14] LABS: KETONE - SERUM NEGATIVE (NEGATIVE)
[2019-09-09 13:25] LABS: ALBUMIN 1.1 g/dL (3.4-5.0); ALKALINE PHOSPHATASE 385 U/L (46-116); ALT (SGPT) 34 U/L (10-68); BILIRUBIN - TOTAL 1.96 mg/dL (0.2-1.3); CALC OSMOLALITY 296 mosm/kg (275-300); CARBON DIOXIDE 12.9 mmol/L (21.0-32.0); CHLORIDE - SERUM 113 mmol/L (98-107); CREATININE - SERUM 3.8 mg/dL (0.6-1.3); GLUCOSE 121 mg/dL (74-106); POTASSIUM - SERUM 3.8 mmol/L (3.5-5.1); PROTEIN - SERUM 4.6 g/dL (6.4-8.2); SODIUM 140 mmol/L (136-145); UREA NITROGEN 60 mg/dL (7-18); eGFR NON AFRICAN AMERICAN 18 mL/min (90-120)
[2019-09-09 13:26] LABS: CALCIUM 6.7 mg/dL (8.5-10.1)
[2019-09-09 19:55] LABS: ANION GAP 17.7 mmol/L (8-16); BILIRUBIN - TOTAL 1.76 mg/dL (0.2-1.3); CREATININE - SERUM 3.6 mg/dL (0.6-1.3); POTASSIUM - SERUM 3.7 mmol/L (3.5-5.1); PROTEIN - SERUM 4.4 g/dL (6.4-8.2)
[2019-09-09 19:59] LABS: CALCIUM 6.5 mg/dL (8.5-10.1)
[2019-09-10] VITALS (24 sets, daily range): BP systolic 65–116; BP diastolic 45–93
[2019-09-10 00:45] LABS: ANION GAP 18.4 mmol/L (8-16); CARBON DIOXIDE 12.2 mmol/L (21.0-32.0); CREATININE - SERUM 3.9 mg/dL (0.6-1.3); POTASSIUM - SERUM 3.6 mmol/L (3.5-5.1)
[2019-09-10 01:06] LABS: CALCIUM 6.5 mg/dL (8.5-10.1)
[2019-09-10 05:41] LABS: BASOPHILS 0.2 % (0-2); EOSINOPHILS 1.4 % (0-7); HEMATOCRIT 22.9 % (42.0-54.0); HEMOGLOBIN 7.8 g/dL (13.5-17.5); IMMATURE GRANULOCYTES 0.2 % (0-5); KETONE - SERUM NEGATIVE (NEGATIVE); LYMPHOCYTES 26.5 % (15-50); MCH 29.9 pg (26.0-34.0); MCHC 34.1 g/dL (31.0-37.0); MCV 87.7 fL (80.0-100.0); MEAN PLATELET VOLUME 11.1 fL (7.4-10.4); MONOCYTES 7.5 % (2-11); NEUTROPHILS 64.2 % (40-80); RBC 2.61 10x6/uL (4.20-6.10); RDW 15.6 % (11.5-14.5)
[2019-09-10 05:43] LABS: ALKALINE PHOSPHATASE 435 U/L (46-116); ALT (SGPT) 26 U/L (10-68); BILIRUBIN - TOTAL 1.86 mg/dL (0.2-1.3); CALC OSMOLALITY 292 mosm/kg (275-300); CARBON DIOXIDE 12.4 mmol/L (21.0-32.0); CHLORIDE - SERUM 112 mmol/L (98-107); CREATININE - SERUM 3.8 mg/dL (0.6-1.3); GLUCOSE 86 mg/dL (74-106); MAGNESIUM - SERUM 1.7 mg/dL (1.8-2.4); PHOSPHOROUS 3.4 mg/dL (2.5-4.9); POTASSIUM - SERUM 3.6 mmol/L (3.5-5.1); PROTEIN - SERUM 4.6 g/dL (6.4-8.2); SODIUM 139 mmol/L (136-145); UREA NITROGEN 58 mg/dL (7-18); eGFR NON AFRICAN AMERICAN 18 mL/min (90-120)
[2019-09-10 05:46] LABS: CALCIUM 6.7 mg/dL (8.5-10.1)
[2019-09-10 05:47] LABS: PLATELET COUNT 61 10x3/uL (130-400); WBC 4.4 10x3/uL (4.8-10.8)
[2019-09-11] VITALS (12 sets, daily range): BP systolic 91–114; BP diastolic 46–78
[2019-09-11 04:47] LABS: BASOPHILS 0.4 % (0-2); EOSINOPHILS 0.4 % (0-7); HEMATOCRIT 26.1 % (42.0-54.0); HEMOGLOBIN 8.9 g/dL (13.5-17.5); IMMATURE GRANULOCYTES 1.2 % (0-5); LYMPHOCYTES 15.2 % (15-50); MCH 30.2 pg (26.0-34.0); MCHC 34.1 g/dL (31.0-37.0); MCV 88.5 fL (80.0-100.0); MEAN PLATELET VOLUME 10.7 fL (7.4-10.4); MONOCYTES 7.9 % (2-11); NEUTROPHILS 74.9 % (40-80); PLATELET COUNT 52 10x3/uL (130-400); RBC 2.95 10x6/uL (4.20-6.10); RDW 15.5 % (11.5-14.5); WBC 5.2 10x3/uL (4.8-10.8)
[2019-09-11 05:00] LABS: ANION GAP 20.3 mmol/L (8-16); CALCIUM 7.1 mg/dL (8.5-10.1); CARBON DIOXIDE 10.7 mmol/L (21.0-32.0); CREATININE - SERUM 3.8 mg/dL (0.6-1.3); MAGNESIUM - SERUM 1.8 mg/dL (1.8-2.4); VANCOMYCIN - RANDOM 24.4 ug/mL (10.0-20.0)
[2019-09-11 05:34] LABS: PLATELET ESTIMATE DECREASED
--- NOTE | 2019-09-11 15:08 | OP ---
PATIENT NAME: ELIE MARIA MEDICAL RECORD: [id number] :66 LOCATION:D.MS [place]2239 ADMISSION DATE:09/06/19 SURGEON: KELSEY IBARRA MD DATE OF OPERATION: 09/10/2019 PROCEDURE: Transesophageal Note DESCRIPTION OF THE PROCEDURE: After general sedation via TIVA, a transesophageal Omniplane probe was placed in the distal esophagus and proximal stomach without difficulty. No LVH. LV internal dimensions are normal. LV is globally hypokinetic with reduced EF, estimated EF 30% to 35%. Aortic valve is tricuspid. There is a small 2 mm of vegetation, freely mobile noted on the left coronary cusp. There is a good valve excursion and no other valve pathology involving the aortic valve itself. Left atrium appears normal dimension. Left atrial appendage is well visualized with good contractility and no evidence of thrombus. Mitral valve appears normal with trivial MR. Right-sided chamber is grossly normal. Trivial TR. At the end of procedure, transesophageal Omniplane probe was turned posteriorly and posteriorly shows minimal atherosclerotic debris in the descending aorta. TRANSINT:[id number] Voice Confirmation ID: [id number] DOCUMENT ID: [id number] KELSEY IBARRA MD at 1508 CC: [id number] DICTATION DATE: 09/10/19 154 DYE HOUSE HAND: 09/10/19 2250 ADM IN [place] [id number] [place] [address]
[2019-09-12] VITALS (16 sets, daily range): BP systolic 76–139; BP diastolic 45–84
[2019-09-12 07:01] LABS: ANION GAP 23.8 mmol/L (8-16); CALCIUM 7.3 mg/dL (8.5-10.1); CREATININE - SERUM 3.8 mg/dL (0.6-1.3); MAGNESIUM - SERUM 1.9 mg/dL (1.8-2.4); POTASSIUM - SERUM 3.8 mmol/L (3.5-5.1); VANCOMYCIN - RANDOM 19.9 ug/mL (10.0-20.0)
[2019-09-12 07:20] LABS: BASOPHILS 0.2 % (0-2); EOSINOPHILS 0.4 % (0-7); HEMOGLOBIN 8.9 g/dL (13.5-17.5); IMMATURE GRANULOCYTES 0.4 % (0-5); LYMPHOCYTES 23.7 % (15-50); MCH 29.5 pg (26.0-34.0); MCV 89.4 fL (80.0-100.0); NEUTROPHILS 71.3 % (40-80); RBC 3.02 10x6/uL (4.20-6.10); RDW 15.9 % (11.5-14.5); WBC 4.7 10x3/uL (4.8-10.8)
[2019-09-12 07:22] LABS: PHOSPHOROUS 5.3 mg/dL (2.5-4.9)
[2019-09-12 07:29] LABS: PLATELET COUNT 33 10x3/uL (130-400)
--- NOTE | 2019-09-12 15:10 | MORECARE ---
CASE MANAGEMENT DISCHARGE SUMMARY PATIENT: ELIE MARIA UNIT: [id number] ADM DATE: 09/06/19 AGE: 49 : 66 SEX: M ROOM/BED: D.2239 AUTHOR: DHEERAJ ELIZABETH PHYSICIAN: REFERRING PHYSICIAN: SAMANTHA BONILLA MD DATE OF SERVICE: 09/12/19 Discharge Plan Patient Name: ELIE MARIA Facility: [facility]:[place] : 1970 Planned Disposition: Home Health Service Anticipated Discharge Date: 09/09/19 Discharge Date: Expected LOS: 3 Initial Reviewer: [id number] Initial Review Date: 09/06/2019 Generated: 09/12/19 4:09 pm DCP- Discharge Planning Updated by [id number]: Milly Soni on 09/06/19 2:[address] DC PLAN: Return home with girlfriend (primary cg) and resumption of [facility] ANTICIPATED DC NEEDS: Resumption of Home Health. CM met with patient and his girlfriend, Kayleen to complete initial dc planning assessment. CM educated patient on the CM role and verbal consent given by Kayleen to complete assessment. CM verified patient's address, phone number, and emergency contact phone numbers. Patient lives at home with Kayleen who reports she is his primary cg at home. He has required total assistance since dc from hospital. Patient currently has [facility] and wishes to resume at discharge. MADHAVI form signed by Kayleen for resumption of [facility]. Signed form placed in chart and signed form given to Kayleen. At discharge patient plans to return home and feels this is a safe discharge. Kayleen denied further known discharge needs at this time. Kayleen reports she will transport him home at time of discharge. Patient appears to be sleeping during assessment and never acknowledged cm in room. Patient will need Physical Therapy once MD feels patient is medically stable to participate. CM will continue to follow and will assist as needed with dc plans/needs. Milly Soni RN, [facility] External Providers External Provider: [facility] Next Contact Date: Service Request Date: Service Type: Resolution: Reviewer: Comments: Coverage Notice Reviewer: [id number] - Milly Soni Notice Issued Date-Time: 09/06/2019 14:58 Notice Type: Patient Choice Letter Notice Delivered To: Other Relationship to Patient: Other Relationship University Professor Name: Kayleen Encarnacion -gf Delivery Method: HAND - Hand Delivered My Days: Prior Verbal Notification: Recipient Understood Notice: Recipient Signature: Med Rec Note Co-signed by Attending: Coverage Notice Comment: MADHAVI form presented, explained and signed by the patient;s girlfriend, Kayleen Encarnacion for resumption of [facility]. Signed form placed on patient's chart and a signed copy left with the Kayleen for her records. Last DP export: 09/06/19 2:56 Patient Name: ELIE MARIA Page [phone] at 1510 All edits/amendments must be made on the electronic document DICTATION DATE: 09/12/191508 SUPERVISOR EVAPORATOR: SHAUN 09/12/191508 RPT#: [id number] DC DATE: STATUS: ADM IN [facility] [address] [place] [address] END OF REPORT
--- NOTE | 2019-09-12 15:28 | MORECARE ---
CASE MANAGEMENT DISCHARGE SUMMARY PATIENT: ELIE MARIA UNIT: [id number] ADM DATE: 09/06/19 AGE: 49 : 66 SEX: M ROOM/BED: D.2239 AUTHOR: GLENN,DOC PHYSICIAN: REFERRING PHYSICIAN: SAMANTHA BONILLA MD DATE OF SERVICE: 09/12/19 Discharge Plan Patient Name: ELIE MARIA [facility] : 1970 Planned Disposition: Home Health Service Anticipated Discharge Date: 09/09/19 Discharge Date: Expected LOS: 3 Initial Reviewer: [email or web address] Initial Review Date: 09/06/2019 Generated: 09/12/19 4:28 pm Comments DCP- Discharge Planning Updated by [email or web address]: Amy Scherer on 09/12/19 2:[address] Stacey called and states that Dr. Alcaraz would like patient transferred to [facility] for infectious disease consultation. I called the transfer team and spoke with Mar and face luis fernando, requested clinical faxed. CM will continue to follow and assist with discharge planning/needs. DCP- Discharge Planning Updated by [id number]: Milly Soni on 09/06/19 2:[address] DC PLAN: Return home with girlfriend (primary cg) and resumption of [facility] ANTICIPATED DC NEEDS: Resumption of Home Health. CM met with patient and his girlfriend, Kayleen to complete initial dc planning assessment. CM educated patient on the CM role and verbal consent given by Kayleen to complete assessment. CM verified patient's address, phone number, and emergency contact phone numbers. Patient lives at home with Kayleen who reports she is his primary cg at home. He has required total assistance since dc from hospital. Patient currently has [facility] and wishes to resume at discharge. MADHAVI form signed by Kayleen for resumption of [facility]. Signed form placed in chart and signed form given to Kayleen. At discharge patient plans to return home and feels this is a safe discharge. Kayleen denied further known discharge needs at this time. Kayleen reports she will transport him home at time of discharge. Patient appears to be sleeping during assessment and never acknowledged cm in room. Patient will need Physical Therapy once MD feels patient is medically stable to participate. CM will continue to follow and will assist as needed with dc plans/needs. Milly Soni RN, [facility] Coverage Notice Reviewer: [id number] - Milly Soni Notice Issued Date-Time: 09/06/2019 14:58 Notice Type: Patient Choice Letter Notice Delivered To: Other Relationship to Patient: Other Relationship Concrete Foreman Name: Kayleen Encarnacion -gf Delivery Method: HAND - Hand Delivered My Days: Prior Verbal Notification: Recipient Understood Notice: Recipient Signature: Med Rec Note Co-signed by Attending: Coverage Notice Comment: MADHAVI form presented, explained and signed by the patient;s girlfriend, Kayleen Encarnacion for resumption of [facility]. Signed form placed on patient's chart and a signed copy left with the Kayleen for her records. Last DP export: 09/12/19 2:10 Patient Name: ELIE MARIA Page [phone] at 1528 All edits/amendments must be made on the electronic document DICTATION DATE: 09/12/191527 BUDGET AND POLICY ANALYST: SHAUN 09/12/191527 RPT#: [id number] DC DATE: STATUS: ADM IN [facility] [address] [place] [address] END OF REPORT
--- NOTE | 2019-09-12 16:18 | MORECARE ---
CASE MANAGEMENT DISCHARGE SUMMARY PATIENT: ELIE MARIA UNIT: [id number] ADM DATE: 09/06/19 AGE: 49 : 66 SEX: M ROOM/BED: D.2310 AUTHOR: GLENN,DOC PHYSICIAN: REFERRING PHYSICIAN: SAMANTHA BONILLA MD DATE OF SERVICE: 09/12/19 Discharge Plan Patient Name: ELIE MARIA Facility: [facility]:[place] : 1970 Planned Disposition: Home Health Service Anticipated Discharge Date: 09/09/19 Discharge Date: Expected LOS: 3 Initial Reviewer: [email or web address] Initial Review Date: 09/06/2019 Generated: 09/12/19 5:17 pm Comments DCP- Discharge Planning Updated by [id number]: Amy Scherer on 09/12/19 3:[address] Alcaraz here and patient is being transferred to ICU. Dr. Alcaraz states to cancel transfer to [facility] and they would reorder it when ready, possibly to [facility]. I called and spoke to transfer team and informed to cancel transfer to [facility]. DCP- Discharge Planning Updated by [id number]: Amy Scherer on 09/12/19 2:[address] Stacey called and states that Dr. Alcaraz would like patient transferred to [facility] in [place] for infectious disease consultation. I called the transfer team and spoke with Mar and face sheet, requested clinical faxed. CM will continue to follow and assist with discharge planning/needs. DCP- Discharge Planning Updated by [id number]: Milly Soni on 09/06/19 2:[address] DC PLAN: Return home with girlfriend (primary cg) and resumption of [facility] ANTICIPATED DC NEEDS: Resumption of Home Health. CM met with patient and his girlfriend, Kayleen to complete initial dc planning assessment. CM educated patient on the CM role and verbal consent given by Kayleen to complete assessment. CM verified patient's address, phone number, and emergency contact phone numbers. Patient lives at home with Kayleen who reports she is his primary cg at home. He has required total assistance since dc from hospital. Patient currently has [facility] and wishes to resume at discharge. MADHAVI form signed by Kayleen for resumption of [facility]. Signed form placed in chart and signed form given to Kayleen. At discharge patient plans to return home and feels this is a safe discharge. Kayleen denied further known discharge needs at this time. Kayleen reports she will transport him home at time of discharge. Patient appears to be sleeping during assessment and never acknowledged cm in room. Patient will need Physical Therapy once MD feels patient is medically stable to participate. CM will continue to follow and will assist as needed with dc plans/needs. Milly Soni RN, [facility] Coverage Notice Reviewer: [id number] - Milly Soni Notice Issued Date-Time: 09/06/2019 14:58 Notice Type: Patient Choice Letter Notice Delivered To: Other Relationship to Patient: Other Relationship Sales Associate Key Holder Name: Kayleen Encarnacion Chaparrogf Delivery Method: HAND - Hand Delivered My Days: Prior Verbal Notification: Recipient Understood Notice: Recipient Signature: Med Rec Note Co-signed by Attending: Coverage Notice Comment: MADHAVI form presented, explained and signed by the patient;s girlfriend, Kayleen Encarnacion for resumption of [facility]. Signed form placed on patient's chart and a signed copy left with the Kayleen for her records. Last DP export: 09/12/19 2:28 Patient Name: ELIE MARIA Page [phone] at 1618 All edits/amendments must be made on the electronic document DICTATION DATE: 09/12/191616 SHIPPING & RECEIVING LEAD: SHAUN 09/12/191616 RPT#: [id number] DC DATE: STATUS: ADM IN [facility] [address] [place] [address] END OF REPORT
[2019-09-12 16:46] LABS: BASOPHILS 0.2 % (0-2); EOSINOPHILS 0.9 % (0-7); HEMATOCRIT 26.4 % (42.0-54.0); HEMOGLOBIN 8.8 g/dL (13.5-17.5); IMMATURE GRANULOCYTES 0.7 % (0-5); LYMPHOCYTES 20.4 % (15-50); MCH 29.5 pg (26.0-34.0); MCHC 33.3 g/dL (31.0-37.0); MCV 88.6 fL (80.0-100.0); MEAN PLATELET VOLUME 10.7 fL (7.4-10.4); NEUTROPHILS 73.8 % (40-80); RBC 2.98 10x6/uL (4.20-6.10); RDW 15.7 % (11.5-14.5); WBC 4.5 10x3/uL (4.8-10.8)
[2019-09-12 16:48] LABS: PLATELET COUNT 28 10x3/uL (130-400)
[2019-09-12 16:53] LABS: ANION GAP 21.3 mmol/L (8-16); BILIRUBIN - TOTAL 3.25 mg/dL (0.2-1.3); CALCIUM 7.2 mg/dL (8.5-10.1); CARBON DIOXIDE 10.6 mmol/L (21.0-32.0); CREATININE - SERUM 3.7 mg/dL (0.6-1.3); POTASSIUM - SERUM 3.9 mmol/L (3.5-5.1); PROTEIN - SERUM 4.6 g/dL (6.4-8.2)
[2019-09-12 17:10] LABS: PLATELET ESTIMATE DECREASED
[2019-09-12 18:18] LABS: APTT 65.2 SECONDS (22.8-39.4); INR 4.01 (0.85-1.17); PROTIME 38.2 SECONDS (11.6-15.0)
[2019-09-12 18:32] LABS: APPEARANCE TURBID (CLEAR); COLOR BROWN (YELLOW)
[2019-09-12 18:33] LABS: BILIRUBIN NEGATIVE (NEGATIVE); GLUCOSE 50 mg/dL (NEGATIVE); KETONE MODERATE mg/dL (NEGATIVE); NITRITE NEGATIVE (NEGATIVE); PROTEIN 2+ mg/dL (NEGATIVE); UROBILINOGEN NORMAL (NORMAL)
[2019-09-12 18:34] LABS: BACTERIA MODERATE /hpf (NEGATIVE); RED CELLS - URINE 0-5 /hpf (0-5); WHITE CELLS - URINE >50 /hpf (NEGATIVE)
[2019-09-13] VITALS (25 sets, daily range): BP systolic 86–152; BP diastolic 45–91; Ht 175.3 cm; Wt 58.3 kg
[2019-09-13 04:17] LABS: BASOPHILS 0 % (0-2); EOSINOPHILS 0.4 % (0-7); HEMATOCRIT 24.4 % (42.0-54.0); HEMOGLOBIN 8.2 g/dL (13.5-17.5); IMMATURE GRANULOCYTES 0.8 % (0-5); LYMPHOCYTES 15.1 % (15-50); MCH 29.5 pg (26.0-34.0); MCHC 33.6 g/dL (31.0-37.0); MCV 87.8 fL (80.0-100.0); MEAN PLATELET VOLUME 11.1 fL (7.4-10.4); MONOCYTES 2.9 % (2-11); NEUTROPHILS 80.8 % (40-80); PLATELET COUNT 52 10x3/uL (130-400); RBC 2.78 10x6/uL (4.20-6.10); RDW 15.6 % (11.5-14.5); WBC 5.1 10x3/uL (4.8-10.8)
[2019-09-13 04:27] LABS: ANION GAP 21.2 mmol/L (8-16); CALCIUM 7.1 mg/dL (8.5-10.1); CARBON DIOXIDE 12.3 mmol/L (21.0-32.0); CREATININE - SERUM 3.2 mg/dL (0.6-1.3); MAGNESIUM - SERUM 1.7 mg/dL (1.8-2.4); PHOSPHOROUS 4.8 mg/dL (2.5-4.9); POTASSIUM - SERUM 3.5 mmol/L (3.5-5.1)
[2019-09-13 17:08] LABS: AEROBE ID Final report (()); RESULT 1 Escherichia coli (())
--- NOTE | 2019-09-13 18:24 | MORECARE ---
CASE MANAGEMENT DISCHARGE SUMMARY PATIENT: ELIE MARIA UNIT: [id number] ADM DATE: 09/06/19 AGE: 49 : 66 SEX: M ROOM/BED: D.2310 AUTHOR: GLENN,DOC PHYSICIAN: REFERRING PHYSICIAN: SAMANTHA BONILLA MD DATE OF SERVICE: 09/13/19 Discharge Plan Patient Name: ELIE MARIA Facility: [facility]:[place] : 1970 Planned Disposition: Home Health Service Anticipated Discharge Date: 09/09/19 Discharge Date: 09/13/2019 Expected LOS: 3 Initial Reviewer: [email or web address] Initial Review Date: 09/06/2019 Generated: 09/13/19 7:24 pm Comments DCP- Discharge Planning Updated by [id number]: Elen Jean on 09/13/19 5:[address] CM received notification that patient was stable enough for transfer to another hospital for infectious disease eval. Transfer center notified plan to transfer to [facility] later today. Nursing getting transfer paperwork and ambulance transfer ready. CM will continue to follow and assist as needed with discharge planning / needs DCP- Discharge Planning Updated by [email or web address]: Amy Scherer on 09/12/19 3:[address] Alcaraz here and patient is being transferred to ICU. Dr. Alcaraz states to cancel transfer to [facility] and they would reorder it when ready, possibly to [facility]. I called and spoke to transfer team and informed to cancel transfer to [facility]. DCP- Discharge Planning Updated by [email or web address]: Amy Scherer on 09/12/19 2:[address] Stacey called and states that Dr. Alcaraz would like patient transferred to [facility] in [place] for infectious disease consultation. I called the transfer team and spoke with Mar and face sheet, requested clinical faxed. CM will continue to follow and assist with discharge planning/needs. DCP- Discharge Planning Updated by [email or web address]: Milly Soni on 09/06/19 2:[address] DC PLAN: Return home with girlfriend (primary cg) and resumption of [facility] ANTICIPATED DC NEEDS: Resumption of Home Health. CM met with patient and his girlfriend, Kayleen to complete initial dc planning assessment. CM educated patient on the CM role and verbal consent given by Kayleen to complete assessment. CM verified patient's address, phone number, and emergency contact phone numbers. Patient lives at home with Kayleen who reports she is his primary cg at home. He has required total assistance since dc from hospital. Patient currently has [facility] and wishes to resume at discharge. MADHAVI form signed by Kayleen for resumption of [facility]. Signed form placed in chart and signed form given to Kayleen. At discharge patient plans to return home and feels this is a safe discharge. Kayleen denied further known discharge needs at this time. Kayleen reports she will transport him home at time of discharge. Patient appears to be sleeping during assessment and never acknowledged cm in room. Patient will need Physical Therapy once MD feels patient is medically stable to participate. CM will continue to follow and will assist as needed with dc plans/needs. Milly Soni RN, [facility] Coverage Notice Reviewer: [id number] - Milly Soni Notice Issued Date-Time: 09/06/2019 14:58 Notice Type: Patient Choice Letter Notice Delivered To: Other Relationship to Patient: Other Relationship [employer] Operations Agent Name: Kayleen Encarnacion -gf Delivery Method: HAND - Hand Delivered My Days: Prior Verbal Notification: Recipient Understood Notice: Recipient Signature: Evans Rec Note Co-signed by Attending: Coverage Notice Comment: MADHAVI form presented, explained and signed by the patient;s girlfriend, Kayleen Encarnacion for resumption of [facility]. Signed form placed on patient's chart and a signed copy left with the Kayleen for her records. Last DP export: 09/12/19 3:18 Patient Name: ELIE MARIA Page [id number] at 1824 All edits/amendments must be made on the electronic document DICTATION DATE: 09/13/191823 CONCRETE RUBBER: SHAUN 09/13/191823 RPT#: [id number] DC DATE:09/13/19 STATUS: DIS IN [facility] [address] [place] [address] END OF REPORT
--- NOTE | 2019-09-13 18:31 | MORECARE ---
CASE MANAGEMENT DISCHARGE SUMMARY PATIENT: ELIE MARIA UNIT: [id number] ADM DATE: 09/06/19 AGE: 49 : 66 SEX: M ROOM/BED: D.2310 AUTHOR: GLENN,DOC PHYSICIAN: REFERRING PHYSICIAN: SAMANTHA BONILLA MD DATE OF SERVICE: 09/13/19 Discharge Plan Patient Name: ELIE MARIA Facility: [facility]:[place] : 1970 Planned Disposition: Home Health Service Anticipated Discharge Date: 09/09/19 Discharge Date: 09/13/2019 Expected LOS: 3 Initial Reviewer: [email or web address] Initial Review Date: 09/06/2019 Generated: 09/13/19 7:31 pm Comments DCP- Discharge Planning Updated by [id number]: Elen Jean on 09/13/19 5:[address] CM received notification that patient was stable enough for transfer to another hospital for infectious disease eval. Transfer center notified plan to transfer to [facility] later today. Nursing getting transfer paperwork and ambulance transfer ready. CM will continue to follow and assist as needed with discharge planning / needs DCP- Discharge Planning Updated by [email or web address]: Amy Scherer on 09/12/19 3:[address] Alcaraz here and patient is being transferred to ICU. Dr. Alcaraz states to cancel transfer to [facility] and they would reorder it when ready, possibly to [facility]. I called and spoke to transfer team and informed to cancel transfer to [facility]. DCP- Discharge Planning Updated by [id number]: Amy Scherer on 09/12/19 2:[address] Stacey called and states that Dr. Alcaraz would like patient transferred to [facility] in [place] for infectious disease consultation. I called the transfer team and spoke with Mar and face sheet, requested clinical faxed. CM will continue to follow and assist with discharge planning/needs. DCP- Discharge Planning Updated by [email or web address]: Milly Soni on 09/06/19 2:[address] DC PLAN: Return home with girlfriend (primary cg) and resumption of [facility] ANTICIPATED DC NEEDS: Resumption of Home Health. CM met with patient and his girlfriend, Kayleen to complete initial dc planning assessment. CM educated patient on the CM role and verbal consent given by Kayleen to complete assessment. CM verified patient's address, phone number, and emergency contact phone numbers. Patient lives at home with Kalyeen who reports she is his primary cg at home. He has required total assistance since dc from hospital. Patient currently has [facility] and wishes to resume at discharge. MADHAVI form signed by Kayleen for resumption of [facility]. Signed form placed in chart and signed form given to Kayleen. At discharge patient plans to return home and feels this is a safe discharge. Kayleen denied further known discharge needs at this time. Kayleen reports she will transport him home at time of discharge. Patient appears to be sleeping during assessment and never acknowledged cm in room. Patient will need Physical Therapy once MD feels patient is medically stable to participate. CM will continue to follow and will assist as needed with dc plans/needs. Milly Soni RN, [facility] Coverage Notice Reviewer: [id number] - Milly Soni Notice Issued Date-Time: 09/06/2019 14:58 Notice Type: Patient Choice Letter Notice Delivered To: Other Relationship to Patient: Other Relationship Security Messenger Name: Kayleen Encarnacion -gf Delivery Method: HAND - Hand Delivered My Days: Prior Verbal Notification: Recipient Understood Notice: Recipient Signature: Med Rec Note Co-signed by Attending: Coverage Notice Comment: MADHAVI form presented, explained and signed by the patient;s girlfriend, Kayleen Encarnacion for resumption of [facility]. Signed form placed on patient's chart and a signed copy left with the Kayleen for her records. Last DP export: 09/13/19 5:24 Patient Name: ELIE MARIA Page [phone] at 1831 All edits/amendments must be made on the electronic document DICTATION DATE: 09/13/191830 MANAGER AREA: SHAUN 09/13/191830 RPT#: [id number] DC DATE:09/13/19 STATUS: DIS IN [facility] [address] [place] [address] END OF REPORT
[2019-09-20 19:08] LABS: AEROBE ID Final report (()); RESULT 1 Escherichia coli (())
== END 2019-09-13 15:57 | DRG 871 ==
LOC: D.ER 11:02 → D.MS 13:35 → D.ICU 13:35 → D.CVICU 09-10 20:30 → D.MS 09-11 10:25 → D.ICU 09-12 16:08
PROVIDERS: Family Medicine; Internal Medicine; Internal Medicine Hematology & Oncology; Internal Medicine Pulmonary Disease; ADMIT Internal Medicine Nephrology; ATTEND Internal Medicine Nephrology
DX: A41.9 Sepsis, unspecified organism (principal); J18.9 Pneumonia, unspecified organism; E11.10 Type 2 diabetes mellitus with ketoacidosis without coma; R65.21 Severe sepsis with septic shock; E43 Unspecified severe protein-calorie malnutrition; G92 Toxic encephalopathy; I50.23 Acute on chronic systolic (congestive) heart failure; N39.0 Urinary tract infection, site not specified; B49 Unspecified mycosis; N17.9 Acute kidney failure, unspecified; E87.1 Hypo-osmolality and hyponatremia; F17.203 Nicotine dependence unspecified, with withdrawal; N04.9 Nephrotic syndrome with unspecified morphologic changes; E87.2 Acidosis; I50.32 Chronic diastolic (congestive) heart failure; I38 Endocarditis, valve unspecified; E87.3 Alkalosis; L89.150 Pressure ulcer of sacral region, unstageable; Z91.19 Patient's noncompliance with other medical treatment and regimen; D64.9 Anemia, unspecified; I95.9 Hypotension, unspecified; R19.7 Diarrhea, unspecified; E11.40 Type 2 diabetes mellitus with diabetic neuropathy, unspecified